=== PATIENT | female | born 1950 | race Caucasian/White ===

== ENCOUNTER 2020-03-15 12:30 | Outpatient (REF) | payer MEDICARE, SELFPAY | END 2020-03-15 12:31 | disposition home or self-care (01) | LOC: HO.10HDL 12:30 | PROVIDERS: PCP Internal Medicine; Visit Provider Internal Medicine | DX: E78.00 Pure hypercholesterolemia, unspecified (principal) | CPT/HCPCS: 86900; 86901 ==

== ENCOUNTER → 2020-03-16 11:27 | Outpatient (BNVA) | payer MEDICARE, SELFPAY | PROVIDERS: PCP Internal Medicine; Visit Provider Surgery Vascular Surgery | DX: I83.11 Varicose veins of right lower extremity with inflammation (principal) | CPT/HCPCS: 99203 ==

== ENCOUNTER 2020-03-25 10:23 | Outpatient (REF) | payer MEDICARE, SELFPAY ==
--- NOTE | 2020-03-25 10:28 | US_ITS ---
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 COMPARISON: 05/12/2020 and 08/11/2016. TECHNIQUE: Color flow triplex imaging and compression Doppler was performed to evaluate both the deep and the superficial systems bilaterally. To evaluate the superficial system, the examination was performed in the upright position. Color-flow Doppler ultrasound and compression ultrasound were utilized. In addition, maneuvers were utilized to demonstrate reflux. FINDINGS: 1. DEEP VENOUS ULTRASOUND OF THE RIGHT LOWER EXTREMITY: Respiratory variation, normal compression and augmented flow are noted in the right common femoral vein as well as the right popliteal vein and there is no evidence of deep venous thrombosis at these locations. There is no evidence of reflux in the deep system in either the common femoral vein or the popliteal vein. There is no evidence of a Vergara's cyst. 2. SUPERFICIAL ULTRASOUND WITH DOPPLER OF RIGHT LOWER EXTREMITY: The right great saphenous vein at the saphenofemoral junction measures 7 mm without reflux, at the mid thigh 5 mm with reflux greater than 3.5 seconds, [id number] 4 mm with reflux greater than 3.5 seconds, [id number]-[id number] 4 mm with reflux of greater than 3.4 seconds, at mid calf 2 mm with reflux greater than 3 seconds, and at the ankle measures 2 mm with reflux greater than 3.5 seconds. The right small saphenous vein measures 3 mm and shows no reflux. Varicosities are seen about the proximal and mid thigh as well as the proximal and midcalf. 3. DEEP VENOUS ULTRASOUND OF THE LEFT LOWER EXTREMITY: Respiratory variation, normal compression and augmented flow are noted in the left common femoral vein as well as the left popliteal vein and there is no evidence of deep venous thrombosis at these locations. There is no evidence of reflux in the deep system in either the common femoral vein or the popliteal vein. There is no evidence of a Vergara's cyst. 4. SUPERFICIAL ULTRASOUND WITH DOPPLER OF LEFT LOWER EXTREMITY: Left great saphenous vein at the saphenofemoral junction measures 6 mm, at the mid thigh 3 mm, [id number]-[id number] 3 mm, qufge-wlj-fqol 3 mm, at mid calf 2 mm and at the ankle measures 2 mm. There is no reflux demonstrated in the left great saphenous vein. The left small saphenous vein measures 2 mm and shows no reflux. US/US venous duplex LE BI IMPRESSION: 1. No evidence of reflux or thrombus in the common femoral veins or popliteal veins bilaterally. 2. No reflux identified at the saphenofemoral junctions but with right lower extremity reflux from the proximal thigh to the ankle of greater than 3 seconds.
== END 2020-03-25 10:24 | disposition home or self-care (01) ==
LOC: HO.US 10:23
PROVIDERS: PCP Internal Medicine; Visit Provider Surgery Vascular Surgery
DX: I83.11 Varicose veins of right lower extremity with inflammation (principal); I83.893 Varicose veins of bilateral lower extremities with other complications
CPT/HCPCS: 93970

== ENCOUNTER → 2020-04-06 09:57 | Outpatient (BNVA) | payer MEDICARE, SELFPAY | PROVIDERS: PCP Internal Medicine; Visit Provider Surgery Vascular Surgery | DX: I83.11 Varicose veins of right lower extremity with inflammation (principal) | CPT/HCPCS: 99212 ==

== ENCOUNTER 2020-08-13 11:41 | Outpatient (REF) | payer MEDICARE, SELFPAY ==
[2020-08-13 13:04] LABS: MANUAL DIFF FLAG NO
[2020-08-13 13:23] LABS: Alanine Aminotransferase 10 U/L (0-31); Albumin Level 4.4 g/dL (3.5-5.0); Alkaline Phosphatase 66 U/L (39-117); Anion Gap 12 (12-20); Aspartate Amino Transferase 16 U/L (5-31); Basophils Percent Auto 0.5 % (0-2); Bilirubin Total 0.6 mg/dL (0.0-1.0); Blood Urea Nitrogen 24 mg/dL (9-16); Carbon Dioxide 29 mmol/L (22-29); Chloride 105 mmol/L (96-108); Cholesterol 227 mg/dL; Eosinophils Absolute Auto 0.1 X10*3/uL (0.0-0.4); Eosinophils Percent Auto 1.8 % (0-4); Estimated Glomerular Filt Rate 48; Glucose Random 97 mg/dL (60-115); HDL Cholesterol 60 mg/dL; Hematocrit 40.5 % (37-47); Hemoglobin 12.9 g/dl (12.0-16.0); Imm Gran Abs Auto 0.01 X10*3/uL (0.00-0.03); Imm Gran Pct Auto 0.3 % (0.0-0.4); LDL Cholesterol Calculated 154 mg/dl; Lymphocytes Percent Auto 24.9 % (20-40); Mean Corpuscular HGB Conc 31.9 g/dl (31.0-35.0); Mean Corpuscular Hemoglobin 30.9 pg (27.0-33.0); Mean Corpuscular Volume 97.1 fL (80-98); Mean Platelet Volume 10.6 fL (9.4-12.3); Monocytes Absolute Auto 0.3 X10*3/uL (0.1-1.2); Monocytes Percent Auto 8.6 % (2-11); Neutrophils Absolute Auto 2.5 X10*3/uL (2.0-8.3); Neutrophils Percent Auto 63.9 % (45-73); Platelet Count 228 X10*3/uL (160-400); Potassium 4.1 mmol/L (3.3-5.1); Red Blood Count 4.17 X10*6/uL (4.20-5.50); Red Cell Distribution Width 14.1 % (11.0-16.0); Sodium 142 mmol/L (135-145); Total Protein 6.7 g/dL (6.5-8.0); Triglycerides 68 mg/dL; White Blood Count 3.9 X10*3/uL (4.8-10.8)
[2020-08-13 13:46] LABS: Free T4 (Free Thyroxine) 0.95 ng/dL (0.71-1.85); Thyroid Stimulating Hormone 2.03 uIU/mL (0.32-4.0); Vitamin D 25-OH Total 13.7 ng/mL (>30)
[2020-08-13 13:55] LABS: Folate 8.3 ng/mL (> or = 4.0); Vitamin B12 165 pg/mL (200-900)
== END 2020-08-13 11:42 | disposition home or self-care (01) ==
LOC: HO.LAB 11:41
PROVIDERS: PCP Internal Medicine; Visit Provider Internal Medicine
DX: E78.00 Pure hypercholesterolemia, unspecified (principal); M85.80 Other specified disorders of bone density and structure, unspecified site
CPT/HCPCS: 36415; 80053; 80061; 82306; 82607; 82746; 84439; 84443; 85025

== ENCOUNTER 2020-08-17 14:19 | Outpatient (REF) | payer MEDICARE, SELFPAY ==
[2020-08-17 16:06] LABS: Folate 9.9 ng/mL (> or = 4.0); Vitamin B12 183 pg/mL (200-900)
[2020-08-22 19:17] LABS: Intrinsic Factor Antibodies Negative (Negative)
[2020-08-25 12:22] LABS: Parietal Cell Antibody 26.7 Unit (<=20.0)
== END 2020-08-17 14:20 | disposition home or self-care (01) ==
LOC: HO.LAB 14:19
PROVIDERS: PCP Internal Medicine; Visit Provider Internal Medicine
DX: E53.8 Deficiency of other specified B group vitamins (principal)
CPT/HCPCS: 36415; 82607; 82746; 83516; 86340

== ENCOUNTER 2020-11-17 09:06 | Outpatient (REF) | payer MEDICARE, SELFPAY ==
--- NOTE | ~2020-11-17 | MM_ITS ---
EXAMINATION: BONE DENSITOMETRY CLINICAL INDICATION: Other specified disorders of bone density and structure. COMPARISON: Previous BD dated 06/09/2016 and baseline BD dated 10/17/2007. TECHNIQUE: Using a ThinkSmart DXA System (software version: 13.1) manufactured by [employer], dual-energy x-ray absorptiometry was performed of the lumbar spine and left hip. The images are of good technical quality. Summary results are attached. FINDINGS: AP SPINE L1-L4: Current: BMD 1.218 g/cm2, Z-score 2.0, T-score 0.3, normal, 2.1% decrease from previous, 5.5% decrease from baseline (<5% change is not significant). Prior: BMD 1.244 g/cm2. Baseline: BMD 1.289 g/cm2. LEFT FEMUR, NECK: Current: BMD 0.660 g/cm2, Z-score -1.0, T-score -2.7, osteoporosis. Prior: BMD 0.756 g/cm2. Baseline: BMD 0.892 g/cm2. LEFT FEMUR, TOTAL: Current: BMD 0.814 g/cm2, Z-score -0.1, T-score -1.5, osteopenia, 11.9% decrease from previous, 18.9% decrease from baseline (<5% change is not significant). Prior: BMD 0.924 g/cm2. Baseline: BMD 1.004 g/cm2. IDENTIFIED RISK FACTORS: Menopause. HISTORY OF FRACTURE: None listed. MEDICATIONS: Calcium supplement and/or multivitamin. Vitamin D. MM/XR DEXA axial skeleton IMPRESSION: 1. DIAGNOSIS: Osteoporosis based on the lowest T-score value of -2.7 in the femoral neck applying World Health Organization criteria. 2. 10-YEAR FRACTURE RISK PREDICTION, FRAX: Major osteoporotic fracture (clinical spine, forearm, hip or shoulder) 16.5%. Hip fracture 4.8%. 3. Treatment Recommendations: NOF guidelines recommend consideration for treatment in postmenopausal women and men age 50 and older presenting with the following: -A hip or vertebral (clinical or morphometric) fracture. -T-score less than or equal to -2.5 at the femoral neck or spine after appropriate evaluation to exclude secondary causes. -Low bone mass at the hip or spine and a 10-year fracture probability by FRAX of greater than or equal to 3% for hip fracture or greater than or equal to 20% for major osteoporotic fracture based on the [place] adapted WHO algorithm. 4. Other Recommendations: All treatment decisions require clinical judgment and consideration of individual patient factors, including patient preferences, comorbidities, previous drug use, risk factors not captured in the FRAX model (e.g. frailty, falls, vitamin D deficiency, increased bone turnover, interval significant decline in bone density) and possible under or overestimation of fracture risk by FRAX. Additional medical evaluation for secondary cause of low bone mineral density may be appropriate. FUTURE SCAN RECOMMENDATION: People with diagnosed cases of osteoporosis or at high risk for fracture should have regular bone mineral density tests. For patients eligible for Medicare, routine testing is allowed once every 2 years. The testing frequency can be increased to one year for patients who have rapidly progressing disease, those who are receiving or discontinuing medical therapy to restore bone mass, or have additional risk factors.
== END 2020-11-17 09:07 | disposition home or self-care (01) ==
LOC: HO.MAMMO 09:06
PROVIDERS: Visit Provider Internal Medicine
DX: Z13.820 Encounter for screening for osteoporosis (principal); M81.0 Age-related osteoporosis without current pathological fracture; M85.80 Other specified disorders of bone density and structure, unspecified site; Z78.0 Asymptomatic menopausal state; Z79.899 Other long term (current) drug therapy
CPT/HCPCS: 77080

== ENCOUNTER 2020-11-20 10:12 | Outpatient (REF) | payer MEDICARE, SELFPAY ==
[2020-11-20 11:19] LABS: MANUAL DIFF FLAG NO
[2020-11-20 11:25] LABS: Basophils Percent Auto 0.3 % (0-2); Eosinophils Absolute Auto 0.1 X10*3/uL (0.0-0.4); Eosinophils Percent Auto 2.1 % (0-4); Hematocrit 41.7 % (37-47); Hemoglobin 13.4 g/dl (12.0-16.0); Imm Gran Abs Auto 0.01 X10*3/uL (0.00-0.03); Imm Gran Pct Auto 0.3 % (0.0-0.4); Lymphocytes Absolute Auto 1.1 X10*3/uL (1.2-4.9); Lymphocytes Percent Auto 32.4 % (20-40); Mean Corpuscular HGB Conc 32.1 g/dl (31.0-35.0); Mean Corpuscular Hemoglobin 31.3 pg (27.0-33.0); Mean Corpuscular Volume 97.4 fL (80-98); Mean Platelet Volume 10.3 fL (9.4-12.3); Monocytes Absolute Auto 0.3 X10*3/uL (0.1-1.2); Monocytes Percent Auto 9.4 % (2-11); Neutrophils Absolute Auto 1.9 X10*3/uL (2.0-8.3); Neutrophils Percent Auto 55.5 % (45-73); Platelet Count 223 X10*3/uL (160-400); Red Blood Count 4.28 X10*6/uL (4.20-5.50); Red Cell Distribution Width 13.3 % (11.0-16.0); White Blood Count 3.4 X10*3/uL (4.8-10.8)
[2020-11-20 11:42] LABS: Alanine Aminotransferase 11 U/L (0-31); Albumin Level 4.4 g/dL (3.5-5.0); Alkaline Phosphatase 67 U/L (39-117); Anion Gap 11 (12-20); Aspartate Amino Transferase 17 U/L (5-31); Bilirubin Total 0.5 mg/dL (0.0-1.0); Blood Urea Nitrogen 18 mg/dL (9-16); Calcium 9.3 mg/dL (8.4-10.2); Carbon Dioxide 29 mmol/L (22-29); Chloride 106 mmol/L (96-108); Estimated Glomerular Filt Rate 53; Glucose Random 115 mg/dL (60-115); Potassium 4.1 mmol/L (3.3-5.1); Sodium 142 mmol/L (135-145); Total Protein 6.7 g/dL (6.5-8.0)
[2020-11-20 12:08] LABS: Free T4 (Free Thyroxine) 0.93 ng/dL (0.71-1.85); Thyroid Stimulating Hormone 1.15 uIU/mL (0.32-4.0)
[2020-11-22 04:01] LABS: Folate 8.6 ng/mL (> or = 4.0); Vitamin B12 1697 pg/mL (200-900)
== END 2020-11-20 10:13 | disposition home or self-care (01) ==
LOC: HO.LAB 10:12
PROVIDERS: PCP Internal Medicine; Visit Provider Internal Medicine
DX: E53.8 Deficiency of other specified B group vitamins (principal)
CPT/HCPCS: 36415; 80053; 82607; 82746; 84439; 84443; 85025

== ENCOUNTER 2021-02-22 09:52 | Outpatient (REF) | payer MEDICARE, SELFPAY ==
--- NOTE | ~2021-02-22 | MM_ITS ---
EXAMINATION: MM SCREENING DIGITAL BREAST TOMOSYNTHESIS, BILATERAL CLINICAL INFORMATION: Screening. Asymptomatic. The lifetime risk of breast cancer based on the Tyrer-Cuzick Model is 3%. COMPARISON: Mammography: 11/11/2019, 11/05/2018, 09/07/2017 TECHNIQUE: Digital breast tomosynthesis is performed in both the craniocaudal and mediolateral oblique views along with computer-aided detection (CAD). Synthesized 2D images are generated from the tomosynthesis. Additional right CC view is provided. FINDINGS: There are scattered areas of fibroglandular density (ACR BI-RADS breast composition Category b). There are no significant masses, abnormal calcifications, or other abnormalities. There is a dermal lesion overlying the upper outer right breast and also marked with mole marker. The axilla are unremarkable. No significant changes. MM/MM tomosynthesis screening BI IMPRESSION: No mammographic evidence of malignancy. ASSESSMENT: BI-RADS 2: Benign RECOMMENDATION: Routine annual mammography screening. This patient's information was entered into a reminder system with a target due date for their next mammogram.
== END 2021-02-22 09:53 | disposition home or self-care (01) ==
LOC: HO.MAMMO 09:52
PROVIDERS: PCP Internal Medicine; Visit Provider Internal Medicine
DX: Z12.31 Encounter for screening mammogram for malignant neoplasm of breast (principal)
CPT/HCPCS: 77063; 77067

== ENCOUNTER → 2021-06-30 12:03 | Outpatient (BNVA) | payer MEDICARE, SELFPAY | PROVIDERS: PCP Internal Medicine; Visit Provider Orthopaedic Surgery | DX: M75.41 Impingement syndrome of right shoulder (principal); M75.42 Impingement syndrome of left shoulder | CPT/HCPCS: 20610; 99212; J1100 ==

== ENCOUNTER 2021-08-09 10:42 | Outpatient (REF) | payer MEDICARE, SELFPAY ==
[2021-08-09 11:02] LABS: MANUAL DIFF FLAG NO
[2021-08-09 11:32] LABS: Estimated Average Glucose 111 mg/dL; Hemoglobin A1c % 5.5 %
[2021-08-09 11:35] LABS: Basophils Percent Auto 0.9 % (0-2); Eosinophils Absolute Auto 0.5 X10*3/uL (0.0-0.4); Eosinophils Percent Auto 15.2 % (0-4); Hematocrit 39.4 % (37.0-47.0); Hemoglobin 12.6 g/dl (12.0-16.0); Imm Gran Abs Auto 0.01 X10*3/uL (0.00-0.03); Imm Gran Pct Auto 0.3 % (0.0-0.4); Lymphocytes Absolute Auto 0.9 X10*3/uL (1.2-4.9); Lymphocytes Percent Auto 25.8 % (20-40); Mean Corpuscular Hemoglobin 31.3 pg (27.0-33.0); Mean Platelet Volume 10.4 fL (9.4-12.3); Monocytes Absolute Auto 0.3 X10*3/uL (0.1-1.2); Monocytes Percent Auto 8.6 % (2-11); Neutrophils Absolute Auto 1.7 x10*3/uL (2.0-8.3); Neutrophils Percent Auto 49.2 % (45-73); Platelet Count 217 X10*3/uL (160-400); Red Blood Count 4.02 X10*6/uL (4.20-5.50); Red Cell Distribution Width 13.3 % (11.0-16.0); White Blood Count 3.5 X10*3/uL (4.8-10.8)
[2021-08-09 12:12] LABS: Alanine Aminotransferase 16 U/L (0-31); Alkaline Phosphatase 55 U/L (39-117); Anion Gap 12 (12-20); Aspartate Amino Transferase 19 U/L (5-31); Bilirubin Total 0.6 mg/dL (0.0-1.0); Blood Urea Nitrogen 28 mg/dL (9-16); Carbon Dioxide 26 mmol/L (22-29); Chloride 110 mmol/L (96-108); Cholesterol 203 mg/dL; Estimated Glomerular Filt Rate 52; Glucose Random 92 mg/dL (60-115); HDL Cholesterol 57 mg/dL; LDL Cholesterol Calculated 134 mg/dl; Potassium 4.5 mmol/L (3.3-5.1); Sodium 143 mmol/L (135-145); Total Protein 6.1 g/dL (6.5-8.0); Triglycerides 64 mg/dL
[2021-08-09 12:15] LABS: Free T4 (Free Thyroxine) 0.92 ng/dL (0.71-1.85); Thyroid Stimulating Hormone 2.41 uIU/mL (0.32-4.0); Vitamin D 25-OH Total 32.9 ng/mL (>30)
[2021-08-09 12:35] LABS: Vitamin B12 434 pg/mL (200-900)
== END 2021-08-09 10:43 | disposition home or self-care (01) ==
LOC: HO.LAB 10:42
PROVIDERS: PCP Internal Medicine; Visit Provider Internal Medicine
DX: E78.00 Pure hypercholesterolemia, unspecified (principal); E53.8 Deficiency of other specified B group vitamins
CPT/HCPCS: 36415; 80053; 80061; 82306; 82607; 82746; 83036; 84439; 84443; 85025

== ENCOUNTER 2021-08-30 08:11 | Outpatient (REF) | payer MEDICARE, SELFPAY ==
--- NOTE | ~2021-08-30 | US_ITS ---
EXAMINATION: US RETROPERITONEAL LIMITED (RENAL ONLY) CLINICAL INFORMATION: Essential hypertension. COMPARISON: None. TECHNIQUE: Routine grayscale imaging of kidneys was performed. Addition retroperitoneal Doppler was performed of the kidneys and the artery. FINDINGS: RIGHT KIDNEY: 8.6 x 4.3 x 5.4 cm (SAG x AP x TRV). The kidney is normal in size, contour, and echogenicity. Renal cortical thickness is normal. No calculi or focal parenchymal lesions. No hydronephrosis. LEFT KIDNEY: 9.6 x 5.5 x 4.7 cm (SAG x AP x TRV). The kidney is normal in size, contour, and echogenicity. Renal cortical thickness is normal. No calculi or focal parenchymal lesions. No hydronephrosis. There are multiple peripelvic left renal cyst seen. DOPPLER EXAM: Right Kidney: The proximal renal artery velocity measures 165 cm/s, midsegment measures 185 cm/s and distal segment measures 10 5 cm/s. The average resistive index measures 0.66. The renal aortic ratio cannot be calculated due to elevated midaortic velocity of 116 cm/s. Left Kidney: The proximal renal artery velocity measures 138 cm/s, midsegment measures 130 cm/s and distal segment measures 59 cm/s. The average resistive index measures 0.68. The renal aortic ratio cannot be calculated due to elevated midaortic velocity of 116 cm/s. US/US renal doppler IMPRESSION: Left peripelvic renal cysts. No echogenic renal calculi or hydronephrosis in either side. There is no suggestion for renal artery stenosis on renal Doppler exam.
--- NOTE | ~2021-08-30 | US_ITS ---
EXAMINATION: US RETROPERITONEAL LIMITED (RENAL ONLY) CLINICAL INFORMATION: Essential hypertension. COMPARISON: None. TECHNIQUE: Routine grayscale imaging of kidneys was performed. Addition retroperitoneal Doppler was performed of the kidneys and the artery. FINDINGS: RIGHT KIDNEY: 8.6 x 4.3 x 5.4 cm (SAG x AP x TRV). The kidney is normal in size, contour, and echogenicity. Renal cortical thickness is normal. No calculi or focal parenchymal lesions. No hydronephrosis. LEFT KIDNEY: 9.6 x 5.5 x 4.7 cm (SAG x AP x TRV). The kidney is normal in size, contour, and echogenicity. Renal cortical thickness is normal. No calculi or focal parenchymal lesions. No hydronephrosis. There are multiple peripelvic left renal cyst seen. DOPPLER EXAM: Right Kidney: The proximal renal artery velocity measures 165 cm/s, midsegment measures 185 cm/s and distal segment measures 10 5 cm/s. The average resistive index measures 0.66. The renal aortic ratio cannot be calculated due to elevated midaortic velocity of 116 cm/s. Left Kidney: The proximal renal artery velocity measures 138 cm/s, midsegment measures 130 cm/s and distal segment measures 59 cm/s. The average resistive index measures 0.68. The renal aortic ratio cannot be calculated due to elevated midaortic velocity of 116 cm/s. US/US renal BI IMPRESSION: Left peripelvic renal cysts. No echogenic renal calculi or hydronephrosis in either side. There is no suggestion for renal artery stenosis on renal Doppler exam.
[2021-08-30 11:41] LABS: Appearance Urine CLEAR; Color Urine YELLOW; Glucose Urine UA NEG (NEG); Leukocyte Esterase Urine NEG (NEG); Nitrite Urine NEG (NEG); PH 5.5 (5.0-8.0); Urine Blood NEG (NEG); Urine Ketones NEG (NEG); Urine Protein NEG (NEG-TRACE)
[2021-08-30 11:56] LABS: RBC Urine 0 /HPF (0); WBC Urine 0-2 /HPF (0-4)
[2021-08-30 11:57] LABS: Squamous Epithelial Cell Urine TRACE /LPF
[2021-08-30 11:59] LABS: Alanine Aminotransferase 11 U/L (0-31); Albumin Level 3.9 g/dL (3.5-5.0); Alkaline Phosphatase 55 U/L (39-117); Anion Gap 9 (12-20); Aspartate Amino Transferase 13 U/L (5-31); Bilirubin Total 0.6 mg/dL (0.0-1.0); Blood Urea Nitrogen 24 mg/dL (9-16); C Reactive Protein 0.06 mg/dL (< or = 0.50); Calcium 9.1 mg/dL (8.4-10.2); Carbon Dioxide 27 mmol/L (22-29); Chloride 109 mmol/L (96-108); Estimated Glomerular Filt Rate 49; Glucose Random 99 mg/dL (60-115); Potassium 4.3 mmol/L (3.3-5.1); Sodium 141 mmol/L (135-145)
[2021-08-30 12:56] LABS: Erythrocyte Sedimentation Rate 5 MM/HR (0-20)
[2021-09-01 07:07] LABS: Lyme Abs Screen <0.90 index
[2021-09-02 23:28] LABS: Anti Nuclear Antibody Pattern Nuclear, Nucleolar; Anti Nuclear Antibody Screen POSITIVE (NEGATIVE); Anti Nuclear Antibody Titer 1:40 titer
== END 2021-08-30 08:12 | disposition home or self-care (01) ==
LOC: HO.HMGCX 08:11
PROVIDERS: PCP Internal Medicine; Visit Provider Internal Medicine
DX: I10 Essential (primary) hypertension (principal); R42 Dizziness and giddiness; R79.89 Other specified abnormal findings of blood chemistry
CPT/HCPCS: 36415; 76775; 80053; 81001; 85652; 86038; 86039; 86140; 86617; 86618; 93975

== ENCOUNTER 2021-10-18 11:00 | Outpatient (RCR) | payer MEDICARE, SELFPAY ==
--- NOTE | 2021-08-08 14:43 | MHC.PT.EP ---
[facility] [place] Office [place] Office [place] Office [address] Walter Aguirre [address] [phone] F: [phone] F: [phone] F: [phone] F: [phone] Physical Therapy Plan of Care Date of Evaluation: Date of Surgery: N/A Diagnosis: chronic B shoulder pain Assessment: pt presents to physical therapy with pain, decreased range of motion, decreased strength, impaired functional mobility, impaired postural awareness, and gait deviations. pt is a good candidate for skilled PT due to age, potential remediation of impairments, typical disease/condition progression and prognosis, comorbidities, and motivation. pt would benefit from tailored strengthening and stretching exercise program, functional training, gait training, postural re-training, neuromuscular re-education, modalities as needed for pain, equipment safety demonstration. Frequency and Duration: The patient will be seen 2x/wk fo r6 wks Short Term Goals: pt will be I w/ HEP to promote self-management of condition. pt will improve B shoulder flexion AROM by 10 degrees to promote ease in reaching for objects on higher shelves. pt will improve R shoulder internal rotation to at least L2 to promote ease in upper body dressing. Mcc Goals: pt will report a statistically significant improvement in self-reported outcome measure, SPADI, to promote return to PLOF. pt will improve R shoulder flexion and abduction strength to 5/5 to promote ease in carrying 10# object x15' to promote return to carrying groceries. Treatment Plan: Modalities to reduce pain, spasms and effusion. Manual therapy to restore motion and function. Therapeutic exercise to improve strength and flexibility. Neuromuscular re-education for posture and balance. Therapeutic activities to return to functional activities of daily living. Electronically signed by: Radha Preciado PT, DPT Please sign and return to therapist. Thank you for your referral.
--- NOTE | 2021-10-18 12:51 | MHC.PT.DC ---
[facility] [place] Office [place] Office [place] Office [address] Walter Aguirre [address] [phone] F: [phone] F: [phone] F: [phone] F: [phone] Physical Therapy Discharge Report Diagnosis: chronic B shoulder pain Date of Surgery: N/A Date of Evaluation: 08/08/21 Date of Discharge: 10/18/21 Treatments to Date: 16 Cancellations to Date: 0 No Shows to Date: 0 Discharge Status: Improved Function Independent with HEP Discharge Summary: The patient overall has reported a significant improvement in her shoulder pain frequency and intensity. She no longer gets any stabbing pain. She is able to perform more activities that used to exacerbate her pain with little to no symptoms. The patient at this time presents with mostly soft tissue restrictions including tension and trigger points that reproduce her radiating symptoms. She has been educated several times regarding the importance of finding a massage therapist to work out these restrictions. She is independent with her home exercise program. She is discharged from this physical therapy plan of care per her request after attending for two months. Electronically signed by: Radha Preciado PT, DPT Please sign and return to therapist. Thank you for your referral.
== END 2021-10-18 12:51 | disposition home or self-care (01) ==
LOC: HO.PT 11:00
PROVIDERS: PCP Internal Medicine; Visit Provider Orthopaedic Surgery
DX: M75.41 Impingement syndrome of right shoulder (principal); M75.42 Impingement syndrome of left shoulder
CPT/HCPCS: 97110; 97140; 97150; 97162; 97164

== ENCOUNTER 2022-05-31 12:21 | Outpatient (REF) | payer MEDICARE, SELFPAY ==
--- NOTE | ~2022-05-31 | MM_ITS ---
EXAMINATION: MM SCREENING DIGITAL BREAST TOMOSYNTHESIS, BILATERAL CLINICAL INFORMATION: Screening. Asymptomatic. The lifetime risk of breast cancer based on the Tyrer-Cuzick Model is 3%. COMPARISON: Mammography: 02/22/2021, 11/11/2019, 11/05/2018 TECHNIQUE: Digital breast tomosynthesis is performed in both the craniocaudal and mediolateral oblique views along with computer-aided detection (CAD). Synthesized 2D images are generated from the tomosynthesis. FINDINGS: There are scattered areas of fibroglandular density (ACR BI-RADS breast composition Category b). There are no significant masses, abnormal calcifications, or other abnormalities. No developing density or architectural abnormality. A dermal lesion again noted overlying the upper outer right breast. The axilla are unremarkable. No significant changes. MM/MM tomosynthesis screening BI IMPRESSION: No mammographic evidence of malignancy. ASSESSMENT: BI-RADS 2: Benign RECOMMENDATION: Routine annual mammography screening. This patient's information was entered into a reminder system with a target due date for their next mammogram.
== END 2022-05-31 12:22 | disposition home or self-care (01) ==
LOC: HO.MAMMO 12:21
PROVIDERS: PCP Internal Medicine; Visit Provider Internal Medicine
DX: Z12.31 Encounter for screening mammogram for malignant neoplasm of breast (principal)
CPT/HCPCS: 77063; 77067

== ENCOUNTER 2022-08-18 11:13 | Outpatient (REF) | payer MEDICARE, SELFPAY ==
[2022-08-18 11:26] LABS: MANUAL DIFF FLAG NO
[2022-08-18 11:49] LABS: Basophils Percent Auto 0.7 % (0-2); Eosinophils Absolute Auto 0.1 X10*3/uL (0.0-0.4); Eosinophils Percent Auto 3.3 % (0-4); Hematocrit 40.1 % (37.0-47.0); Hemoglobin 13.2 g/dl (12.0-16.0); Imm Gran Abs Auto 0.01 X10*3/uL (0.00-0.03); Imm Gran Pct Auto 0.3 % (0.0-0.4); Lymphocytes Absolute Auto 0.8 X10*3/uL (1.2-4.9); Lymphocytes Percent Auto 26.2 % (20-40); Mean Corpuscular HGB Conc 32.9 g/dl (31.0-35.0); Mean Corpuscular Hemoglobin 31.2 pg (27.0-33.0); Mean Corpuscular Volume 94.8 fL (80.0-98.0); Mean Platelet Volume 10.3 fL (9.4-12.3); Monocytes Absolute Auto 0.2 X10*3/uL (0.1-1.2); Monocytes Percent Auto 7.9 % (2-11); Neutrophils Absolute Auto 1.9 x10*3/uL (2.0-8.3); Neutrophils Percent Auto 61.6 % (45-73); Platelet Count 194 X10*3/uL (160-400); Red Blood Count 4.23 X10*6/uL (4.20-5.50); Red Cell Distribution Width 13.2 % (11.0-16.0); White Blood Count 3.1 X10*3/uL (4.8-10.8)
[2022-08-18 12:08] LABS: Estimated Average Glucose 114 mg/dL; Hemoglobin A1c % 5.6 %
[2022-08-18 12:23] LABS: Alanine Aminotransferase 9 U/L (0-31); Albumin Level 4.1 g/dL (3.5-5.0); Alkaline Phosphatase 53 U/L (39-117); Anion Gap 11 (12-20); Aspartate Amino Transferase 15 U/L (5-31); Bilirubin Total 0.8 mg/dL (0.0-1.0); Blood Urea Nitrogen 20 mg/dL (9-16); Calcium 9.1 mg/dL (8.4-10.2); Carbon Dioxide 31 mmol/L (22-29); Chloride 105 mmol/L (96-108); Cholesterol 240 mg/dL; Estimated Glomerular Filt Rate 44; Glucose Random 101 mg/dL (60-115); HDL Cholesterol 51 mg/dL; LDL Cholesterol Calculated 171 mg/dl; Potassium 3.8 mmol/L (3.3-5.1); Sodium 143 mmol/L (135-145); Total Protein 6.4 g/dL (6.5-8.0); Triglycerides 90 mg/dL
[2022-08-18 12:38] LABS: Folate 8.1 ng/mL (> or = 4.0); Free T4 (Free Thyroxine) 1.03 ng/dL (0.71-1.85); Vitamin B12 376 pg/mL (200-900); Vitamin D 25-OH Total 45.6 ng/mL (>30)
== END 2022-08-18 11:14 | disposition home or self-care (01) ==
LOC: HO.LAB 11:13
PROVIDERS: PCP Internal Medicine; Visit Provider Internal Medicine
DX: R73.02 Impaired glucose tolerance (oral) (principal); E53.8 Deficiency of other specified B group vitamins; E78.00 Pure hypercholesterolemia, unspecified; M81.0 Age-related osteoporosis without current pathological fracture
CPT/HCPCS: 36415; 80053; 80061; 82306; 82607; 82746; 83036; 84439; 84443; 85025

== ENCOUNTER 2022-08-29 09:01 | Outpatient (REF) | payer MEDICARE, SELFPAY ==
--- NOTE | ~2022-08-29 | XR_ITS ---
EXAMINATION: XR SHOULDER, RIGHT XR SHOULDER, LEFT CLINICAL INFORMATION: Right shoulder pain COMPARISON: Studies dating between February 18, 2019 and February 02, 2012. TECHNIQUE: Two views of each of the shoulders. 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 Mild widening of the acromioclavicular joints appears unchanged compared with priors. No fracture or dislocation is seen. Bony mineralization appears preserved. The soft tissues appear unremarkable. The aorta is atherosclerotic. There are mild degenerative changes of the spine.
--- NOTE | ~2022-08-29 | XR_ITS ---
EXAMINATION: XR SHOULDER, RIGHT XR SHOULDER, LEFT CLINICAL INFORMATION: Right shoulder pain COMPARISON: Studies dating between February 18, 2019 and February 02, 2012. TECHNIQUE: Two views of each of the shoulders. 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 Mild widening of the acromioclavicular joints appears unchanged compared with priors. No fracture or dislocation is seen. Bony mineralization appears preserved. The soft tissues appear unremarkable. The aorta is atherosclerotic. There are mild degenerative changes of the spine.
== END 2022-08-29 09:02 | disposition home or self-care (01) ==
LOC: HO.XRAY 09:01
PROVIDERS: PCP Internal Medicine; Visit Provider Internal Medicine
DX: M25.511 Pain in right shoulder (principal); M25.512 Pain in left shoulder
CPT/HCPCS: 73030

== ENCOUNTER → 2022-11-03 12:30 | Outpatient (BNVA) | payer MEDICARE, SELFPAY | PROVIDERS: PCP Internal Medicine; Visit Provider Physician Assistant | DX: M75.41 Impingement syndrome of right shoulder (principal); M75.42 Impingement syndrome of left shoulder | CPT/HCPCS: 20610; 99202; J1020 ==

== ENCOUNTER 2023-01-05 09:55 | Outpatient (AMB) | payer MEDICARE, SELFPAY ==
--- NOTE | 2023-01-05 10:06 | AM.OFFVISNUR ---
Intake Intake Visit Reasons: B-12 Allergies lisinopril Allergy (Intermediate, Verified 09/13/22 09:41) Cough latex [Latex] Allergy (Mild, Verified 09/13/22 09:41) [facility] Office Meds cyanocobalamin (vitamin B-12) Performing Provider: Jackeline Oakley MD Administered by: Courtney Minor RN on 01/05/23 10:12 Dose Route Admin Location Lot Number Expiration Date [facility] Peer Specialist 1,000 mcg IM left deltoid [id number] 02/24/23 [id number] [facility] Coding Diagnoses Assessment & Plan Assessment & Plan Orders: Orders AMB Vitamin B12 Injection Patient Supplied Today E53.8 - Deficiency of other specified B group vitamins
== END 2023-01-05 10:13 | disposition home or self-care (01) ==
PROVIDERS: PCP Internal Medicine; Visit Provider Internal Medicine
DX: E53.8 Deficiency of other specified B group vitamins (principal)
CPT/HCPCS: 96372; J3420

== ENCOUNTER 2023-02-07 11:42 | Outpatient (AMB) | payer MEDICARE, SELFPAY ==
--- NOTE | 2023-02-07 11:42 | A.OFFVIS_ITS ---
Intake Intake Visit Reasons: TH- B/L shoulder pain Intake Note: Lyudmila a 73 year old female who is schedule for a telephone visit for a follow up of bilateral shoulder pain. Patient reports constant pain that gets worse with reaching and grasping motion. She has tried and failed PT. Allergies lisinopril Allergy (Intermediate, Verified 02/07/23 11:46) Cough latex [Latex] Allergy (Mild, Verified 02/07/23 11:46) [facility] HPI TH- B/L shoulder pain HPI Details 73 yo female returns via telehealth for bilat shoulder pain. She continues to have pain in both shoulders. She continues to have pain with daily activities, such as reaching or lifting. She has had steroid injections in both shoulders with no relief. She states she experienced some dizziness from the previoius injections. She has taken NSAIDs at home without significant relief. She has done PT for up to 8-12 weeks and also home therapy exercises. [facility] Medical History (Updated 02/07/23 @ 11:47 by Aiden Hussein PA-C) Toe fracture, right Hypercholesterolemia Surgical History H/O wrist surgery History of arthroscopy of left knee History of arthroscopy of left shoulder History of arthroscopy of right shoulder History of cholecystectomy Family History (Updated 08/24/22 @ 10:10 by Sarina Huitron) Father FH: prostate cancer Bladder cancer Mother CVD (cardiovascular disease) Social History Housing: House Alcohol intake: never Patient Tobacco Use Status: Never used Tobacco e-Cigarette/Vaping Use: Never Used Second Hand Smoke Exposure: No service: No Current occupational status: retired Current occupation: [employer] Cognitive needs: No Hearing needs: No Vision needs: Yes Review of Systems Const All systems reviewed & are unremarkable except as noted in HPI and below Physical Exam Extrem Other: Bilateral shoulder: Normal to inspection. Tenderness over the bicipital groove and along the deltoid region of the shoulder. She has tenderness along the muscle belly of the bicep, there is no palpable defect along the proximal or distal bicep tendon. Forward flexion to 110, external rotation to 90, internal rotation to S1. Pain with RTC strength testing. Pain with movement along the impingement arc, right > left. Negative cross body abduction. NVI. Assessment & Plan Assessment & Plan (1) Rotator cuff impingement syndrome of right shoulder: Code(s): M75.41 - Impingement syndrome of right shoulder (2) Left shoulder tendonitis: Code(s): M77.8 - Other enthesopathies, not elsewhere classified Plan Ms Zarate continues to fail conservative treatment and experiences worsening symptoms in her daily activities. An MRI of both shoulder has been ordered to further evaluate the integrity of the rotator cuff to determine the next step in her treatment. Telehealth Telehealth Location of provider rendering services: practice address Location of patient: address on file Patient Identification confirmed using: Name, : Yes Telehealth method: voice only Patient verbally consented to treatment: Yes Patient verbally consented to billing insurance company: Yes Patient informed of any privacy concerns related to visit: Yes Minutes spent on Phone/Video with Pt.: 10 Coding Level of Care Code Est Pt Level 3 (69876) Diagnoses Rotator cuff impingement syndrome of right shoulder M75.41 Left shoulder tendonitis M77.8
== END 2023-02-07 11:49 | disposition home or self-care (01) ==
LOC: HO.HOS 11:42
PROVIDERS: PCP Internal Medicine; Visit Provider Physician Assistant
DX: M75.41 Impingement syndrome of right shoulder (principal); M77.8 Other enthesopathies, not elsewhere classified
CPT/HCPCS: 99442

== ENCOUNTER → 2023-02-07 11:42 | Outpatient (BNVA) | payer MEDICARE, SELFPAY | PROVIDERS: PCP Internal Medicine; Visit Provider Physician Assistant ==

== ENCOUNTER 2023-02-19 09:26 | Outpatient (REF) | payer MEDICARE, SELFPAY ==
[2023-02-19 10:37] LABS: Alanine Aminotransferase 13 U/L (0-31); Albumin Level 4.2 g/dL (3.5-5.0); Alkaline Phosphatase 57 U/L (39-117); Anion Gap 14 (12-20); Aspartate Amino Transferase 17 U/L (5-31); Bilirubin Total 0.6 mg/dL (0.0-1.0); Blood Urea Nitrogen 17 mg/dL (9-16); Calcium 9.4 mg/dL (8.4-10.2); Carbon Dioxide 26 mmol/L (22-29); Chloride 107 mmol/L (96-108); Cholesterol 210 mg/dL (<200); Estimated Glomerular Filt Rate 54; Glucose Random 102 mg/dL (60-115); HDL Cholesterol 62 mg/dL (>40); LDL Cholesterol Calculated 136 mg/dL (<100); Potassium 3.7 mmol/L (3.3-5.1); Sodium 143 mmol/L (135-145); Total Protein 6.6 g/dL (6.5-8.0); Triglycerides 63 mg/dL (<150)
== END 2023-02-19 09:27 | disposition home or self-care (01) ==
LOC: HO.LAB 09:26
PROVIDERS: PCP Internal Medicine; Visit Provider Internal Medicine
DX: E78.00 Pure hypercholesterolemia, unspecified (principal)
CPT/HCPCS: 36415; 80053; 80061

== ENCOUNTER 2023-02-23 09:34 | Outpatient (AMB) | payer MEDICARE, SELFPAY ==
[2023-02-23 09:44] VITALS: BP 112/62; PULSE 70; O2SAT 97; BMI 23.6
--- NOTE | 2023-02-23 09:44 | A.OFFPC_ITS ---
Vital Signs 02/23/23 09:44 Height 5 ft 2 in Weight 129 lb BMI 23.6 BP 112/62 Blood Pressure Location Lt brachial Position Sitting Pulse 70 Pulse Source Pulse Oximeter Pulse Oximetry (%) 97 Oxygen Delivery Method Room Air Intake Visit Reasons: Cholesterol Allergies lisinopril Allergy (Intermediate, Verified 02/23/23 09:45) Cough latex [Latex] Allergy (Mild, Verified 02/23/23 09:45) RASH Medication List - Last Reconciled 02/23/23 by Jackeline Oakley MD calcium carbonate-vitamin D3 600 mg-5 mcg (200 unit) (Calcium 600 + D(3)) caps PO cetirizine (Zyrtec) 10 mg PO DAILY PRN clobetasol 0.05% 1 appl topical BID 30 days cyanocobalamin (vitamin B-12) Inject 1000 mcg Q week x 4 weeks then once a month IM; 3 months fluticasone propionate 50 mcg/actuation (Flonase Allergy Relief) 2 sprays intranasal DAILY hydrochlorothiazide 12.5 mg PO DAILY 90 days Tobacco use date assessed: 08/24/22 Fall risk assessment: No Falls in past year Last assessed Fall Risk: 02/23/23 Dental Screening Dental Screen Date: 02/23/23 Did you have a dental visit in the last 12 months?: Yes Did you have a dental problem in the last 6 months where you did not have access to dental care?: No Was dental information given to patient?: Patient has dentist HPI Cholesterol HPI Details 73-year-old female with hypercholesterol emia osteoporosis impaired glucose tolerance hypertension last seen in August 2022 due to left ear infection. Patient is here for follow-up bone density is due, up-to-date with mammogram and colonoscopy. Patient had problems with shoulder pain has seen Orthopedics through Telehealth diagnosis of right talar cough impingement syndrome on conservative measure and was advised to get an MRI [facility] Medical History (Updated 02/07/23 @ 11:47 by Aiden Hussein PA-C) Toe fracture, right Hypercholesterolemia Surgical History History of arthroscopy of left shoulder H/O wrist surgery History of arthroscopy of right shoulder History of cholecystectomy History of arthroscopy of left knee Family History (Updated 08/24/22 @ 10:10 by Sarina Huitron) Father FH: prostate cancer Bladder cancer Mother CVD (cardiovascular disease) Social History Housing: House Alcohol intake: never Patient Tobacco Use Status: Never used Tobacco e-Cigarette/Vaping Use: Never Used Second Hand Smoke Exposure: No service: No Current occupational status: retired Current occupation: Rt handed Cognitive needs: No Hearing needs: No Vision needs: Yes Questionnaire PHQ-9 Over the last 2 weeks, how often have you been bothered by any of the following problems? 1. Little interest or pleasure in doing things: not at all 2. Feeling down, depressed, or hopeless: not at all 3. Trouble falling or staying asleep, or sleeping too much: not at all 4. Feeling tired or having little energy: not at all 5. Poor appetite or overeating: not at all 6. Feeling bad about yourself - or that you are a failure or have let yourself or your family down: not at all 7. Trouble concentrating on things, such as reading the newspaper or watching television: not at all 8. Moving or speaking so slowly that other people could have noticed. Or the opposite - being so fidgety or restless that you have been moving around a lot more than usual: not at all 9. Thoughts that you would be better off or of hurting yourself in some way: not at all Total score: 0 Depression Screening Interpretation: Negative Source: Developed by Drs. Sawyer Childs, Selena Weathers, Claus Jefferson and colleagues, with an educational navin from [employer]. Thrive Questionnaire Date Thrive assessed: 08/24/22 AUDIT C Alcohol Use Questionnaire (AUDIT-C) 1. How often do you have a drink containing alcohol?: Never 3. How often do you have six or more drinks on one occasion?: Never Total Score: 0 JINNY-7 AMB Questionnaire JINNY-7 Date JINNY - 7 assessed: 08/24/22 Source: Developed by Drs. Sawyer Childs, Selena Weathers, Claus Jefferson and colleagues, with an educational navin from [employer]. Physical exam (Primary Care) Vital Signs: Last Vital Signs Pulse 70 02/23/23 09:44 BP 112/62 02/23/23 09:44 Pulse Ox 97 02/23/23 09:44 Oxygen Delivery Method Room Air 02/23/23 09:44 BMI result Body Mass Index 23.6 Tobacco/Smoking Status: Tobacco use Status Tobacco use date assessed 08/24/22 02/23/23 09:50 Patient Tobacco Use Status Never used Tobacco 02/23/23 09:50 e-Cigarette/Vaping Use Never Used 02/23/23 09:50 PHQ-9: PHQ-9 Score PHQ-9: Total score 0 02/23/23 09:50 Depression Screening Interpretation: Negative Thrive Assessment: Date of Thrive Assessment Date Thrive assessed 08/24/22 02/23/23 09:50 Const General: alert; No acute distress Eyes Conjunctivae: conjunctivae normal Resp Auscultation: clear to auscultation bilaterally Cardio Rate: regular rate Rhythm: regular rhythm GI Inspection: Yes normal to inspection Extrem General: Yes normal to inspection and No edema Assessment and Plan Assessment & Plan (1) Bilateral shoulder pain: Code(s): M25.511 - Pain in right shoulder; M25.512 - Pain in left shoulder Plan: Patient is being followed up by orthopedics and has recommended MRI of the shoulder (2) Hypertension: Code(s): I10 - Essential (primary) hypertension Plan: Continue with blood pressure medication. Decrease salt intake and exercise on hydrochlorothiazide noted weight loss (3) Impaired glucose tolerance: Code(s): R73.02 - Impaired glucose tolerance (oral) Plan: Decrease the amount of carbohydrate intake, pasta, bread, rice and potatoes are all sugar and that is aside from all the sweet stuff, remember that fruits are good but they are Sweet also. Noted weight loss (4) Osteoporosis: Comment: November 2020 Code(s): M81.0 - Age-related osteoporosis without current pathological fracture Plan: Advised patient to get bone density test (5) Hypercholesterolemia: Code(s): E78.00 - Pure hypercholesterolemia, unspecified Plan: Avoid fried foods, chicken skin, eggs, butter margarine, pastries and meat. Be it pork or beef they have a lot of cholesterol LDL goal of less than 130 and triglyceride of less than 150. LDL has dropped down as patient lost weight Orders: Orders XR DEXA axial skeleton Today M81.0 - Age-related osteoporosis without current pathological fracture Medications: Changed From cyanocobalamin (vitamin B-12) Inject 1000 mcg Q week x 4 weeks then once a month IM; 3 months 10 mL 3RF E53.8 - Deficiency of other specified B group vitamins To cyanocobalamin (vitamin B-12) once Q 3 months 30 mL 3RF 3 months E53.8 - Deficiency of other specified B group vitamins Discontinued naproxen (Naprosyn) Discontinued Reason: Doctor's Order 500 mg PO BID 60 tabs 2RF M79.671 - Pain in right foot hydrochlorothiazide Discontinued Reason: Doctor's Order 12.5 mg PO DAILY 90 days 90 tabs 3RF I10 - Essential (primary) hypertension Coding Level of Care Code Est Pt Level 4 (06963) Diagnoses Bilateral shoulder pain M25.511; M25.512 Hypertension I10 Impaired glucose tolerance R73.02 Osteoporosis M81.0 Hypercholesterolemia E78.00
== END 2023-02-23 10:57 | disposition home or self-care (01) ==
PROVIDERS: Visit Provider Internal Medicine
DX: M25.511 Pain in right shoulder (principal); M25.512 Pain in left shoulder; I10 Essential (primary) hypertension; R73.02 Impaired glucose tolerance (oral); M81.0 Age-related osteoporosis without current pathological fracture; E78.00 Pure hypercholesterolemia, unspecified
CPT/HCPCS: 99214

== ENCOUNTER 2023-03-09 08:39 | Outpatient (REF) | payer MEDICARE, SELFPAY ==
--- NOTE | ~2023-03-09 | MM_ITS ---
EXAMINATION: BONE DENSITOMETRY CLINICAL INDICATION: Osteoporosis. COMPARISON: Previous BD dated 11/17/2020 and baseline BD dated 10/17/2007. TECHNIQUE: Using a '[employer] DXA System (software version: 13.1) manufactured by [employer], dual-energy x-ray absorptiometry was performed of the lumbar spine and left hip. The images are of good technical quality. Summary results are attached. FINDINGS: LEFT FEMUR, NECK: Current: BMD 0.778 g/cm2, Z-score 0.1, T-score -1.9, osteopenia. Prior: BMD 0.660 g/cm2. Baseline: BMD 0.892 g/cm2. LEFT FEMUR, TOTAL: Current: BMD 0.860 g/cm2, Z-score 0.6, T-score -1.2, osteopenia, 5.7% increase from previous, 14.3% decrease from baseline (<5% change is not significant). Prior: BMD 0.814 g/cm2. Baseline: BMD 1.004 g/cm2. AP SPINE L1-L4: Current: BMD 1.102 g/cm2, Z-score 1.3, T-score -0.7, normal, 9.5% decrease from previous, 14.5% decrease from baseline (<5% change is not significant). Prior: BMD 1.218 g/cm2. Baseline: BMD 1.289 g/cm2. IDENTIFIED RISK FACTORS: Menopause. HISTORY OF FRACTURE: None listed. MEDICATIONS: Calcium, vitamin D. MM/XR DEXA axial skeleton IMPRESSION: 1. DIAGNOSIS: Osteopenia based on the lowest T-score value of -1.9 in the lumbar spine applying World Health Organization criteria. 2. 10-YEAR FRACTURE RISK PREDICTION, FRAX: Major osteoporotic fracture (clinical spine, forearm, hip or shoulder) 11.2%. Hip fracture 2.4%. 3. Treatment Recommendations: NOF guidelines recommend consideration for treatment in postmenopausal women and men age 50 and older presenting with the following: -A hip or vertebral (clinical or morphometric) fracture. -T-score less than or equal to -2.5 at the femoral neck or spine after appropriate evaluation to exclude secondary causes. -Low bone mass at the hip or spine and a 10-year fracture probability by FRAX of greater than or equal to 3% for hip fracture or greater than or equal to 20% for major osteoporotic fracture based on the [place] adapted WHO algorithm. 4. Other Recommendations: All treatment decisions require clinical judgment and consideration of individual patient factors, including patient preferences, comorbidities, previous drug use, risk factors not captured in the FRAX model (e.g. frailty, falls, vitamin D deficiency, increased bone turnover, interval significant decline in bone density) and possible under or overestimation of fracture risk by FRAX. Additional medical evaluation for secondary cause of low bone mineral density may be appropriate. FUTURE SCAN RECOMMENDATION: People with diagnosed cases of osteoporosis or at high risk for fracture should have regular bone mineral density tests. For patients eligible for Medicare, routine testing is allowed once every 2 years. The testing frequency can be increased to one year for patients who have rapidly progressing disease, those who are receiving or discontinuing medical therapy to restore bone mass, or have additional risk factors.
== END 2023-03-09 08:40 | disposition home or self-care (01) ==
LOC: HO.MAMMO 08:39
PROVIDERS: PCP Internal Medicine; Visit Provider Internal Medicine
DX: Z13.820 Encounter for screening for osteoporosis (principal); Z78.0 Asymptomatic menopausal state; M81.0 Age-related osteoporosis without current pathological fracture
CPT/HCPCS: 77080

== ENCOUNTER 2023-03-10 15:15 | Outpatient (REF) | payer MEDICARE, SELFPAY ==
--- NOTE | ~2023-03-10 | MR_ITS ---
EXAMINATION: MR SHOULDER WITHOUT CONTRAST, RIGHT CLINICAL INFORMATION: Impingement syndrome. Patient reports pain. Patient reports prior surgery for rotator cuff impingement 2010 COMPARISON: Prior images of the x-ray from 08/29/2022 are not available for comparison, likely due to PACS issue. Correlation done with the report. TECHNIQUE: MRI of the shoulder without contrast was performed on a high-field scanner. FINDINGS: ROTATOR CUFF: Mild supraspinatus tendinosis. Mild bursal surface fraying anteriorly. Probable small 3 mm intrasubstance tear in the distal anterior fibers. Mild infraspinatus tendinosis. Teres minor and subscapularis tendons are intact.. Mild atrophy and fatty infiltration of the teres minor. BICEPS: Mild biceps tendinosis. CORACOACROMIAL ARCH: Probable prior acromioplasty. Widening of the acromioclavicular distance. Foci of susceptibility artifact present in this region. Degenerative signal in the labrum LABRUM/CAPSULE: Degenerative signal in the labrum. No displaced labral tear is seen. Inferior capsule is intact. GLENOHUMERAL JOINT/MARROW: Small inferior humeral head spurring. Patchy cartilage thinning in the humeral head, mild posterior glenoid cartilage thinning. Small effusion. There is intermediate low signal foci within the joint space, including the inferior joint space, which could reflect synovitis or debris/loose bodies. MR/MR shoulder RT wo con IMPRESSION: 1. Mild supraspinatus tendinosis. Mild bursal surface fraying anteriorly. Probable small 3 mm intrasubstance tear in the distal anterior fibers. 2. Mild infraspinatus tendinosis. 3. Mild biceps tendinosis. 4. Labral degeneration. No displaced labral tear is seen. 5. Mild glenohumeral joint arthritis. Small effusion. Intermediate low signal foci within the joint space, could reflect synovitis or debris/loose bodies. 6. Probable prior acromioplasty. Widening of the acromioclavicular distance. Correlate with surgical history.
== END 2023-03-10 15:16 | disposition home or self-care (01) ==
LOC: HO.MRI 15:15
PROVIDERS: Visit Provider Physician Assistant
DX: M75.41 Impingement syndrome of right shoulder (principal)
CPT/HCPCS: 73221

== ENCOUNTER 2023-03-23 10:05 | Outpatient (AMB) | payer MEDICARE, SELFPAY ==
--- NOTE | 2023-03-23 10:26 | A.OFFVIS_ITS ---
Intake Vital Signs 03/23/23 10:28 Height 5 ft 2 in Weight 192 lb BMI 35.1 Intake Visit Reasons: OV-B/L rotator cuff MRI review Intake Note: Lyudmila is a 73 year old Right hand dominant female who presnets today for an MRI review of her right shoulder. Allergies lisinopril Allergy (Intermediate, Verified 02/23/23 09:45) Cough latex [Latex] Allergy (Mild, Verified 02/23/23 09:45) RASH HPI OV-B/L rotator cuff MRI review HPI Details Lyudmila is a 73 year old woman who presents for an MRI review of her right shoulder. She has been seen for left shoulder tendinitis & right shoulder impingement. She complains of bilateral shoulder pain with daily activity, worse with overhead activity and at night. She found no improvement following PT and no relief from previous bilateral steroid injections by ORLIN Hussein on 11/03/22. She takes NSAIDs. [facility] Medical History Toe fracture, right Hypercholesterolemia Surgical History History of arthroscopy of left shoulder H/O wrist surgery History of arthroscopy of right shoulder History of cholecystectomy History of arthroscopy of left knee Family History Father FH: prostate cancer Bladder cancer Mother CVD (cardiovascular disease) Social History Housing: House Alcohol intake: never Patient Tobacco Use Status: Never used Tobacco e-Cigarette/Vaping Use: Never Used Second Hand Smoke Exposure: No service: No Current occupational status: retired Current occupation: Rt handed Cognitive needs: No Hearing needs: No Vision needs: Yes Review of Systems Const All systems reviewed & are unremarkable except as noted in HPI and below Physical Exam Vital Signs: BMI result Body Mass Index 35.1 Const General: no acute distress, alert and awake Orientation/consciousness: patient oriented x3 HEENT Head: Yes normocephalic and Yes atraumatic Eyes EOM: EOMs intact bilaterally Resp Effort & Inspection: normal respiratory effort and able to speak in complete sentences Cardio Jugular venous distension: no JVD Skin General skin exam: turgor normal Rashes: no rashes Neuro General: patient oriented x3 Extrem Other: +H/N - EC 30/90/130/L5 Psych Appearance: grossly normal Affect: normal affect Attitude: cooperative Results Reviewed Results Reviewed: 1. Mild supraspinatus tendinosis. Mild bursal surface fraying anteriorly. Probable small 3 mm intrasubstance tear in the distal anterior fibers. 2. Mild infraspinatus tendinosis. 3. Mild biceps tendinosis. 4. Labral degeneration. No displaced labral tear is seen. 5. Mild glenohumeral joint arthritis. Small effusion. Intermediate low signal foci within the joint space, could reflect synovitis or debris/loose bodies. 6. Probable prior acromioplasty. Widening of the acromioclavicular distance. Correlate with surgical history. Assessment & Plan Assessment & Plan (1) Right shoulder tendinitis: Code(s): M77.8 - Other enthesopathies, not elsewhere classified Plan: This is a 73 year old woman with right shoulder tendinitis. I discussed her diagnosis, MRI results, and treatment options. She is currently doing ok and no additional intervention warranted at this time. (2) Left shoulder tendonitis: Code(s): M77.8 - Other enthesopathies, not elsewhere classified Coding Level of Care Code Est Pt Level 3 (42007) Diagnoses Right shoulder tendinitis M77.8 Left shoulder tendonitis M77.8
[2023-03-23 10:28] VITALS: BMI 35.1
== END 2023-03-23 11:39 | disposition home or self-care (01) ==
PROVIDERS: PCP Internal Medicine; Visit Provider Orthopaedic Surgery
DX: M77.8 Other enthesopathies, not elsewhere classified (principal)
CPT/HCPCS: 99213

== ENCOUNTER → 2023-03-23 10:05 | Outpatient (BNVA) | payer MEDICARE, SELFPAY | PROVIDERS: PCP Internal Medicine; Visit Provider Orthopaedic Surgery | DX: M77.8 Other enthesopathies, not elsewhere classified (principal) | CPT/HCPCS: 99212 ==

== ENCOUNTER 2023-05-30 08:51 | Outpatient (AMB) | payer MEDICARE, SELFPAY ==
--- NOTE | 2023-05-30 09:08 | AM.OFFVISNUR ---
Intake Intake Visit Reasons: B-12 Shot Allergies lisinopril Allergy (Intermediate, Verified 02/23/23 09:45) Cough latex [Latex] Allergy (Mild, Verified 02/23/23 09:45) RASH Office Meds cyanocobalamin (vitamin B-12) 1,000 mcg/mL injection solution Performing Provider: Jackeline Oakley MD Performing Location: [facility] Administered by: Courtney Minor RN on 05/30/23 09:08 Dose Route Admin Location Dispensed Lot Number Expiration Date [facility] Storage Battery Tester 1,000 mcg IM left deltoid 1 mL [id number] 11/24/24 97616-298-94 [employer] Coding Assessment & Plan Assessment & Plan Orders: Orders AMB Vitamin B12 Injection Patient Supplied Today D51.9 - Vitamin B12 deficiency anemia, unspecified
== END 2023-05-30 09:09 | disposition home or self-care (01) ==
PROVIDERS: PCP Internal Medicine; Visit Provider Internal Medicine
DX: D51.9 Vitamin B12 deficiency anemia, unspecified (principal)
CPT/HCPCS: 96372; J3420

== ENCOUNTER 2023-06-18 14:52 | Outpatient (REF) | payer MEDICARE, SELFPAY | END 2023-06-18 14:53 | disposition home or self-care (01) | LOC: HO.MAMMO 14:52 | PROVIDERS: PCP Internal Medicine; Visit Provider Internal Medicine | DX: Z12.31 Encounter for screening mammogram for malignant neoplasm of breast (principal) | CPT/HCPCS: 77063; 77067 ==

== ENCOUNTER → 2023-06-18 15:00 | Outpatient (BNV) | payer MEDICARE, SELFPAY | PROVIDERS: PCP Internal Medicine; Visit Provider Radiology Diagnostic Radiology | DX: Z12.31 Encounter for screening mammogram for malignant neoplasm of breast (principal) | CPT/HCPCS: 77063; 77067 ==

== ENCOUNTER 2023-08-09 10:16 | Outpatient (AMB) | payer MEDICARE, SELFPAY ==
--- NOTE | 2023-08-09 10:24 | AM.OFFVISNUR ---
Intake Intake Visit Reasons: B-12 shot Allergies lisinopril Allergy (Intermediate, Verified 02/23/23 09:45) Cough latex [Latex] Allergy (Mild, Verified 02/23/23 09:45) RASH Office Meds cyanocobalamin (vitamin B-12) 1,000 mcg/mL injection solution Performing Provider: Jackeline Oakley MD Performing Location: [facility] Administered by: Mercedes Hurtado RN on 08/09/23 10:24 Dose Route Admin Location Dispensed Lot Number Expiration Date [facility] Biology Professor 1,000 mcg IM 1 mL [id number] 04/26/24 0063-6312-54 [facility] Coding Assessment & Plan Assessment & Plan Orders: Orders AMB Vitamin B12 Injection Patient Supplied Today E53.8 - Deficiency of other specified B group vitamins
== END 2023-08-09 10:36 | disposition home or self-care (01) ==
PROVIDERS: PCP Internal Medicine; Visit Provider Internal Medicine
DX: E53.8 Deficiency of other specified B group vitamins (principal)
CPT/HCPCS: 96372; J3420

== ENCOUNTER 2023-08-27 10:05 | Outpatient (REF) | payer MEDICARE, SELFPAY ==
[2023-08-27 10:22] LABS: MANUAL DIFF FLAG NO
[2023-08-27 11:28] LABS: Basophils Percent Auto 0.6 % (0-2); Eosinophils Absolute Auto 0.1 X10*3/uL (0.0-0.4); Eosinophils Percent Auto 1.7 % (0-4); Hematocrit 40.4 % (37.0-47.0); Hemoglobin 13.2 g/dl (12.0-16.0); Imm Gran Abs Auto 0.01 X10*3/uL (0.00-0.03); Imm Gran Pct Auto 0.3 % (0.0-0.4); Lymphocytes Absolute Auto 1.1 X10*3/uL (1.2-4.9); Lymphocytes Percent Auto 32.7 % (20-40); Mean Corpuscular HGB Conc 32.7 g/dl (31.0-35.0); Mean Corpuscular Hemoglobin 31.4 pg (27.0-33.0); Mean Platelet Volume 10.6 fL (9.4-12.3); Monocytes Absolute Auto 0.3 X10*3/uL (0.1-1.2); Monocytes Percent Auto 8.6 % (2-11); Neutrophils Percent Auto 56.1 % (45-73); Platelet Count 233 X10*3/uL (160-400); Red Blood Count 4.21 X10*6/uL (4.20-5.50); Red Cell Distribution Width 13.2 % (11.0-16.0); White Blood Count 3.5 X10*3/uL (4.8-10.8)
[2023-08-27 11:38] LABS: Estimated Average Glucose 108 mg/dL; Hemoglobin A1c % 5.4 % (<6.0)
[2023-08-27 12:08] LABS: Alanine Aminotransferase 11 U/L (0-31); Albumin Level 4.1 g/dL (3.5-5.0); Alkaline Phosphatase 57 U/L (39-117); Anion Gap 12 (12-20); Aspartate Amino Transferase 14 U/L (5-31); Bilirubin Total 0.5 mg/dL (0.0-1.0); Blood Urea Nitrogen 20 mg/dL (9-16); Calcium 9.1 mg/dL (8.4-10.2); Carbon Dioxide 28 mmol/L (22-29); Chloride 109 mmol/L (96-108); Cholesterol 200 mg/dL (<200); Estimated Glomerular Filt Rate 53; Glucose Random 92 mg/dL (60-115); HDL Cholesterol 47 mg/dL (>40); LDL Cholesterol Calculated 139 mg/dL (<100); Sodium 145 mmol/L (135-145); Total Protein 6.5 g/dL (6.5-8.0); Triglycerides 74 mg/dL (<150)
[2023-08-27 12:17] LABS: Free T4 (Free Thyroxine) 0.98 ng/dL (0.71-1.85); Thyroid Stimulating Hormone 1.88 uIU/mL (0.32-4.0); Vitamin D 25-OH Total 53.4 ng/mL (>30)
[2023-08-27 12:31] LABS: Folate 7.4 ng/mL (> or = 4.0); Vitamin B12 461 pg/mL (200-900)
== END 2023-08-27 10:06 | disposition home or self-care (01) ==
LOC: HO.LAB 10:05
PROVIDERS: PCP Internal Medicine; Visit Provider Internal Medicine
DX: I10 Essential (primary) hypertension (principal); E78.00 Pure hypercholesterolemia, unspecified; R73.02 Impaired glucose tolerance (oral)
CPT/HCPCS: 36415; 80053; 80061; 82306; 82607; 82746; 83036; 84439; 84443; 85025

== ENCOUNTER 2023-08-29 09:02 | Outpatient (AMB) | payer MEDICARE, SELFPAY ==
[2023-08-29 09:09] VITALS: BP 116/68; PULSE 69; O2SAT 96; BMI 23.1
--- NOTE | 2023-08-29 09:09 | MHC.PC.OV ---
Vital Signs 08/29/23 09:09 Height 5 ft 2 in Weight 126 lb 0.6 oz BMI 23.1 BP 116/68 Blood Pressure Location Lt brachial Position Sitting Pulse 69 Pulse Source Pulse Oximeter Pulse Oximetry (%) 96 Oxygen Delivery Method Room Air Intake Visit Reasons: Annual Exam Intake Note: Patient is here today for a physical. [employer] Required: No Allergies lisinopril Allergy (Intermediate, Verified 08/29/23 09:09) Cough latex [Latex] Allergy (Mild, Verified 08/29/23 09:09) RASH Medication List - Last Reconciled 08/29/23 by Jackeline Oakley MD calcium carbonate-vitamin D3 600 mg-5 mcg (200 unit) (Calcium 600 + D(3)) caps PO cetirizine (Zyrtec) 10 mg PO DAILY PRN clobetasol 0.05% 1 appl topical BID 30 days cyanocobalamin (vitamin B-12) once Q 3 months 3 months fluticasone propionate 50 mcg/actuation (Flonase Allergy Relief) 2 sprays intranasal DAILY Tobacco use date assessed: 08/29/23 Fall risk assessment: No Falls in past year Last assessed Fall Risk: 08/29/23 Dental Screening Dental Screen Date: 02/23/23 Did you have a dental visit in the last 12 months?: Yes Did you have a dental problem in the last 6 months where you did not have access to dental care?: No Was dental information given to patient?: Patient has dentist HPI Annual Exam HPI Details 73-year-old female with hypertension impaired glucose tolerance hypercholesterolemia and osteoporosis coming in for physical exam last seen in January 2023. Patient's colonoscopy is due this year mammograms up-to-date bone density is up-to-date. Last time seen having bilateral shoulder pain diagnosis of left shoulder tendonitis with right shoulder impingement has had injections in the past but with no help. 2 weeks ago vomiting and nausea, soft stools, states had a rash after for 3 days [facility] Medical History (Updated 08/29/23 @ 09:27 by Jackeline Oakley MD) Bilateral arm pain Acute infection of left pinna Ulnar neuropathy Bilateral shoulder pain Nausea Cellulitis of hand, right Osteoporosis Right foot pain Seborrhea capitis Localized swelling of both lower legs Toe fracture, right Hypercholesterolemia Surgical History History of arthroscopy of left shoulder H/O wrist surgery History of arthroscopy of right shoulder History of cholecystectomy History of arthroscopy of left knee Family History Father FH: prostate cancer Bladder cancer Mother CVD (cardiovascular disease) Social History Housing: House Alcohol intake: never Patient Tobacco Use Status: Never used Tobacco e-Cigarette/Vaping Use: Never Used Second Hand Smoke Exposure: No service: No Current occupational status: retired Current occupation: Rt handed Cognitive needs: No Hearing needs: No Vision needs: Yes Questionnaire PHQ-9 Over the last 2 weeks, how often have you been bothered by any of the following problems? 1. Little interest or pleasure in doing things: not at all 2. Feeling down, depressed, or hopeless: not at all 3. Trouble falling or staying asleep, or sleeping too much: not at all 4. Feeling tired or having little energy: not at all 5. Poor appetite or overeating: not at all 6. Feeling bad about yourself - or that you are a failure or have let yourself or your family down: not at all 7. Trouble concentrating on things, such as reading the newspaper or watching television: not at all 8. Moving or speaking so slowly that other people could have noticed. Or the opposite - being so fidgety or restless that you have been moving around a lot more than usual: not at all 9. Thoughts that you would be better off or of hurting yourself in some way: not at all Total score: 0 Depression Screening Interpretation: Negative Depression Screening Done: Yes 10696 - PHQ-9 Billing: Yes Source: Developed by Drs. Sawyer Childs, Selena Weathers, Claus Jefferson and colleagues, with an educational naivn from [email or web address]. Thrive Questionnaire Date Thrive assessed: 08/29/23 I am a: Patient What is your living situation today?: I have a steady place to live Within the past 12 months, did the food you bought not last and you didn't have the money to get more?: Never true Within the past 12 months, did you worry whether your food would run out before you got money to buy more?: Never true Do you have trouble paying for medicines?: No Do you have trouble getting transportation to medical appointments?: No Do you have trouble paying your heating and electricity bill?: No Do you have trouble taking care of your child, family member or friend?: No Do you have trouble with day-to-day activities such as bathing, preparing meals, shopping, managing finances, etc.?: No Are you currently unemployed and looking for a job?: No Are you interested in more education?: No Please select the resources that you would like help with: None Currently or been in a relationship where the following occur: no concerns reported THRIVE Score: 0 AUDIT C Alcohol Use Questionnaire (AUDIT-C) 1. How often do you have a drink containing alcohol?: Never 3. How often do you have six or more drinks on one occasion?: Never Total Score: 0 JINNY-7 AMB Questionnaire JINNY-7 Date JINNY - 7 assessed: 08/29/23 Feeling nervous, anxious, or on edge: 0 = Not at all Not being able to stop or control worryin = Not at all Worrying too much about different things: 0 = Not at all Trouble relaxin = Not at all Being so restless that it is hard to sit still: 0 = Not at all Becoming easily annoyed or irritable: 0 = Not at all Feeling afraid as if something awful might happen: 0 = Not at all Total JINNY-7 score (0-4 normal; 5-9 mild; 10-14 moderate; 15-21 severe): 0 Source: Developed by Drs. Sawyer Childs, Selena Weathers, Claus Jefferson and colleagues, with an educational navin from [email or web address]. JINNY-7 Assessment Billing JINNY-7 Assessment Tool: JINNY-7 Assessment 75776 Review of Systems Const Denies poor appetite and Denies weakness Eyes Denies no additional complaints ENT Reports Normal hearing present, Denies dizziness, Denies nasal congestion, Denies tinnitus and Denies sore throat Card Denies chest pain, Denies syncope, Denies rapid heart rate and Denies dyspnea Resp Denies cough and Denies dyspnea GI Denies change in stool character, Reports constipation, Denies diarrhea, Denies nausea and Denies vomiting Denies urinary frequency, Denies difficulty voiding and Denies dysuria Neuro Reports Normal hearing present, Denies confusion, Denies dizziness, Denies syncope and Denies weakness Psych Denies confusion Physical exam (Primary Care) Vital Signs: Last Vital Signs Pulse 69 08/29/23 09:09 BP 116/68 08/29/23 09:09 Pulse Ox 96 08/29/23 09:09 Oxygen Delivery Method Room Air 08/29/23 09:09 BMI result Body Mass Index 23.1 Tobacco/Smoking Status: Tobacco use Status Tobacco use date assessed 08/29/23 08/29/23 09:14 Patient Tobacco Use Status Never used Tobacco 08/29/23 09:14 e-Cigarette/Vaping Use Never Used 08/29/23 09:14 PHQ-9: PHQ-9 Score PHQ-9: Total score 0 08/29/23 09:14 Depression Screening Interpretation: Negative Thrive Assessment: Date of Thrive Assessment Date Thrive assessed 08/29/23 08/29/23 09:14 Currently or been in a relationship where the following occur: no concerns reported Const General: No confusion Orientation/consciousness: No confusion HENMT Head: Yes normocephalic Ears: external ears normal and TM's normal bilaterally Face and sinus: Yes normal facial exam Mouth: moist mucous membranes Throat: Yes tonsils normal Eyes Conjunctivae: conjunctivae normal Pupils: Equal, round and reactive pupils present and Pupil accommodation reflex normal Direct Ophthalmoscopy: normal light reflex Neck Neck: No lymphadenopathy Thyroid: Thyroid normal Chest Chest palpation & inspection: normal inspection of the chest Resp Effort & Inspection: normal respiratory effort and no audible wheezes Auscultation: clear to auscultation bilaterally, no crackles, no wheezes and lung sounds not diminished Cardio Rate: regular rate Rhythm: regular rhythm Peripheral pulses: radial pulses present and dorsalis pedis present GI Palpation (GI): no masses Auscultation: normal bowel sounds and normoactive bowel sounds Rectal Exam - Female: deferred Skin General skin exam: no rashes or lesions noted Rashes: no rashes Neuro General: No confusion Cranial nerves: Yes Equal, round and reactive pupils present and Yes Normal hearing present Cognition (Neuro): normal cognition Gait exam (Neuro): Normal gait present Motor exam (neuro): 5/5 motor strength present throughout Deep tendon reflexes (DTR's): Right brachioradialis reflex intensity grade: 2+, Left brachioradialis reflex intensity grade: 2+, Right patellar reflex intensity grade: 2+ and Left patellar reflex intensity grade: 2+ Extrem General: No edema Assessment and Plan Assessment & Plan (1) Annual physical exam: Code(s): Z00.00 - Encounter for general adult medical examination without abnormal findings (2) Hypercholesterolemia: Code(s): E78.00 - Pure hypercholesterolemia, unspecified Plan: Avoid fried foods, chicken skin, eggs, butter margarine, pastries and meat. Be it pork or beef they have a lot of cholesterol LDL goal of less than 130 and triglyceride of less than 150. (3) Osteoporosis: Comment: November 2020, February 2023 Code(s): M81.0 - Age-related osteoporosis without current pathological fracture Plan: Up-to-date with bone density discussed about calcium and vitamin-D (4) Impingement syndrome of both shoulders: Code(s): M75.41 - Impingement syndrome of right shoulder; M75.42 - Impingement syndrome of left shoulder Plan: Presently stable and has seen Orthopedics. (5) Hypertension: Code(s): I10 - Essential (primary) hypertension Plan: Continue with blood pressure medication. Decrease salt intake and exercise stable with no medication (6) Colon cancer screening: Code(s): Z12.11 - Encounter for screening for malignant neoplasm of colon Orders: Orders Lipid Panel 364 Days E78.00 - Pure hypercholesterolemia, unspecified, R73.02 - Impaired glucose tolerance (oral) Thyroid Stimulating Hormone 364 Days R73.02 - Impaired glucose tolerance (oral) UA CC w/rflx Micro + Cult 364 Days R30.0 - Dysuria, R73.02 - Impaired glucose tolerance (oral) Comprehensive Met. Panel 364 Days R73.02 - Impaired glucose tolerance (oral) Complete Blood Count Auto Diff 364 Days R73.02 - Impaired glucose tolerance (oral) Hemoglobin A1c 364 Days R73.02 - Impaired glucose tolerance (oral) Vitamin B12 and Folate 364 Days R73.02 - Impaired glucose tolerance (oral) Vitamin D 25-OH Total 364 Days R73.02 - Impaired glucose tolerance (oral) Erythrocyte Sedimentation Rate 364 Days R73.02 - Impaired glucose tolerance (oral) Magnesium 364 Days R73.02 - Impaired glucose tolerance (oral) C Reactive Protein 364 Days R73.02 - Impaired glucose tolerance (oral) Referrals Gastroenterology Referral Z12.11 - Encounter for screening for malignant neoplasm of colon Coding Level of Care Code Est Pt Prev Care >65y(14126) Diagnoses Annual physical exam Z00.00 Hypercholesterolemia E78.00 Osteoporosis M81.0 Impingement syndrome of both shoulders M75.41; M75.42 Hypertension I10 Colon cancer screening Z12.11 Additional Codes JINNY-7 Assessment Billing - JINNY-7 Assessment Tool: JINNY-7 Assessment 14854 ([id number])
== END 2023-08-29 09:40 | disposition home or self-care (01) ==
PROVIDERS: Visit Provider Internal Medicine
DX: Z00.00 Encounter for general adult medical examination without abnormal findings (principal); E78.00 Pure hypercholesterolemia, unspecified; M81.0 Age-related osteoporosis without current pathological fracture; M75.41 Impingement syndrome of right shoulder; M75.42 Impingement syndrome of left shoulder; I10 Essential (primary) hypertension; Z12.11 Encounter for screening for malignant neoplasm of colon
CPT/HCPCS: 99397

== ENCOUNTER 2023-10-24 11:14 | Outpatient (AMB) | payer MEDICARE, SELFPAY ==
--- NOTE | 2023-10-24 11:27 | AM.OFFWIN_ITS ---
Intake Vital Signs 10/24/23 11:34 Height 5 ft 2 in Weight 130 lb BMI 23.8 BP 126/64 Blood Pressure Location Rt brachial Position Sitting Respiration 16 Pulse 86 Pulse Source Pulse Oximeter Temp 98.4 F Temp Source Oral Pulse Oximetry (%) 96 Oxygen Delivery Method Room Air Intake Visit Reasons: ep/ sore throat past four days Intake Note: Sore throat, runny nose, cough Patient Tobacco Use Status: Never used Tobacco Allergies lisinopril Allergy (Intermediate, Verified 10/24/23 12:03) Cough latex [Latex] Allergy (Mild, Verified 10/24/23 12:03) RASH Medication List - Last Reconciled 10/24/23 by Kay Ibarra, RN [facility] cetirizine (Zyrtec) 10 mg PO DAILY PRN cyanocobalamin (vitamin B-12) once Q 3 months 3 months fluticasone propionate 50 mcg/actuation (Flonase Allergy Relief) 2 sprays intranasal DAILY Do you need a note to return to daycare/school/sports/work: No HPI HPI Comments History of Present Illness Details Here today with complaints of a sore throat that started on Sunday night. Reports that she has painful swallowing, runny nose, mild cough. Denies fever, chills, abdominal pain. Exposed to with similar symptoms. Uses loss changes and salt water rinses without relief. [facility] Medical History (Updated 08/29/23 @ 09:27 by Jackeline Oakley MD) Bilateral arm pain Acute infection of left pinna Ulnar neuropathy Bilateral shoulder pain Nausea Cellulitis of hand, right Osteoporosis Right foot pain Seborrhea capitis Localized swelling of both lower legs Toe fracture, right Hypercholesterolemia Surgical History History of arthroscopy of left shoulder H/O wrist surgery History of arthroscopy of right shoulder History of cholecystectomy History of arthroscopy of left knee Family History Father FH: prostate cancer Bladder cancer Mother CVD (cardiovascular disease) Social History Housing: House Alcohol intake: never Patient Tobacco Use Status: Never used Tobacco e-Cigarette/Vaping Use: Never Used Second Hand Smoke Exposure: No service: No Current occupational status: retired Current occupation: Rt handed Cognitive needs: No Hearing needs: No Vision needs: Yes Review of Systems Const All systems reviewed & are unremarkable except as noted in HPI and below Physical Exam Vital Signs: Last Vital Signs Temp 98.4 F 10/24/23 11:34 Pulse 86 10/24/23 11:34 Resp 16 10/24/23 11:34 BP 126/64 10/24/23 11:34 Pulse Ox 96 10/24/23 11:34 Oxygen Delivery Method Room Air 10/24/23 11:34 BMI result Body Mass Index 23.8 Const Other: Awake alert NAD, mildly ill-appearing Sclera and conjunctiva clear bilat Nares patent, turbinates within normal limits, no sinus tenderness with palpation bilat TM intact effusions bilat without erythema MMM, pharynx diffuse erythema, uvula midline, bilat anterior and posterior cervical adenopathy RRR LS CTAB Results AMB Rapid Strep AMB Rapid Strep Negative Last Edit by Loren Philip CMA on 10/24/23 11:3 9 Results Reviewed Results Reviewed: Laboratory Last Values Strep Scn Rapid Clinic Negative 10/24/23 11:37 Assessment & Plan Assessment & Plan (1) Sore throat: Code(s): J02.9 - Acute pharyngitis, unspecified Plan: . (2) Strep pharyngitis: Code(s): J02.0 - Streptococcal pharyngitis Plan: . Orders: Orders AMB Rapid Strep Screen Today Raisa Ross PA-C J02.9 - Acute pharyngitis, unspecified Medications: New amoxicillin-pot clavulanate 875-125 mg 1 tab PO BID 14 tabs 0RF 7 days Kay Ibarra [facility] Patient Instructions: Despite the negative strep test in the office today. I will treat her for strep pharyngitis given the exam. Advised that if she has no improvement in her symptoms or worsening of her symptoms she returned to the office for further evaluation and treatment. Good hand hygiene and respiratory etiquette can reduce the spread of all types of group A strep infection. Hand hygiene is especially important after coughing and sneezing and before preparing foods or eating. Good respiratory etiquette involves covering your cough or sneeze. Do not share food or drinks. Treating an infected person with an antibiotic for 12 hours or longer limits their ability to transmit the bacteria. Thus, people with group A strep pharyngitis should stay home from work, school, or daycare until: They are afebrile AND At least 12?24 hours after starting appropriate antibiotic therapy I also recommend changing toothbrush and washing bed linen in hot water 24 hours after starting antibiotics Coding Level of Care Code Est Pt Level 3 (66256) Diagnoses Sore throat J02.9 Strep pharyngitis J02.0
[2023-10-24 11:34] VITALS: BP 126/64; PULSE 86; RESP 16; TEMP 36.9; O2SAT 96; BMI 23.8
== END 2023-10-24 12:14 | disposition home or self-care (01) ==
PROVIDERS: PCP Internal Medicine; Visit Provider Nurse Practitioner Family
DX: J02.9 Acute pharyngitis, unspecified (principal); J02.0 Streptococcal pharyngitis
CPT/HCPCS: 87880; 99213

== ENCOUNTER 2023-12-24 12:15 | Outpatient (AMB) | payer MEDICARE, SELFPAY ==
--- NOTE | 2023-12-24 12:32 | AM.OFFWIN_ITS ---
Intake Vital Signs 12/24/23 12:33 Height 5 ft 2 in Weight 130 lb BMI 23.8 BP 130/80 Blood Pressure Location Rt brachial Position Sitting Pulse 87 Pulse Source Pulse Oximeter Pulse Oximetry (%) 99 Oxygen Delivery Method Room Air Intake Visit Reasons: EST/ red bump on chest/ cellulitis? Intake Note: Patient is here to have a small, red, raised bump center of her upper chest x10 days. Patient reports she had 3 left over amoxicillin and took those which seemed to slightly make a difference. Patient states the area is tender and she believes it to be cellulitus, Patient Tobacco Use Status: Never used Tobacco Allergies lisinopril Allergy (Intermediate, Verified 12/24/23 12:39) Cough latex [Latex] Allergy (Mild, Verified 12/24/23 12:39) RASH Do you need a note to return to daycare/school/sports/work: No HPI HPI Comments History of Present Illness Details This is a 73-year-old female with a past medical history of hyper lipidemia, impaired fasting glucose and hypertension who presented as a walk-in for evaluation of a possible skin infection. Ten days ago she noticed a few red, tender, swollen bumps on her chest. She applied Jergens. Some of the bumps went away, but she still had 1. She suspected cellulitis. She had some left over amoxicillin at home. She took a few doses of this. Since then it looks less red, but it is ammonia distiller and red. No discharge. No fevers or chills. No tick bites or other insect bites to her knowledge. ROS Remainder of ROS noncontributory Physical exam: Neck: Supple, Full range of motion. No lymphadenopathy. Respiratory: Clear to auscultation. Cardiovascular: S1 S2 regular. No murmurs. Skin: Mildly erythematous, tender, slightly warm and indurated 1 cm spot on the center of her chest, no fluctuance or discharge [facility] Medical History (Updated 08/29/23 @ 09:27 by Jackeline Oakley MD) Bilateral arm pain Acute infection of left pinna Ulnar neuropathy Bilateral shoulder pain Nausea Cellulitis of hand, right Osteoporosis Right foot pain Seborrhea capitis Localized swelling of both lower legs Toe fracture, right Hypercholesterolemia Surgical History History of arthroscopy of left shoulder H/O wrist surgery History of arthroscopy of right shoulder History of cholecystectomy History of arthroscopy of left knee Family History Father FH: prostate cancer Bladder cancer Mother CVD (cardiovascular disease) Social History Housing: House Alcohol intake: never Patient Tobacco Use Status: Never used Tobacco e-Cigarette/Vaping Use: Never Used Second Hand Smoke Exposure: No service: No Current occupational status: retired Current occupation: Rt handed Cognitive needs: No Hearing needs: No Vision needs: Yes Physical Exam Vital Signs: Last Vital Signs Pulse 87 12/24/23 12:33 BP 130/80 12/24/23 12:33 Pulse Ox 99 12/24/23 12:33 Oxygen Delivery Method Room Air 12/24/23 12:33 BMI result Body Mass Index 23.8 Assessment & Plan Assessment & Plan (1) Cellulitis: Code(s): L03.90 - Cellulitis, unspecified Qualifiers: Site of cellulitis of trunk: chest wall Plan Apply warm compresses. Keflex 500 mg t.i.d. with food x7 days. Have probiotics and yogurt to minimize GI side effects. Warning signs warranting re-evaluation reviewed. Recommend follow up with PCP office for recheck in a few days. Medications: New cephalexin 500 mg PO TID 7 days 21 caps 0RF Coding Level of Care Code Est Pt Level 3 (99816) Diagnoses Cellulitis L03.90 Site of cellulitis of trunk: chest wall
[2023-12-24 12:33] VITALS: BP 130/80; PULSE 87; O2SAT 99; BMI 23.8
== END 2023-12-24 12:55 | disposition home or self-care (01) ==
PROVIDERS: PCP Internal Medicine; Visit Provider Physician Assistant Medical
DX: L03.90 Cellulitis, unspecified (principal)
CPT/HCPCS: 99214

== ENCOUNTER 2024-01-22 09:54 | Day surgery (SDC) | payer MEDICARE, SELFPAY ==
[2024-01-18 14:22] VITALS: BMI 23.8
[2024-01-22 10:51] VITALS: BP 156/89; PULSE 73; RESP 16; TEMP 36.6; O2SAT 99; BMI 23.9
[2024-01-22] MEDS: Lactated Ringers 1,000 ML 80 ML IVCONT (11:02)
--- NOTE | 2024-01-22 11:17 | HO.ANESPROP2 ---
HPI - Anesthesia Eval Consult details Narrative: [facility] Active Problems Active Problems: All Active Problems Colon cancer screening (Acute) Right shoulder tendinitis (Acute) Left shoulder tendonitis (Acute) Hypertension (Acute) Dizziness (Acute) Impaired glucose tolerance (Acute) Impingement syndrome of both shoulders (Acute) Rotator cuff impingement syndrome of right shoulder (Acute) Breast cancer screening by mammogram (Acute) Vitamin B 12 deficiency (Acute) Annual physical exam (Acute) Varicose veins of right lower extremity with inflammation (Acute) Hypercholesterolemia (Acute) Past Medical History Medical History Osteopenia GERD (gastroesophageal reflux disease) HTN (hypertension) Ulnar neuropathy Osteoporosis Toe fracture, right Hypercholesterolemia Family History Family History Father FH: prostate cancer Bladder cancer Mother CVD (cardiovascular disease) Family history of problems with anesthesia: No Surgical History Surgical History H/O colonoscopy History of arthroscopy of left shoulder H/O wrist surgery History of arthroscopy of right shoulder History of cholecystectomy History of arthroscopy of left knee History of Problems with Anesthesia: No Social History Social History Housing: House Are you a primary professional healthcare representative to a significant other at home: No Do you presently have visiting nurse or other home services: No Alcohol intake: never Patient Tobacco Use Status: Never used Tobacco e-Cigarette/Vaping Use: Never Used Second Hand Smoke Exposure: No Have you been hit, kicked, punched, or otherwise hurt by someone within the past year? If so, by whom?: No Are you DNR?: No Advance Directives: No Advance Directives Information Provided: Yes Recently lost weight without trying: No service: No Current occupational status: retired Current occupation: Rt handed Cognitive needs: No Hearing needs: No Vision needs: Yes Meds Allergies Allergy/AdvReac Type Severity Reaction Status Date / Time lisinopril Allergy Intermediate Cough Verified 12/24/23 12:39 latex [Latex] Allergy Mild RASH Verified 12/24/23 12:39 Active Medications: Current Medications Lactated Ringer's (Lr) 1,000 mls @ 80 mls/hr IVCONT .[id number] MC Last Admin: 01/22/24 11:02 Dose: 80 mls/hr Home Medications ?Medication ?Instructions ?Recorded ?Confirmed ?Last Taken ?Type fluticasone propionate 50 2 spray intranasal DAILY 03/15/20 01/18/24 Unknown History mcg/actuation nasal spray,suspension (Flonase Allergy Relief) loratadine 10 mg tablet 10 mg PO DAILY 01/18/24 01/18/24 Unknown History Exam Height,Weight and Vital Signs: Height 5 ft 2 in Weight 59.239 kg Last Vital Signs Temp 97.9 F 01/22/24 10:51 Pulse 73 01/22/24 10:51 Resp 16 01/22/24 10:51 BP 156/89 H 01/22/24 10:51 Pulse Ox 99 01/22/24 10:51 O2 Del Method Room Air 01/22/24 10:51 Airway Mallampati Class: II TM Dist: >3cm Neck ROM: Limited Heart: rrr Lungs: cta Assessment and Plan Assessment Anesthesia Assessment: Anesthesia Plan Discussed Final Anesthetic Review Family History of Problems with Anesthesia: No History of Problems with Anesthesia: No NPO: Yes ASA Class: II Final Preanesthetic Review: No Changes in Pt Med Stat, Meds/Allgs Chart Reviewed, Consent Obtained/Reviewed and Anes Risks/Benef Reviewed Patient Risk: Low Procedure Risk: Low Anesthetic Plan Anesthetic Plan: MAC: Disposition: Standard PACU
--- NOTE | 2024-01-22 12:42 | MHC.SHP ---
Pre-Procedural Eval Section A - 24 Hr Update-Section A only Date of Service: 01/22/24 Section B - Complete if H&P > 30 days Chief Complaint: Encounter for screening for malignant neoplasm of Details of Present Illness: see H&P no changes Relevant Family History (Specify if Yes): No Relevant Social History: None Present Medications: see Short Stay Collaborative assessment Medical History: No relevant PMH History of Previous Operations: No relevant previous surgery Allergies: Allergies Allergy/AdvReac Type Severity Reaction Status Date / Time lisinopril Allergy Intermediate Cough Verified 12/24/23 12:39 latex [Latex] Allergy Mild RASH Verified 12/24/23 12:39 Review of Systems Sugical H&P ROS: Negative: Constitution, Cardiovascular, Respiratory, Neurological, Psychiatric, Hem-Onc, Allergic/Immunologic, Gastrointestinal, Genitourinary, Musculoskeletal, Integumentary, Endocrine and Eyes/Ears/Nose/Throat Exam Surgical H&P Exam: Normal: HEENT, Normal: Heart, Normal: Lungs, Normal: Extremities, Normal: Abdomen, Normal: Skin and Normal: Neurological Plan Diagnosis/Plan: Unchanged I have reviewed the history and physical and performed a pertinent physical examination on my patient. No changes have occurred unless specified. Time Spent With Patient Time: Total time managing care of this patient today ____ minutes.
[2024-01-22 13:33] VITALS: BP 90/47; PULSE 70; RESP 12; TEMP 36.1; O2SAT 97
[2024-01-22 13:48] VITALS: BP 108/64; PULSE 70; RESP 16; O2SAT 99
[2024-01-22 14:03] VITALS: BP 116/77; PULSE 70; RESP 16; O2SAT 99
--- NOTE | 2024-01-22 14:36 | OP_ITS ---
DATE OF SERVICE: 01/22/2024 SURGEON: Neptali Rosado MD INDICATIONS: Colon cancer screening. PREOPERATIVE DIAGNOSIS: POSTOPERATIVE DIAGNOSIS: PROCEDURE PERFORMED: Colonoscopy to the terminal ileum. ESTIMATED BLOOD LOSS: COMPLICATIONS: ANESTHESIA: Monitored anesthesia care. ASSISTANTS: SPECIMENS: DESCRIPTION OF PROCEDURE: A history and physical was performed. The risks and benefits of the procedure were explained to the patient and informed consent was obtained. The patient was placed in the left lateral decubitus position. A digital rectal exam was performed and was found to be normal. The Olympus pediatric video colonoscope was introduced into the rectum and advanced to the cecum. The cecum was identified by transillumination, palpation, and identification of ileocecal valve. Examination was performed and the scope was removed. She tolerated the procedure well and was returned to recovery area in stable condition. FINDINGS: The terminal ileum was normal. The visualized colonic mucosa was normal. The quality of the prep was good. No polyps were identified. There was mild sigmoid diverticulosis. Retroflexed examination was normal. IMPRESSION: Normal colonoscopy. RECOMMENDATIONS: 1. Follow up as needed. 2. Repeat colonoscopy is recommended in 10 years for average-risk individuals. This is optional based on age. MD JIMENA De Anda/NINO / [id number]
== END 2024-01-22 14:41 | disposition home or self-care (01) ==
PROVIDERS: PCP Internal Medicine; Visit Provider Internal Medicine Gastroenterology
PROC: 0DJD8ZZ Inspection of Lower Intestinal Tract, Via Natural or Artificial Opening Endoscopic (ICD-10-PCS; CPT 45378; principal; 2024-01-22 11:40)
DX: Z12.11 Encounter for screening for malignant neoplasm of colon (principal); K57.30 Diverticulosis of large intestine without perforation or abscess without bleeding; K59.00 Constipation, unspecified; K21.9 Gastro-esophageal reflux disease without esophagitis; M85.80 Other specified disorders of bone density and structure, unspecified site; Z90.49 Acquired absence of other specified parts of digestive tract; Z79.899 Other long term (current) drug therapy
CPT/HCPCS: G0121; J2704

== ENCOUNTER 2024-08-25 09:53 | Outpatient (REF) | payer MEDICARE, SELFPAY ==
[2024-08-25 10:11] LABS: MANUAL DIFF FLAG NO
[2024-08-25 10:48] LABS: Basophils Percent Auto 0.3 % (0-2); Eosinophils Absolute Auto 0.1 X10*3/uL (0.0-0.4); Hematocrit 39.8 % (37.0-47.0); Imm Gran Abs Auto 0.01 X10*3/uL (0.00-0.03); Imm Gran Pct Auto 0.3 % (0.0-0.4); Lymphocytes Percent Auto 31.9 % (20-40); Mean Corpuscular HGB Conc 32.7 g/dl (31.0-35.0); Mean Corpuscular Hemoglobin 31.4 pg (27.0-33.0); Mean Corpuscular Volume 96.1 fL (80.0-98.0); Mean Platelet Volume 10.3 fL (9.4-12.3); Monocytes Absolute Auto 0.3 X10*3/uL (0.1-1.2); Monocytes Percent Auto 8.9 % (2-11); Neutrophils Absolute Auto 1.7 x10*3/uL (2.0-8.3); Neutrophils Percent Auto 56.6 % (45-73); Platelet Count 198 X10*3/uL (160-400); Red Blood Count 4.14 X10*6/uL (4.20-5.50); Red Cell Distribution Width 13.5 % (11.0-16.0)
--- OUTSIDE RECORDS SUMMARY | 2024-08-25 10:55 | XMS_ITS | Patient Health Record ---
Author Organization [facility] Address [address] [place] [address] Care Team Providers Care Air Tool Operator Name Role Phone Jackeline Oakely Primary Care Provider Serenity Ybarra Unavailable [phone] Allergies Allergen (clinical drug ingredient) Drug/Non Drug Allergy documented on EMR Reaction Allergy Type Onset Date Status Latex Latex Unknown Allergy Active Reason For Referral No Information Medications Medication SIG (Take, Route, Frequency, Duration) Notes Start Date End Date Status Loratadine 10 MG 1 tablet Orally Once a day for 30 day(s) PRN Active Diprolene AF 0.05 % 1 application Configuration Analyst ally Once a day Active Naprosyn Active Naproxen 500 MG 1 tablet with food o r milk as needed Orally every 12 hrs Active Flonase Allergy Relief 50 MCG/ACT 1 spray in each nostril Nasally Once a day for 30 day(s) Active Calcium 500 + D 500-200 MG-UNIT 1 tablet with meals Orally Twice a day for 30 day(s) Active Social History Tobacco Use: Social History Observation Description Date Details (start date - stop date) Never Smoker NA - NA Tobacco Use/Smoking Question Answer Notes Are you a: nonsmoker Additional Findings: Tobacco Non-User Current no n-smoker Alcohol Screen Question Answer Notes Did you have a drink containing alcohol in the p ast year? No Points 0 Interpretation Negative Tobacco use other than smoking: Question Answer Notes Are you an other tobacco user? 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 Plan Of Treatment Pending Test Test Name Order Date X ray : Foot, right 3V 07/30/2020 58425, J0702- Neuroma/Injection 07/31/19 21 Insurance Providers Payer Name Payer Address Payer Phone Subscriber Number Group Number Insured Name Patient Relationship to Insured Coverage Start Date Coverage End Date [facility] 65 Medicare Preferred [address] [place] [address] [phone] [id number] Lyudmila Zarate Self - patient is the insured Medical (General) History Medical History History ICD Code Allergic rhinitis Hypercholesterolemia Broken bones Osteopenia Arthritis Gall bladder problems Sciatica chronic sinusitis Measles Mumps Chicken pox Surgical History Surgery Date(Month/Year) left knee arthroscopy cholecystectomy shoulder arthroscopy R [facility] 2012,2014 wrist surgery gall bladder 1999
--- OUTSIDE RECORDS SUMMARY | 2024-08-25 10:55 | XMS_ITS ---
Author Organization [facility] Address [address] [place] [address] Care Team Providers Care Hat Blocking Machine Operator Name Role Phone Jackeline Oakley MD Primary Care Provider Neptali Monzon Jr [phone] REASON FOR VISIT screening colon Encounters Encounter Location Date Provider Diagnosis [facility] [place] Outpatient [address] [place] [phone] 01/22/2024 Neptali Rosado Jr Colon cancer screening Z12.11 Assessments Encounter Date Diagnosis (ICD Code) Assessment Notes Treatment Notes Treatment Clinical Notes Section Notes 01/22/2024 Colon cancer screening (ICD-10 - Z12.11) Plan Of Treatment No Information Progress Notes * MARNIE PHILLIPEDOB: (74 yo F)Acc No.[id number]:01/22/2024 COLON WITH MAC Patient:?FLORINDA PHILLIP Provider:?Neptali Rosado MD :1950???Age:74 Y???Sex:Female D ate:01/22/2024 Address:[address] [place] [address] Pcp:Jackeline Oakley MD Subjective: * Chief Complaints: * ???1. Screening colon. * Medical History:? Objective: * Vitals:? Assessment: * Assessment: 1.?Colon cancer screening - Z12.11 (Primary)??? Plan: * Treatment: * Procedure Codes:?97251 DIAGN OSTIC COLONOSCOPY * * The named appointment provid er may or may not be the originator of this progress note, and it is not deemed complete until electronically signed by the appointment provider. Sign off status: Pending * Provider:?Neptali Rosado MD Date:?0 01/22/2024 Generated for Brenda felton/Liu/Lisa on:?08/25/2024 10:54 AM EDT
--- OUTSIDE RECORDS SUMMARY | 2024-08-25 10:55 | XMS_ITS | Patient Health Record ---
Author Organization [facility] Address [address] [place] [address] Care Team Providers Care Recording Studio Set Up Worker Name Role Phone Po Jackeline URBANO Primary Care Provider Neptali Monzon Jr Unavailable Allergies No Known Allergies Reason For Referral Referring Provider First Name Jackeline Referring Provider Last Name Po Referring Provider Speciality Internal M edicine Referred Organization [facility] Referred Provider Neptali Rosado Jr Referred Address [address],[place], [place],[address], Referred Provider Specialty Gastroentero logy General Notes Shirin Morrison 024 09:53:43 AM EDT > Referral Priority Routine Medications Medication SIG (Take, Route, Frequency, Duration) Notes Start Date End Date Status Loratadine Allergy Relief 10 MG 1 tablet on the tongue and allow to dissolve Orally Once a day 09/03/2014 Active Flonase 50 MCG/ACT 1 spray in each nost ril Nasally Once a day 09/03/2014 Active Immunizations Vaccine Route Administration Date Status Comme nts Influenza Unknown 12/12/2023 Refused Problems Problem Type SNOMED Code ICD Code Onset Dates Problem Status W/U Status Risk Notes Problem 126043267 Colon cancer screening (Z12.11) Active confirmed Problem 843747315 Encounter for other preprocedural examination (Z01.818) Active confirmed Vital Signs Temperature 97.3 degrees Fahrenheit 12/12/2023 Blood pressure diastolic 00 mm Hg 12/12/2023 Height 62 in 12/12/2023 Blood pressure systolic 000 mm Hg 12/12/2023 Weight 130 lb 6 oz lbs 12/12/2023 BMI 23.84 kg/m2 12/12/2023 Encounters Encounter Location Date Provider Diagnosis [facility] [place] [address] [phone] 01/22/2024 Neptali Rosado Jr Colon cancer screening Z12.11 [facility] [address] [place] [address] 12/12/2023 Neptali Rosado Jr Encounter for other preprocedural examination Z01.818 and Colon cancer screening Z12.11 [facility] [address] [place] [address] 10/25/2023 Neptali Rosado Jr Assessments Encounter Date Diagnosis (ICD Code) Assessment Notes Treatment Notes Treatment Clinical Notes Section Notes 01/22/2024 Colon cancer screening (ICD-10 - Z12.11) 12/12/2023 Colon cancer screening (ICD-10 - Z12.11) Endoscopy material was printed We discussed colonoscopy today. We discussed risks and benefits of the procedure today. She understands these and agrees to proceed. This will be scheduled at her convenience. 12/12/2023 Encounter for other preprocedural examination (ICD-10 - Z01.818) We discussed colonoscopy today. We discussed risks and benefits of the procedure today. She understands these and agrees to proceed. This will be scheduled at her convenience. Plan Of Treatment Future Test Test Name Order Date COLONOSCOPY 12/12/2023 Insurance Providers Payer Name Payer Address Payer Phone Subscriber Number Group Number Insured Name Patient Relationship to Insured Coverage Start Date Coverage End Date [facility] [employer] CLAIM[employer] [address] [place] [address] [id number] FLORINDA PHILLIP Self - patient is the insured Medical (General) History Medical History History ICD Code Colonoscopy 11/09, ten-year followup GERD Osteopenia Surgical History Surgery Date(Month/Year) left knee arthroscopy cholecystectomy shoulder surgery-both
--- OUTSIDE RECORDS SUMMARY | 2024-08-25 10:55 | XMS_ITS ---
Author Organization [facility] Address [address] [place] [address] Care Team Providers Care Sliver Lapper Name Role Phone Jackeline Oakley MD Primary Care Provider Neptali Monzon Jr REASON FOR VISIT insurance? Encounters Encounter Location Date Provider Diagnosis [facility] [address] [place] [phone] 10/25/2023 Neptali Rosado Jr Plan Of Treatment No Information Progress Notes * KENJI ARTUROOB: (73 yo F)Acc No.[id number]:10/25/2023 Patient:?FLORINDA PHILLIP :1950???Age:73 Y???Sex:Female Address:[address] [place] [id number] * true * Date:? Generated for Printi ng/Fajacobyg/eTransmitting on:?08/25/2024 10:54 AM EDT
--- OUTSIDE RECORDS SUMMARY | 2024-08-25 10:55 | XMS_ITS ---
Author Organization [facility] Address [address] [place] [address] Care Team Providers Care Home Health Care Provider Name Role Phone Jackeline Oakley MD Primary Care Provider Neptali Monzon Jr Allergies No Known Allergies REASON FOR VISIT Patient presents today for a COLON SCREENING Medications Medication SIG (Take, Route, Frequency, Duration) [...] Problem Status W/U Status Risk Notes Problem 397922379 Encounter for other preprocedural examination (Z01.818) Active confirmed Problem 717921538 Colon cancer screening (Z12.11) Active confirmed Vital Signs Temperature 97.3 degrees Fahrenheit 12/12/19 24 Blood pressure systolic 000 mm Hg 12/12/19 24 Blood pressure diastolic 00 mm Hg 024 Height 62 in 12/12/2023 Weight 130 lb 6 oz lbs 12/12/2023 BMI 23.84 kg/m2 12/12/2023 Encounters Encounter Location Date Provider [facility] [address] [place] [phone] 12/12/2023 Neptali Rosado Jr Encounter for other preprocedural examination Z01.818 and Colon cancer screening Z12.11 Assessments Encounter Date Diagnosis (ICD Code) Assessment Notes Treatment Notes Treatment Clinical Notes Section Notes 12/12/2023 Encounter for other preprocedural examination (ICD-10 - Z01.818) We discussed colonoscopy today. We discussed risks and benefits of the procedure today. She understands these and agrees to proceed. This will be scheduled at her convenience. 12/12/2023 Colon cancer screening (ICD-10 - Z12.11) Endoscopy material was printed We discussed colonoscopy today. We discussed risks and benefits of the procedure today. She understands these and agrees to proceed. This will be scheduled at her convenience. Plan Of Treatment Treatment Notes Assessment Notes Colon cancer screening Endoscopy materia l was printed Future Test Test Name Order Date COLONOSCOPY 12/12/2023 Next Appt Details Follow Up: 1 Year, Reason: Progress Notes * ARTURO PHILLIPOB: (73 yo F)Acc No.[id number]:12/12/2023 Progress Notes Patient:?FLORINDA PHILLIP Provider:?Neptali Rosado MD :1950???Age:73 Y???Sex:Female D ate:12/12/2023 Address:[address] [place] [address] Pcp:Jackeline Oakley MD Subjective: * Chief Complaints: * ???1. Patient presents today for a COLON SCREENING. * HPI: ???New symptom(s):? Florinda is a pleasant 73-year-old woman seen today in consultation for her preoperative colonoscopy visit. She has intermittent constipation which she treats with laxatives on a p.r.n. basis. Last colonoscopy in 2014 was remarkable for mild diverticulosis and internal hemorrhoids. We reviewed this today. She has no complaints of rectal bleeding or other change in her bowel habits. * ROS:?General/Constitutional:?Change in appetite?denies.?Fatigue?denies.?ENT:?Patient denies?difficulty swallowing.?Respiratory:?Patient denies?shortness of breath.?Cardiovascular:?Patient denies?chest pain.?Gastrointestinal:?Comments?See HPI for details.?Genitourinary:?Difficulty urinating?denies.?Incontinence?denies.?Musculoskeletal:?Patient denies?muscle aches.?Skin:?Patient denies?pruritis.?Neurologic:?Patient denies?low back pain.?Psychiatric:?Patient denies?mental or physical abuse.? * Medical History:?Colonoscopy 11/09, ten-year followup, GERD, Osteopenia. * Surgical History:?left knee arthroscopy , cholecystectomy , shoulder surgery- both . * Family History:?Father: dece ased, diagnosed with Diabetes.?Mother: , diagnosed with Diabetes, HTN (hypertension).?Paternal uncle: diagnosed with Colon cancer.?Paternal aunt: diagnosed with Colon cancer.? No family history of liver cancer. * Social History:?Tobacco Use:?Tobacco Use/Smoking?Are you a: nonsmoker.?Drugs/Alcohol:?Alcohol Screen?Points: 0, Interpretation: Negative.?Miscellaneous:?Marital status: . 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 * Medications:?Taking Loratadi ne Allergy Relief 10 MG Tablet Dispersible 1 tablet on the tongue and allow to dissolve Orally Once a day, Taking Flonase 50 MCG/ACT Suspension 1 spray in each nostril Nasally Once a day, Discontinued MoviPrep 100 GM Solution Reconstituted as directed before colonoscopy Orally , Medication List reviewed and reconciled with the patient * Allergies:?N.K.D.A. Objective: * Vitals:?Wt: 130 lb 6 oz, Ht: 62 in, BMI:23.84 Index, BP: 000/00 mm Hg, Temp: 97.3. * Examination: ???General Examination: ?GENERAL APPEARANCE:?in no acute distress.?HEAD:?normocephalic.?EYES:?sclera non-icteric.?ORAL CAVITY:?mucosa moist.?NECK/THYROID:?no lymphadenopathy.?SKIN:?anicteric.?HEART:?S1, S2 normal, no murmurs.?LUNGS:?clear to auscultation bilaterally.?CHEST:?normal shape and expansion.?ABDOMEN:?soft, nontender, nondistended, bowel sounds present, no organomegaly .?EXTREMITIES:?no clubbing, cyanosis, or edema.?PSYCH:?cognitive function intact.? Assessment: * Assessment: 1.?Encounter for other prepr ocedural examination - Z01.818 (Primary)?2.?Colon cancer screening - Z12.11? We discussed colonoscopy tobob stall[place]. We discussed risks and benefits of the procedure today. She understands these and agrees to proceed. This will be scheduled at her convenience. Plan: * Treatment: Notes: Endoscopy material was printed?? * Immunizations:? Influenza (Not administered - Refused: Patient decision) * Preventive Medicine:? ??Urinary Incontinence:?Urinary Incontinence?Assessment:?Absent,?Plan of care documented:?No, reason not specified.? ??Screenings:?Fall Risk Screening?Fall Risk Assessment:?No falls in the past year.? * Follow Up:?1 Year * * Sign off status: Completed true * Provider:?Neptali Rosado MD Date:?0 12/12/2023 Generated for Brenda felton/Liu/eTransmitting on:?08/25/2024 10:55 AM EDT History and Physical Notes * HPI (History of Present Illness) Category Sub-Category Detail Notes Category Not es New symptom(s) Florinda is a pleasant 73-year-old woman seen today in consultation for her preoperative colonoscopy visit. She has intermittent constipation which she treats with laxatives on a p.r.n. basis. Last colonoscopy in 2014 was remarkable for mild diverticulosis and internal hemorrhoids. We reviewed this today. She has no complaints of rectal bleeding or other change in her bowel habits. Examination Category Sub-Category Detail Notes Category Not es General Examination GENERAL APPEARANCE: in no acute di stress HEAD: normocephalic EYES: sclera non-icteric NECK/THYROID: no lymphadenopathy HEART: S1, S2 normal, no mu rmurs CHEST: normal shape and exp ansion LUNGS: clear to auscultatio n bilaterally ABDOMEN: soft, nontender, non distended, bowel sounds present, no organomegaly SKIN: anicteric EXTREMITIES: no clubbing, cyanosi s, or edema PSYCH: cognitive function i ntact ORAL CAVITY: mucosa moist
[2024-08-25 11:16] LABS: Estimated Average Glucose 111 mg/dL; Hemoglobin A1c % 5.5 % (<6.0)
[2024-08-25 11:24] LABS: Alanine Aminotransferase 11 U/L (0-31); Albumin Level 4.1 g/dL (3.5-5.0); Alkaline Phosphatase 58 U/L (39-117); Anion Gap 11 (12-20); Aspartate Amino Transferase 20 U/L (5-31); Bilirubin Total 0.7 mg/dL (0.0-1.0); Blood Urea Nitrogen 15 mg/dL (9-16); C Reactive Protein < 0.10 mg/dL (< or = 0.50); Calcium 8.9 mg/dL (8.4-10.2); Carbon Dioxide 28 mmol/L (22-29); Chloride 108 mmol/L (96-108); Cholesterol 203 mg/dL (<200); Estimated Glomerular Filt Rate 54; Glucose Random 94 mg/dL (60-115); HDL Cholesterol 62 mg/dL (>40); LDL Cholesterol Calculated 131 mg/dL (<100); Magnesium 2.1 mg/dL (1.6-2.6); Potassium 3.8 mmol/L (3.3-5.1); Sodium 143 mmol/L (135-145); Total Protein 6.5 g/dL (6.5-8.0); Triglycerides 51 mg/dL (<150)
[2024-08-25 11:26] LABS: Erythrocyte Sedimentation Rate 5 MM/HR (0-20)
[2024-08-25 11:29] LABS: Appearance Urine Clear; Color Urine Yellow; Glucose Urine UA Negative (Negative); Leukocyte Esterase Urine Negative (Negative); Nitrite Urine Negative (Negative); Urine Blood Negative (Negative); Urine Ketones Negative (Negative); Urine Protein Negative (Neg-Trace)
[2024-08-25 11:32] LABS: Thyroid Stimulating Hormone 2.51 uIU/mL (0.32-4.0); Vitamin D 25-OH Total 19.8 ng/mL (>30)
== END 2024-08-25 09:54 | disposition home or self-care (01) ==
LOC: HO.LAB 09:53
PROVIDERS: PCP Internal Medicine; Visit Provider Internal Medicine
DX: R73.02 Impaired glucose tolerance (oral) (principal); E78.00 Pure hypercholesterolemia, unspecified; R30.0 Dysuria
CPT/HCPCS: 36415; 80053; 80061; 81003; 82306; 83036; 83735; 84443; 85025; 85652; 86140

== ENCOUNTER 2024-08-29 10:02 | Outpatient (AMB) | payer MEDICARE, SELFPAY ==
--- NOTE | 2024-08-29 10:22 | A.OFFPC_ITS ---
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 Required: No Accompanied by: Self / Same As Patient Allergies lisinopril Allergy (Intermediate, Verified 08/29/24 10:29) Cough latex [Latex] Allergy (Mild, Verified 08/29/24 10:29) RASH Medication List - Last Reconciled 08/29/24 by Jackeline Oakley MD calcium carbonate (Calcium 600) 600 mg PO DAILY cholecalciferol (vitamin D3) 25 mcg PO DAILY fluticasone propionate 50 mcg/actuation (Flonase Allergy Relief) 2 sprays intranasal DAILY loratadine 10 mg PO DAILY Tobacco use date assessed: 08/29/24 Fall risk assessment: No Falls in past year Last assessed Fall Risk: 08/29/24 Dental Screening Dental Screen Date: 08/29/24 Did you have a dental visit in the last 12 months?: Yes Did you have a dental problem in the last 6 months where you did not have access to dental care?: No Was dental information given to patient?: Patient has dentist [facility] Medical History (Updated 08/29/24 @ 10:52 by Jackeline Oakley MD) Dizziness Colon cancer screening Osteopenia GERD (gastroesophageal reflux disease) HTN (hypertension) Ulnar neuropathy Osteoporosis Toe fracture, right Hypercholesterolemia Surgical History H/O colonoscopy History of arthroscopy of left shoulder H/O wrist surgery History of arthroscopy of right shoulder History of cholecystectomy History of arthroscopy of left knee Family History Father FH: prostate cancer Bladder cancer Mother CVD (cardiovascular disease) Social History Housing: House Are you a primary career guidance technician to a significant other at home: No Do you presently have visiting nurse or other home services: No Alcohol intake: never Patient Tobacco Use Status: Never used Tobacco e-Cigarette/Vaping Use: Never Used Second Hand Smoke Exposure: No service: No Current occupational status: retired Current occupation: Rt handed Cognitive needs: No Hearing needs: No Vision needs: Yes Questionnaire PHQ-9 Over the last 2 weeks, how often have you been bothered by any of the following problems? 1. Little interest or pleasure in doing things: not at all 2. Feeling down, depressed, or hopeless: not at all 3. Trouble falling or staying asleep, or sleeping too much: not at all 4. Feeling tired or having little energy: not at all 5. Poor appetite or overeating: not at all 6. Feeling bad about yourself - or that you are a failure or have let yourself or your family down: not at all 7. Trouble concentrating on things, such as reading the newspaper or watching television: not at all 8. Moving or speaking so slowly that other people could have noticed. Or the opposite - being so fidgety or restless that you have been moving around a lot more than usual: not at all 9. Thoughts that you would be better off or of hurting yourself in some way: not at all Total score: 0 Depression Screening Interpretation: Negative Depression Screening Done: Yes 23105 - PHQ-9 Billing: Yes Source: Developed by Drs. Sawyer Childs, Selena Weathers, Claus Jefferson and colleagues, with an educational navin from [employer]. Thrive Questionnaire Date Thrive assessed: 08/29/24 I am a: Patient What is your living situation today?: I have a steady place to live Within the past 12 months, did the food you bought not last and you didn't have the money to get more?: Never true Within the past 12 months, did you worry whether your food would run out before you got money to buy more?: Never true Do you have trouble paying for medicines?: No Do you have trouble getting transportation to medical appointments?: No Do you have trouble paying your heating and electricity bill?: No Do you have trouble taking care of your child, family member or friend?: No Do you have trouble with day-to-day activities such as bathing, preparing meals, shopping, managing finances, etc.?: No Are you currently unemployed and looking for a job?: No Are you interested in more education?: No Please select the resources that you would like help with: None Currently or been in a relationship where the following occur: No concerns reported THRIVE Score: 0 AUDIT C Alcohol Use Questionnaire (AUDIT-C) 1. How often do you have a drink containing alcohol?: Never 3. How often do you have six or more drinks on one occasion?: Never Total Score: 0 JINNY-7 AMB Questionnaire JINNY-7 Date JINNY - 7 assessed: 08/29/24 Feeling nervous, anxious, or on edge: 0 = Not at all Not being able to stop or control worryin = Not at all Worrying too much about different things: 0 = Not at all Trouble relaxin = Not at all Being so restless that it is hard to sit still: 0 = Not at all Becoming easily annoyed or irritable: 0 = Not at all Feeling afraid as if something awful might happen: 0 = Not at all Total JINNY-7 score (0-4 normal; 5-9 mild; 10-14 moderate; 15-21 severe): 0 Source: Developed by Drs. Sawyer Childs, Selena Weathers, Claus Jefferson and colleagues, with an educational navin from [employer]. JINNY-7 Assessment Billing JINNY-7 Assessment Tool: JINNY-7 Assessment 27444 Review of Systems Const Denies poor appetite and Denies weakness Eyes Denies no additional complaints ENT Reports Normal hearing present, Denies dizziness, Denies nasal congestion, Denies tinnitus and Denies sore throat Card Denies chest pain, Denies syncope, Denies rapid heart rate and Denies dyspnea Resp Denies cough and Denies dyspnea GI Denies change in stool character, Reports constipation, Denies diarrhea, Denies nausea and Denies vomiting Denies urinary frequency, Denies difficulty voiding and Denies dysuria Neuro Reports Normal hearing present, Denies confusion, Denies dizziness, Denies syncope and Denies weakness Psych Denies confusion Physical exam (Primary Care) Vital Signs: Last Vital Signs Temp 96.9 F 08/29/24 10:23 Pulse 80 08/29/24 10:23 Resp 15 08/29/24 10:23 BP 146/90 H 08/29/24 10:23 Pulse Ox 99 08/29/24 10:23 Oxygen Delivery Method Room Air 08/29/24 10:23 BMI result Body Mass Index 24.0 Tobacco/Smoking Status: Tobacco use Status Tobacco use date assessed 08/29/24 08/29/24 10:31 Patient Tobacco Use Status Never used Tobacco 08/29/24 10:22 e-Cigarette/Vaping Use Never Used 08/29/24 10:22 PHQ-9: PHQ-9 Score PHQ-9: Total score 0 08/29/24 10:31 Depression Screening Interpretation: Negative Thrive Assessment: Date of Thrive Assessment Date Thrive assessed 08/29/24 08/29/24 10:31 Currently or been in a relationship where the following occur: No concerns reported Const General: No confusion Orientation/consciousness: No confusion HENMT Head: Yes normocephalic Ears: external ears normal and TM's normal bilaterally Face and sinus: Yes normal facial exam Mouth: moist mucous membranes Throat: Yes tonsils normal Eyes Conjunctivae: conjunctivae normal Pupils: Equal, round and reactive pupils present and Pupil accommodation reflex normal Direct Ophthalmoscopy: normal light reflex Neck Neck: No lymphadenopathy Thyroid: Thyroid normal Chest Chest palpation & inspection: normal inspection of the chest Resp Effort & Inspection: normal respiratory effort and no audible wheezes Auscultation: clear to auscultation bilaterally, no crackles, no wheezes and lung sounds not diminished Cardio Rate: regular rate Rhythm: regular rhythm Peripheral pulses: radial pulses present and dorsalis pedis present GI Palpation (GI): no masses Auscultation: normal bowel sounds and normoactive bowel sounds Rectal Exam - Female: deferred Skin General skin exam: no rashes or lesions noted Rashes: no rashes Neuro General: No confusion Cranial nerves: Yes Equal, round and reactive pupils present and Yes Normal hearing present Cognition (Neuro): normal cognition Gait exam (Neuro): Normal gait present Motor exam (neuro): 5/5 motor strength present throughout Deep tendon reflexes (DTR's): Right brachioradialis reflex intensity grade: 2+, Left brachioradialis reflex intensity grade: 2+, Right patellar reflex intensity grade: 2+ and Left patellar reflex intensity grade: 2+ Extrem General: No edema Coding Level of Care Code Est Pt Prev Care >65y(82066) Diagnoses Annual physical exam Z00.00 Hypertension I10 Breast cancer screening by mammogram Z12.31 Hypercholesterolemia E78.00 Vitamin D deficiency E55.9 Bilateral arm pain M79.601; M79.602 Additional Codes JINNY-7 Assessment Billing - JINNY-7 Assessment Tool: JINNY-7 Assessment 09890 ([id number]) PHQ-9 - 62979 - PHQ-9 Billing: Yes ([id number]) Assessment & Plan Assessment & Plan (1) Annual physical exam: Code(s): Z00.00 - Encounter for general adult medical examination without abnormal findings Category: Medical Plan: Patient is advised to eat healthy, keep well hydrated, keep active and have adequate sleep. (2) Hypertension: Code(s): I10 - Essential (primary) hypertension Category: Medical Plan: Advised to continue monitoring blood pressure (3) Breast cancer screening by mammogram: Code(s): Z12.31 - Encounter for screening mammogram for malignant neoplasm of breast Category: Medical Plan: Patient is scheduled in September 01 for mammogram (4) Hypercholesterolemia: Code(s): E78.00 - Pure hypercholesterolemia, unspecified Category: Medical Plan: Avoid fried foods, chicken skin, eggs, butter margarine, pastries and meat. Be it pork or beef they have a lot of cholesterol LDL goal of less than 130 and triglyceride of less than 150 (5) Vitamin D deficiency: Code(s): E55.9 - Vitamin D deficiency, unspecified Category: Medical Plan: Recommended vitamin-D 2736-1042 units once a day (6) Bilateral arm pain: Code(s): M79.601 - Pain in right arm; M79.602 - Pain in left arm Category: Medical (7) Bilateral arm pain: Code(s): M79.601 - Pain in right arm; M79.602 - Pain in left arm Category: Medical Plan History of Present Illness The patient is a 74-year-old female presenting for a physical examination and chronic disease management. Her medical history includes essential hypertension, where recent home measurements reported elevated readings of 160/100 mmHg. Adjustments in monitoring protocol were discussed with plans to reassess trends over the upcoming months. The patient also has hypercholesterolemia with a mildly elevated LDL level of 131 mg/dL. Dietary modifications aiming for an LDL goal below 130 mg/dL are part of her management strategy. The patient has vitamin D deficiency, with previously recorded levels at 19 ng/mL, for which she takes variable supplementation, primarily influenced by seasonal changes. Recent efforts to maintain better supplementation were advised. She highlighted muscle pain in the upper arm muscles, noted as worse upon waking, and attributed these occurrences partially to ongoing stress. A history of pharyngitis was treated successfully with antibiotics during an earlier walk-in clinic visit. The past few blood workups showed consistent mild leukopenia with no current anemia, stable renal function, and appropriate liver function tests. Health Maintenance - Mammogram scheduled for September 01, 2024. - Colonoscopy performed in December 2023; normal results, next recommended in 10 years. - Bone density scan up to date. - Encouraged continuation of vitamin D supplementation with dosage recommendations between 1000 and 2000 IU daily, especially during winter. - Cholesterol management includes adherence to dietary modifications aiming for LDL targets less than 130 mg/dL. - Blood pressure monitoring instructions given, including position and frequency. - Advised stress management techniques. - Discussed the importance of regular meal consumption to avoid symptomatic blood sugar fluctuations. 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 - Retired but was working part-time; recently decided to fully retire. - Reports consuming a diet with high vegetable intake and some awareness of sodium content. - No alcohol or tobacco use. - Struggles with regular meal timing, affecting energy levels. Review of Systems - Constitutional: Denies fever. - Neurological: Reports feeling shaky, often related to meal timing. - Cardiovascular: Denies chest pain or heartburn. - Respiratory: Denies shortness of breath. - Gastrointestinal: Denies constipation, blood in stools, swallowing issues. - Genitourinary: Nighttime urination once or twice; high water intake. - Musculoskeletal: Reports morning arm pain focused on biceps and triceps. - Psychiatric: Reports stress related to caregiving responsibilities. Physical Exam General: Cooperative, healthy appearing, comfortable, no acute distress and well developed Orientation: Patient oriented x3 Limitations: No limitations Head: Normal to inspection Ears: Hearing grossly normal bilaterally Nose: Normal external nose present Face and sinus: Normal facial exam Eyes: Appearance normal, both eyes and all related structures Neck: Normal visual inspection and Yes full ROM Respiratory: Normal respiratory effort and able to speak in complete sentences. Clear to auscultation bilaterally Cardiovascular: Regular rate and rhythm. Normal S1 and S2 GI: Normal to inspection. Soft to palpation and nontender Skin: No rashes or lesions noted Neuro: Patient oriented x3 Extremities: Normal to inspection Results - Labs: Recent blood work indicates mild leukopenia, stable renal function, elevated LDL at 131 mg/dL, low vitamin D at 19 ng/mL, normal thyroid function tests. Plan Management focuses on essential hypertension where blood pressure monitoring adjustments are emphasized along with dietary cholesterol management strategies aiming to lower LDL levels. Consistent vitamin D supplementation is advised in light of deficiency. Stress management techniques were recommended due to contributing factors related to caregiving responsibilities and previous stress experiences. Referral to rheumatology was initiated concerning persistent musculoskeletal discomfort. Follow-up blood tests and a reassessment in three months to evaluate hypertension, musculoskeletal, and chronic management strategies were planned. Patient was informed and verbally consented to the use of an ambient scribe for clinic note documentation during this visit. Discussion Notes I discussed with the patient the importance of closely monitoring blood pressure and stressed the value of lifestyle adjustments for optimal control. We reviewed dietary changes to manage hypercholesterolemia and recommended regular use of vitamin D supplements. Identified musculoskeletal pain warranted a rheumatology referral for further evaluation. Consent was obtained for follow-up evaluations and indications for returning if symptoms worsen. The patient agreed to follow outlined recommendations and expressed understanding of the rationale behind them. Patient Instructions - Monitor blood pressure twice a week, ensuring to rest beforehand, and record readings. - Follow dietary recommendations to lower cholesterol, focusing on reducing LDL to below 130 mg/dL. - Take vitamin D supplements consistently, especially during winter months, aiming between 1000 and 2000 IU per day. - Apply stress-reducing techniques like scheduled relaxation to manage elevated blood pressure related to caregiving stressors. - Attend follow-up appointment in three months for further evaluation of hypertension management and additional testing as discussed. - Remain observant of arm discomfort and share any notable changes or persistent issues during the follow-up visit. Orders: Referrals Rheumatology Referral M79.601 - Pain in right arm, M79.602 - Pain in left arm Dermatology Referral L57.0 - Actinic keratosis Medications: Refilled cyanocobalamin (vitamin B-12) once Q 3 months 3 months 30 mL 3RF E53.8 - Deficiency of other specified B group vitamins
[2024-08-29 10:23] VITALS: BP 146/90; PULSE 80; RESP 15; TEMP 36.1; O2SAT 99; BMI 24.0
--- OUTSIDE RECORDS SUMMARY | 2024-08-29 11:21 | XMS_ITS ---
Author Organization [facility] Address [address] [place] [phone] Care Team Providers Care Lottery Office Manager Name Role Phone Jackeline Oakley MD Primary Care Provider Neptali Monzon Jr REASON FOR VISIT insurance? Encounters Encounter Location Date Provider Diagnosis [facility] [address] [place] [phone] 10/25/2023 Neptali Rosado Jr Plan Of Treatment No Information Progress Notes * KENJI ARTUROOB: (73 yo F)Acc No.[id number]:10/25/2023 Patient:?FLORINDA PHILLIP :1950???Age:73 Y???Sex:Female Address:[address] [place] [address] * true * Date:? Generated for Printi ng/Fajacobyg/eTransmitting on:?08/29/2024 11:21 AM EDT
--- OUTSIDE RECORDS SUMMARY | 2024-08-29 11:21 | XMS_ITS ---
Author Organization [facility] Address [address] [place] [phone] Care Team Providers Care Outbound Telemarketing Representative Name Role Phone Jackeline Oakley MD Primary Care Provider Neptali Monzon Jr [phone] Allergies No Known Allergies REASON FOR VISIT [...] Problem Status W/U Status Risk Notes Problem 626450820 Encounter for other preprocedural examination (Z01.818) Active confirmed Problem 966520074 Colon cancer screening (Z12.11) Active confirmed Vital Signs Temperature 97.3 degrees Fahrenheit 12/12/19 24 Blood pressure systolic 000 mm Hg 12/12/19 24 Blood pressure diastolic 00 mm Hg 024 Height 62 in 12/12/2023 Weight 130 lb 6 oz lbs 12/12/2023 BMI 23.84 kg/m2 12/12/2023 Encounters Encounter Location Date Provider Diagnosis [facility] [address] [place] [phone] 12/12/2023 Neptali Rosado Jr Encounter for other [...] Notes * ARTURO PHILLIPOB: (73 yo F)Acc No.[id number]:12/12/2023 Progress Notes Patient:?FLORINDA PHILLIP Provider:?Neptali Rosado MD :1950???Age:73 Y???Sex:Female D ate:12/12/2023 Address:[address] [place] [address] Pcp:Jackeline Oakley MD Subjective: * Chief Complaints: [...] Screen?Points: 0, Interpretation: Negative.?Miscellaneous:?Marital status: . 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 * Medications:?Taking Loratadi ne Allergy Relief 10 [...] MD Date:?0 12/12/2023 Generated for Brenda felton/Liu/eTransmitting on:?08/29/2024 11:21 AM EDT History and Physical Notes * [...]
--- OUTSIDE RECORDS SUMMARY | 2024-08-29 11:21 | XMS_ITS ---
Author Organization [facility] Address [address] [place] [address] Care Team Providers Care Lumber Kiln Operator Name Role Phone Jackeline Oakley MD Primary Care Provider Neptali Monzon Jr [phone] REASON FOR VISIT screening colon Encounters Encounter Location Date Provider Diagnosis [facility] Outpatient [address] [place] [id number] 01/22/2024 Neptali Rosado Jr Colon cancer screening Z12.11 Assessments Encounter Date Diagnosis (ICD Code) Assessment Notes Treatment Notes Treatment Clinical Notes Section Notes 01/22/2024 Colon cancer screening (ICD-10 - Z12.11) Plan Of Treatment No Information Progress Notes * MARNIE PHILLIPEDOB: (74 yo F)Acc No.[id number]:01/22/2024 COLON WITH MAC Patient:?FLORINDA PHILLIP Provider:?Neptali Rosado MD :1950???Age:74 Y???Sex:Female D ate:01/22/2024 Address:[address] [place] [address] Pcp:Jackeline Oakley MD Subjective: * Chief Complaints: * ???1. Screening colon. * Medical History:? Objective: * Vitals:? Assessment: * Assessment: 1.?Colon cancer screening - Z12.11 (Primary)??? Plan: * Treatment: * Procedure Codes:?55964 DIAGN OSTIC COLONOSCOPY * * The named appointment provid er may or may not be the originator of this progress note, and it is not deemed complete until electronically signed by the appointment provider. Sign off status: Pending * Provider:?Neptali Rosado MD Date:?0 01/22/2024 Generated for Brenda felton/Liu/Lisa on:?08/29/2024 11:20 AM EDT
--- OUTSIDE RECORDS SUMMARY | 2024-08-29 11:21 | XMS_ITS | Patient Health Record ---
Author [facility] Address [address] [place] [address] Care Team Providers Care Lvn Home Health Name Role Phone Jackeline Oakley Primary Care Provider Serenity Yabrra Unavailable [phone] Allergies Allergen (clinical drug ingredient) Drug/Non Drug Allergy documented on EMR Reaction Allergy Type Onset Date Status Latex Latex Unknown Allergy Active Reason For Referral No Information Medications Medication SIG (Take, Route, Frequency, Duration) Notes Start Date End Date Status Loratadine 10 MG 1 tablet Orally Once a day for 30 day(s) PRN Active Diprolene AF 0.05 % 1 application [employer] ally Once a day Active Naprosyn Active [...] Problem Status W/U Status Risk Notes Problem 183765205 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 Plan Of Treatment Pending Test Test Name Order Date X ray : Foot, right 3V 07/30/2020 90224, J0702- Neuroma/Injection 07/31/19 21 Insurance Providers Payer Name Payer Address Payer Phone Subscriber Number Group Number Insured Name Patient Relationship to Insured Coverage Start Date Coverage End Date [facility] 65 Medicare Preferred [address] [place] [address] [id number] Lyudmila Zarate Self - patient is the insured Medical (General) History Medical History History ICD Code Allergic rhinitis Hypercholesterolemia Broken bones Osteopenia Arthritis Gall bladder problems Sciatica chronic sinusitis Measles Mumps Chicken pox Surgical History Surgery Date(Month/Year) left knee arthroscopy cholecystectomy shoulder arthroscopy R & L 2012,2014 wrist surgery gall bladder 1999
--- OUTSIDE RECORDS SUMMARY | 2024-08-29 11:22 | XMS_ITS | Patient Health Record ---
Author Organization [facility] Address [address] [place] [address] Care Team Providers Care Teletypewriter Installer Name Role Phone Po Jackeline URBANO Primary Care Provider Neptali Monzon Jr Unavailable Allergies No Known Allergies Reason For Referral Referring Provider First Name Jackeline Referring Provider Last Name Po Referring Provider Speciality Internal M edicine Referred Organization [facility] Referred Provider Neptali Rosado Jr Referred Address [address] [facility],[place], [place],[address], Referred Provider Specialty Gastroentero logy General Notes [...] Problem Status W/U Status Risk Notes Problem 332078702 Colon cancer screening (Z12.11) Active confirmed Problem 394653592 Encounter for other preprocedural examination (Z01.818) Active confirmed Vital Signs Temperature 97.3 degrees Fahrenheit 12/12/2023 Blood pressure diastolic 00 mm Hg 12/12/2023 Height 62 in 12/12/2023 Blood pressure systolic 000 mm Hg 12/12/2023 Weight 130 lb 6 oz lbs 12/12/2023 BMI 23.84 kg/m2 12/12/2023 Encounters Encounter Location Date Provider Diagnosis [facility] [place] [address] [place], [place] [phone] 01/22/2024 Neptali Rosado Jr Colon cancer screening Z12.11 [facility] [address] [place] [address] 12/12/2023 Neptali Rosado Jr Encounter for other preprocedural examination Z01.818 and Colon cancer screening Z12.11 [facility] [address] [place] [address] 10/25/2023 Neptali Rosado Jr Assessments Encounter Date [...] Insured Coverage Start Date Coverage End Date [facility] [employer] [address] [place] [address] [id number] FLORINDA PHILLIP Self - patient is the insured Medical (General) History Medical History History ICD Code Colonoscopy 11/09, ten-year followup GERD Osteopenia Surgical History Surgery Date(Month/Year) left knee arthroscopy cholecystectomy shoulder surgery-both
== END 2024-08-29 11:01 | disposition home or self-care (01) ==
LOC: HO.HMCH 10:02
PROVIDERS: PCP Internal Medicine; Visit Provider Internal Medicine
DX: Z00.00 Encounter for general adult medical examination without abnormal findings (principal); I10 Essential (primary) hypertension; Z12.31 Encounter for screening mammogram for malignant neoplasm of breast; E78.00 Pure hypercholesterolemia, unspecified; E55.9 Vitamin D deficiency, unspecified; M79.601 Pain in right arm; M79.602 Pain in left arm

== ENCOUNTER → 2024-08-29 10:02 | Outpatient (BNVA) | payer MEDICARE, SELFPAY | PROVIDERS: PCP Internal Medicine; Visit Provider Internal Medicine | DX: Z00.00 Encounter for general adult medical examination without abnormal findings (principal); I10 Essential (primary) hypertension; E78.00 Pure hypercholesterolemia, unspecified; E55.9 Vitamin D deficiency, unspecified; M79.601 Pain in right arm; M79.602 Pain in left arm | CPT/HCPCS: 96127; 99397 ==

== ENCOUNTER 2024-09-01 13:08 | Outpatient (REF) | payer MEDICARE, SELFPAY ==
--- OUTSIDE RECORDS SUMMARY | 2024-09-01 15:37 | XMS_ITS | Patient Health Record ---
Author Organization [facility] Address [address] [place] [address] Care Team Providers Care Playground Aide Name Role Phone Po Jackeline URBANO Primary Care Provider Neptali Monzon Jr Unavailable [phone] Allergies No Known Allergies Reason For Referral Referring Provider First Name Jackeline Referring Provider Last Name Po Referring Provider Speciality Internal M edicine Referred Organization [facility] Referred Provider Neptali Rosado Jr Referred Address [address],[place], [place],[address], Referred Provider Specialty Gastroentero logy General Notes [...] Problem Status W/U Status Risk Notes Problem [id number] Colon cancer screening (Z12.11) Active confirmed Problem 773799440 Encounter for other preprocedural examination (Z01.818) Active confirmed Vital Signs Temperature 97.3 degrees Fahrenheit 12/12/2023 Blood pressure diastolic 00 mm Hg 12/12/2023 Height 62 in 12/12/2023 Blood pressure systolic 000 mm Hg 12/12/2023 Weight 130 lb 6 oz lbs 12/12/2023 BMI 23.84 kg/m2 12/12/2023 Encounters Encounter Location Date Provider Diagnosis [facility] [place] [address] [place], [place] [phone] 01/22/2024 Neptali Rosado Jr Colon cancer screening Z12.11 [facility] [address] [place] [address] 12/12/2023 Neptali Rosado Jr Encounter for other preprocedural examination Z01.818 and Colon cancer screening Z12.11 [facility] [address] [place] [address] 10/25/2023 Neptali Rosdao Jr Assessments Encounter Date Diagnosis (ICD Code) [...] Insured Coverage Start Date Coverage End Date [facility] PROFESSIONAL CLAIMS [address] [place] [address] [id number] FLORINDA PHILLIP Self - patient is the insured Medical (General) History Medical History History ICD Code Colonoscopy 11/09, ten-year followup GERD Osteopenia Surgical History Surgery Date(Month/Year) left knee arthroscopy cholecystectomy shoulder surgery-both
--- OUTSIDE RECORDS SUMMARY | 2024-09-01 15:37 | XMS_ITS ---
Author Organization [facility] Address [address] [place] [address] Care Team Providers Care Sky Cap Name Role Phone Jackeline Oakley MD Primary Care Provider Neptali Monzon Jr REASON FOR VISIT insurance? Encounters Encounter Location Date Provider Diagnosis [facility] [address] [place] [address] 10/25/2023 Neptali Rosado Jr Plan Of Treatment No Information Progress Notes * ARTURO PHILLIPOB: (73 yo F)Acc No.[id number]:10/25/2023 Patient:?FLORINDA PHILLIP :1950???Age:73 Y???Sex:Female Address:[address] [place] [address] * true * Date:? Generated for Printi purnima/Liu/eTransmitting on:?09/01/2024 03:36 PM EDT
--- OUTSIDE RECORDS SUMMARY | 2024-09-01 15:37 | XMS_ITS | Patient Health Record ---
Author Organization [facility] Address [address] [place] [address] Care Team Providers Care Bioinformatics Programmer Name Role Phone Jackeline Oakley Primary Care Provider Serenity Ybarra Unavailable [phone] Allergies Allergen (clinical drug ingredient) Drug/Non Drug Allergy documented on EMR Reaction Allergy Type Onset Date Status Latex Latex Unknown Allergy Active Reason For Referral No Information Medications Medication SIG (Take, Route, Frequency, Duration) Notes Start Date End Date Status Loratadine 10 MG 1 tablet Orally Once a day for 30 day(s) PRN Active Diprolene AF 0.05 % 1 application Field Administrator ally Once a day Active Naprosyn Active [...] Problem Status W/U Status Risk Notes Problem [id number] 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 Plan Of Treatment Pending Test Test Name Order Date X ray : Foot, right 3V 07/30/2020 86890, J0702- Neuroma/Injection 07/31/19 21 Insurance Providers Payer Name Payer Address Payer Phone Subscriber Number Group Number Insured Name Patient Relationship to Insured Coverage Start Date Coverage End Date [facility] 65 Medicare Preferred [address] [place] [address] [phone] [id number] Lyudmila Zarate Self - patient is the insured Medical (General) History Medical History History ICD Code Allergic rhinitis Hypercholesterolemia Broken bones Osteopenia Arthritis Gall bladder problems Sciatica chronic sinusitis Measles Mumps Chicken pox Surgical History Surgery Date(Month/Year) left knee arthroscopy cholecystectomy shoulder arthroscopy R & L 2012,2014 wrist surgery gall bladder 1999
--- OUTSIDE RECORDS SUMMARY | 2024-09-01 15:37 | XMS_ITS ---
Author Organization [facility] Address [address] [place] [address] Care Team Providers Care Pigs Feet Finisher Name Role Phone Jackeline Oakley MD Primary [...] Problem Status W/U Status Risk Notes Problem [id number] Encounter for other preprocedural examination (Z01.818) Active confirmed Problem 191629226 Colon cancer screening (Z12.11) Active confirmed Vital Signs Temperature 97.3 degrees Fahrenheit 12/12/19 24 Blood pressure systolic 000 mm Hg 12/12/19 24 Blood pressure diastolic 00 mm Hg 024 Height 62 in 12/12/2023 Weight 130 lb 6 oz lbs 12/12/2023 BMI 23.84 kg/m2 12/12/2023 Encounters Encounter Location Date Provider [facility] [address] [place] [address] 12/12/2023 Neptali Rosado Jr Encounter for other [...] Notes * ARTURO PHILLIPOB: (73 yo F)Acc No.[id number]:12/12/2023 Progress Notes Patient:?FLORINDA PHILLIP Provider:?Neptali Rosado MD :1950???Age:73 Y???Sex:Female D ate:12/12/2023 Address:[address] [place] [address] Pcp:Jackeline Oakley MD Subjective: * Chief Complaints: [...] Screen?Points: 0, Interpretation: Negative.?Miscellaneous:?Marital status: . 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 * Medications:?Taking Loratadi ne Allergy Relief [...] MD Date:?0 12/12/2023 Generated for Brenda felton/Liu/eTransmitting on:?09/01/2024 03:37 PM EDT History and Physical Notes * HPI [...]
--- OUTSIDE RECORDS SUMMARY | 2024-09-01 15:37 | XMS_ITS ---
Author Organization [facility] Address [address] [place] [address] Care Team Providers Care Newspaper Peddler Name Role Phone Jackeline Oakley MD Primary Care Provider Neptali Monzon Jr REASON FOR VISIT screening colon Encounters Encounter Location Date Provider Diagnosis [facility] Outpatient [address] [place] [phone] 01/22/2024 Neptali Rosado Jr Colon cancer screening Z12.11 Assessments Encounter Date Diagnosis (ICD Code) Assessment Notes Treatment Notes Treatment Clinical Notes Section Notes 01/22/2024 Colon cancer screening (ICD-10 - Z12.11) Plan Of Treatment No Information Progress Notes * MARNIE PHILLIPEDOB: (74 yo F)Acc No.[id number]:01/22/2024 COLON WITH MAC Patient:?FLORINDA PHILLIP Provider:?Neptali Rosado MD :1950???Age:74 Y???Sex:Female D ate:01/22/2024 Address:[address] [place] [address] Pcp:Jackeline Oakley MD Subjective: * Chief Complaints: * ???1. Screening colon. * Medical History:? Objective: * Vitals:? Assessment: * Assessment: 1.?Colon cancer screening - Z12.11 (Primary)??? Plan: * Treatment: * Procedure Codes:?91230 DIAGN OSTIC COLONOSCOPY * * The named appointment provid er may or may not be the originator of this progress note, and it is not deemed complete until electronically signed by the appointment provider. Sign off status: Pending * Provider:?Neptali Rosado MD Date:?0 01/22/2024 Generated for Brenda felton/Liu/Lisa on:?09/01/2024 03:36 PM EDT
== END 2024-09-01 13:09 | disposition home or self-care (01) ==
LOC: HO.MAMMO 13:08
PROVIDERS: PCP Internal Medicine; Visit Provider Internal Medicine
DX: Z12.31 Encounter for screening mammogram for malignant neoplasm of breast (principal)
CPT/HCPCS: 77063; 77067

== ENCOUNTER → 2024-09-01 13:30 | Outpatient (BNV) | payer MEDICARE, SELFPAY | PROVIDERS: PCP Internal Medicine; Visit Provider Internal Medicine | DX: Z12.31 Encounter for screening mammogram for malignant neoplasm of breast (principal) | CPT/HCPCS: 77063; 77067 ==

== ENCOUNTER 2024-10-06 14:17 | Outpatient (REF) | payer MEDICARE, SELFPAY ==
--- NOTE | ~2024-10-06 | XR_ITS ---
EXAMINATION: XR CERVICAL SPINE 2-3 VIEWS HISTORY: M79.601 - Pain in right arm COMPARISON: There are no prior studies for comparison. FINDINGS: AP, lateral, and open-mouth odontoid views of the cervical spine are submitted. Osseous mineralization is normal. Seven cervical vertebral bodies are identified maintaining normal height and alignment without evidence of fracture or subluxation. There is mild degenerative disc disease with disc space narrowing and osteophyte formation The odontoid and lateral masses of C1 are intact. There is no prevertebral soft tissue swelling. XR/XR cervical spine 2V IMPRESSION: Mild degenerative disc disease as described. Electronically signed by: Sawyer Jackson MD 10/06/2024 02:45 PM EDT
--- OUTSIDE RECORDS SUMMARY | 2024-10-06 14:29 | XMS_ITS ---
Author Organization [facility] Address [address] [place] [address] Care Team Providers Care Credit Assistant Name Role Phone Jackeline Oakley MD Primary Care Provider Neptali Monzon Jr REASON FOR VISIT screening colon Encounters Encounter Location Date Provider Diagnosis [facility] Outpatient [address] [place] [phone] 01/22/2024 Neptali Rosado Jr Colon cancer screening Z12.11 Assessments Encounter Date Diagnosis (ICD Code) Assessment Notes Treatment Notes Treatment Clinical Notes Section Notes 01/22/2024 Colon cancer screening (ICD-10 - Z12.11) Plan Of Treatment No Information Progress Notes * MARNIE PHILLIPEDOB: (74 yo F)Acc No.[id number]:01/22/2024 COLON WITH MAC Patient:?FLORINDA PHILLIP Provider:?Neptali Rosado MD :1950???Age:74 Y???Sex:Female D ate:01/22/2024 Address:[address] [place] [address] Pcp:Jackeline Oakley MD Subjective: * Chief Complaints: * ???1. Screening colon. * Medical History:? Objective: * Vitals:? Assessment: * Assessment: 1.?Colon cancer screening - Z12.11 (Primary)??? Plan: * Treatment: * Procedure Codes:?00632 DIAGN OSTIC COLONOSCOPY * * The named appointment provid er may or may not be the originator of this progress note, and it is not deemed complete until electronically signed by the appointment provider. Sign off status: Pending * Provider:?Neptali Rosado MD Date:?0 01/22/2024 Generated for Brenda felton/Liu/Lisa on:?10/06/2024 02:29 PM EDT
--- OUTSIDE RECORDS SUMMARY | 2024-10-06 14:30 | XMS_ITS ---
Author Organization [facility] Address [address] [place] [address] Care Team Providers Care Tnt Powder Worker Name Role Phone Jackeline Oakley MD Primary Care Provider Neptali Monzon Jr REASON FOR VISIT insurance? Encounters Encounter Location Date Provider Diagnosis [facility] [address] [place] [address] 10/25/2023 Neptali Rosado Jr Plan Of Treatment No Information Progress Notes * KENJI ARTUROOB: (73 yo F)Acc No.[id number]:10/25/2023 Patient:?FLORINDA PHILLIP :1950???Age:73 Y???Sex:Female Address:[address] [place] [address] * true * Date:? Generated for Printi ng/Fajacobyg/eTransmitting on:?10/06/2024 02:29 PM EDT
--- OUTSIDE RECORDS SUMMARY | 2024-10-06 14:30 | XMS_ITS ---
Author Organization [facility] Address [address] [place] [address] Care Team Providers Care Loft Rigger Name Role Phone Jackeline Oakley MD Primary Care Provider Neptali Monzon Jr [phone] Allergies No Known Allergies REASON FOR [...] Problem Status W/U Status Risk Notes Problem 445665473 Encounter for other preprocedural examination (Z01.818) Active confirmed Problem 507615508 Colon cancer screening (Z12.11) Active confirmed Vital Signs Temperature 97.3 degrees Fahrenheit 12/12/19 24 Blood pressure systolic 000 mm Hg 12/12/19 24 Blood pressure diastolic 00 mm Hg 024 Height 62 in 12/12/2023 Weight 130 lb 6 oz lbs 12/12/2023 BMI 23.84 kg/m2 12/12/2023 Encounters Encounter Location Date Provider Diagnosis [facility] [address] [place] [address] 12/12/2023 Neptali Rosado Jr Encounter for other [...] Notes * ARTURO PHILLIPOB: (73 yo F)Acc No.[id number]:12/12/2023 Progress Notes Patient:?FLORINDA PHILLIP Provider:?Neptali Rosado MD :1950???Age:73 Y???Sex:Female D ate:12/12/2023 Address:[address] [place] [address] Pcp:Jackeline Oakley MD Subjective: * Chief Complaints: [...] MD Date:?0 12/12/2023 Generated for Brenda felton/Liu/eTransmitting on:?10/06/2024 02:30 PM EDT History and Physical Notes * [...]
--- OUTSIDE RECORDS SUMMARY | 2024-10-06 14:30 | XMS_ITS | Patient Health Record ---
Author Organization [facility] Address [address] [place] [address] Care Team Providers Care Open Hearth Helper Name Role Phone Po Jackeline URBANO Primary Care Provider Neptali Monzon Jr Allergies No Known Allergies Reason For Referral No Information Medications Medication [...] Problem Status W/U Status Risk Notes Problem 832991060 Colon cancer screening (Z12.11) Active confirmed Problem 675839418 Encounter for other preprocedural examination (Z01.818) Active confirmed Vital Signs Temperature 97.3 degrees Fahrenheit 12/12/2023 Blood pressure diastolic 00 mm Hg 12/12/2023 Height 62 in 12/12/2023 Blood pressure systolic 000 mm Hg 12/12/2023 Weight 130 lb 6 oz lbs 12/12/2023 BMI 23.84 kg/m2 12/12/2023 Encounters Encounter Location Date Provider Diagnosis [facility] [place] Outpatient [address] [place] [phone] 01/22/2024 Neptali Rosado Jr Colon cancer screening Z12.11 [facility] [address] [place] [address] 12/12/2023 Neptali Rosado Jr Encounter for other preprocedural examination Z01.818 and Colon cancer screening Z12.11 [facility] [address] [place] [address] 10/25/2023 Neptali Rosado Jr Assessments Encounter Date [...] Insured Coverage Start Date Coverage End Date [facility] [employer]BS PROFESSIONAL CLAIMS [address] [place] [address] [id number] FLORINDA PHILLIP Self - patient is the insured Medical (General) History Medical History History ICD Code Colonoscopy 11/09, ten-year followup GERD Osteopenia Surgical History Surgery Date(Month/Year) left knee arthroscopy cholecystectomy shoulder surgery-both
--- OUTSIDE RECORDS SUMMARY | 2024-10-06 14:30 | XMS_ITS | Patient Health Record ---
Author Organization [facility] Address [address] [place] [address] Care Team Providers Care Religion Department Chair Name Role Phone Jackeline Oakley Primary Care Provider Serenity Ybarra Unavailable [phone] Allergies Allergen (clinical drug ingredient) Drug/Non Drug Allergy documented on EMR Reaction Allergy Type Onset Date Status Latex Latex Unknown Allergy Active Reason For Referral No Information Medications Medication SIG (Take, Route, Frequency, Duration) Notes Start Date End Date Status Loratadine 10 MG 1 tablet Orally Once a day for 30 day(s) PRN Active Diprolene AF 0.05 % 1 application Perfume Compounder ally Once a day Active Naprosyn Active [...] Problem Status W/U Status Risk Notes Problem 150902543 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 Plan Of Treatment Pending Test Test Name Order Date X ray : Foot, right 3V 07/30/2020 78321, J0702- Neuroma/Injection 07/31/19 21 Insurance Providers Payer Name Payer Address Payer Phone Subscriber Number Group Number Insured Name Patient Relationship to Insured Coverage Start Date Coverage End Date [facility] 65 Medicare Preferred [address] [place] [address] [phone] [id number] Lyudmila Zarate Self - patient is the insured Medical (General) History Medical History History ICD Code Allergic rhinitis Hypercholesterolemia Broken bones Osteopenia Arthritis Gall bladder problems Sciatica chronic sinusitis Measles Mumps Chicken pox Surgical History Surgery Date(Month/Year) left knee arthroscopy cholecystectomy shoulder arthroscopy R & L 2012,2014 wrist surgery gall bladder 1999
== END 2024-10-06 14:18 | disposition home or self-care (01) ==
LOC: HO.XRAY 14:17
PROVIDERS: PCP Internal Medicine; Visit Provider Internal Medicine
DX: M79.601 Pain in right arm (principal); M79.602 Pain in left arm
CPT/HCPCS: 72040

== ENCOUNTER → 2024-10-06 14:21 | Outpatient (BNV) | payer MEDICARE, SELFPAY | PROVIDERS: PCP Internal Medicine; Visit Provider Radiology Diagnostic Radiology | DX: M79.601 Pain in right arm (principal) | CPT/HCPCS: 72040 ==

== ENCOUNTER 2024-10-08 12:51 | Outpatient (AMB) | payer MEDICARE, SELFPAY ==
--- OUTSIDE RECORDS SUMMARY | 2024-10-08 13:10 | XMS_ITS ---
Author Organization [facility] Address [address] [place] [address] Care Team Providers Care Costumer Name Role Phone Jackeline Oakley MD Primary Care Provider Neptali Monzon Jr [phone] Allergies No Known Allergies REASON FOR VISIT [...] Problem Status W/U Status Risk Notes Problem 618349136 Encounter for other preprocedural examination (Z01.818) Active confirmed Problem 127432377 Colon cancer screening (Z12.11) Active confirmed Vital Signs Temperature 97.3 degrees Fahrenheit 12/12/19 24 Blood pressure systolic 000 mm Hg 12/12/19 24 Blood pressure diastolic 00 mm Hg 024 Height 62 in 12/12/2023 Weight 130 lb 6 oz lbs 12/12/2023 BMI 23.84 kg/m2 12/12/2023 Encounters Encounter Location Date Provider [facility] [address] [place] [address] 12/12/2023 Neptali Rosado Jr Encounter for other [...] Notes * ARTURO PHILLIPOB: (73 yo F)Acc No.[id number]:12/12/2023 Progress Notes Patient:?FLORINDA PHILLIP Provider:?Neptali Rosado MD :1950???Age:73 Y???Sex:Female D ate:12/12/2023 Address:[address] [place] [address] Pcp:Jackeline Oakley MD Subjective: * Chief Complaints: [...] Screen?Points: 0, Interpretation: Negative.?Miscellaneous:?Marital status: . 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 * Medications:?Taking Loratadi ne Allergy Relief [...] MD Date:?0 12/12/2023 Generated for Brenda felton/Liu/eTransmitting on:?10/08/2024 01:10 PM EDT History and Physical Notes * [...]
--- OUTSIDE RECORDS SUMMARY | 2024-10-08 13:10 | XMS_ITS ---
Author Organization [facility] Address [address] [place] [address] Care Team Providers Care Head Filter Tank Tender Helper Name Role Phone Jackeline Oakley MD Primary Care Provider Neptali Monzon Jr REASON FOR VISIT insurance? Encounters Encounter Location Date Provider Diagnosis [facility] [address] [place] [phone] 10/25/2023 Neptali Rosado Jr Plan Of Treatment No Information Progress Notes * ARTURO PHILLIPOB: (73 yo F)Acc No.[id number]:10/25/2023 Patient:?FLORINDA PHILLIP :1950???Age:73 Y???Sex:Female Address:[address] [place] [address] * true * Date:? Generated for Printi ng/Fajacobyg/eTransmitting on:?10/08/2024 01:09 PM EDT
--- OUTSIDE RECORDS SUMMARY | 2024-10-08 13:10 | XMS_ITS | Patient Health Record ---
Author Organization [facility] Address [address] [place] [address] Care Team Providers Care Environmental Conservation Officer Name Role Phone Jackeline Oakley Primary Care Provider Serenity Ybarra Unavailable [phone] Allergies Allergen (clinical drug ingredient) Drug/Non Drug Allergy documented on EMR Reaction Allergy Type Onset Date Status Latex Latex Unknown Allergy Active Reason For Referral No Information Medications Medication SIG (Take, Route, Frequency, Duration) Notes Start Date End Date Status Loratadine 10 MG 1 tablet Orally Once a day for 30 day(s) PRN Active Diprolene AF 0.05 % 1 application Marketing Support Assistant ally Once a day Active Naprosyn Active [...] Problem Status W/U Status Risk Notes Problem 919786520 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 Plan Of Treatment Pending Test Test Name Order Date X ray : Foot, right 3V 07/30/2020 82950, J0702- Neuroma/Injection 07/31/19 21 Insurance Providers Payer Name Payer Address Payer Phone Subscriber Number Group Number Insured Name Patient Relationship to Insured Coverage Start Date Coverage End Date [facility] 65 Medicare Preferred [address] [place] [address] [id number] Lyudmila Zarate Self - patient is the insured Medical (General) History Medical History History ICD Code Allergic rhinitis Hypercholesterolemia Broken bones Osteopenia Arthritis Gall bladder problems Sciatica chronic sinusitis Measles Mumps Chicken pox Surgical History Surgery Date(Month/Year) left knee arthroscopy cholecystectomy shoulder arthroscopy R & L 2012,2014 wrist surgery gall bladder 1999
--- OUTSIDE RECORDS SUMMARY | 2024-10-08 13:10 | XMS_ITS | Patient Health Record ---
Author Organization [facility] Address [address] [place] [address] Care Team Providers Care Office Sweeper Name Role Phone Po Jackeline URBANO Primary Care Provider Neptali Monzon Jr [phone] Allergies No Known Allergies Reason For Referral [...] Problem Status W/U Status Risk Notes Problem 261792254 Colon cancer screening (Z12.11) Active confirmed Problem 689761499 Encounter for other preprocedural examination (Z01.818) Active confirmed Vital Signs Temperature 97.3 degrees Fahrenheit 12/12/2023 Blood pressure diastolic 00 mm Hg 12/12/2023 Height 62 in 12/12/2023 Blood pressure systolic 000 mm Hg 12/12/2023 Weight 130 lb 6 oz lbs 12/12/2023 BMI 23.84 kg/m2 12/12/2023 Encounters Encounter Location Date Provider Diagnosis [facility] Outpatient [address] [place] [phone] 01/22/2024 Neptali Rosado Jr Colon cancer screening Z12.11 [facility] [address] [place] [address] 12/12/2023 Neptali Rosado Jr Encounter for other preprocedural examination Z01.818 and Colon cancer screening Z12.11 [facility] [address] [place] [address] 10/25/2023 Neptali Rosado Jr Assessments Encounter Date [...] Insured Coverage Start Date Coverage End Date [facility] BLUE BCBS PROFESSIONAL CLAIMS [address] [place] [address] [id number] FLORINDA PHILLIP Self - patient is the insured Medical (General) History Medical History History ICD Code Colonoscopy 11/09, ten-year followup GERD Osteopenia Surgical History Surgery Date(Month/Year) left knee arthroscopy cholecystectomy shoulder surgery-both
--- OUTSIDE RECORDS SUMMARY | 2024-10-08 13:10 | XMS_ITS ---
Author Organization [facility] Address [address] [place] [address] Care Team Providers Care Cost Analyst Name Role Phone Jackeline Oakley MD Primary Care Provider Neptali Monzon Jr [phone] REASON FOR VISIT screening colon Encounters Encounter Location Date Provider Diagnosis [facility] [place] [address] [place] [phone] 01/22/2024 Neptali Rosado Jr Colon cancer screening Z12.11 Assessments Encounter Date Diagnosis (ICD Code) Assessment Notes Treatment Notes Treatment Clinical Notes Section Notes 01/22/2024 Colon cancer screening (ICD-10 - Z12.11) Plan Of Treatment No Information Progress Notes * MARNIE PHILLIPEDOB: (74 yo F)Acc No.[id number]:01/22/2024 COLON WITH MAC Patient:?FLORINDA PHILLIP Provider:?Neptali Rosado MD :1950???Age:74 Y???Sex:Female D ate:01/22/2024 Address:[address] [place] [address] Pcp:Jackeline Oakley MD Subjective: * Chief Complaints: * ???1. Screening colon. * Medical History:? Objective: * Vitals:? Assessment: * Assessment: 1.?Colon cancer screening - Z12.11 (Primary)??? Plan: * Treatment: * Procedure Codes:?71141 DIAGN OSTIC COLONOSCOPY * * The named appointment provid er may or may not be the originator of this progress note, and it is not deemed complete until electronically signed by the appointment provider. Sign off status: Pending * Provider:?Neptali Rosado MD Date:?0 01/22/2024 Generated for Brenda felton/Liu/Lisa on:?10/08/2024 01:09 PM EDT
--- NOTE | 2024-10-08 13:16 | AM.OFFVISNUR ---
Intake Visit Reasons: B12 Allergies lisinopril Allergy (Intermediate, Verified 08/29/24 10:29) Cough latex [Latex] Allergy (Mild, Verified 08/29/24 10:29) RASH Office Meds cyanocobalamin (vitamin B-12) 1,000 mcg/mL injection solution Performing Provider: Jackeline Oakley MD Performing [facility] Administered by: Reshma Hooper LPN on 10/08/24 13:17 Dose Route Admin Location Dispensed Lot Number Expiration Date [facility] [place] Recorder 1,000 mcg IM left deltoid 1 mL [id number] 04/26/25 3078-[address]34-26 [facility] Assessment & Plan Assessment & Plan Orders: Orders AMB Vitamin B12 Injection Patient Supplied Today E53.8 - Deficiency of other specified B group vitamins Medications: New cyanocobalamin (vitamin B-12) 1,000 mcg IM ONCE 1 mL 0RF E53.8 - Deficiency of other specified B group vitamins Coding
== END 2024-10-08 13:18 | disposition home or self-care (01) ==
LOC: HO.HMCH 12:51
PROVIDERS: PCP Internal Medicine; Visit Provider Internal Medicine
DX: E53.8 Deficiency of other specified B group vitamins (principal)

== ENCOUNTER → 2024-10-08 12:51 | Outpatient (BNVA) | payer MEDICARE, SELFPAY | PROVIDERS: PCP Internal Medicine; Visit Provider Internal Medicine | DX: E53.8 Deficiency of other specified B group vitamins (principal) | CPT/HCPCS: 96372; J3420 ==

== ENCOUNTER 2024-10-28 09:17 | Outpatient (AMB) | payer MEDICARE, SELFPAY ==
--- NOTE | 2024-10-28 09:21 | MHC.OFFWIV ---
Intake Vital Signs 10/28/24 09:23 Weight 135 lb BP 142/90 H Blood Pressure Location Lt brachial Position Sitting Pulse 71 Pulse Source Pulse Oximeter Pulse Oximetry (%) 98 Oxygen Delivery Method Room Air Intake Visit Reasons: EP ? scab on LT ear Intake Note: Patient here for sore left ear that has been present for about 4-5 days. Patient Tobacco Use Status: Never used Tobacco Allergies lisinopril Allergy (Intermediate, Verified 10/28/24 09:26) Cough latex [Latex] Allergy (Mild, Verified 10/28/24 09:26) RASH Medication List - Last Reconciled 10/28/24 by Andrew Reyna MD calcium carbonate (Calcium 600) 600 mg PO DAILY cholecalciferol (vitamin D3) 25 mcg PO DAILY cyanocobalamin (vitamin B-12) once Q 3 months 3 months fluticasone propionate 50 mcg/actuation (Flonase Allergy Relief) 2 sprays intranasal DAILY loratadine 10 mg PO DAILY Do you need a note to return to daycare/school/sports/work: No HPI EP ? scab on LT ear HPI Details History - The patient is a 74-year-old female presenting with discomfort in the left ear. - The onset of symptoms began approximately five days prior to the visit. - The patient describes a sensation similar to having a foreign body within the ear canal. - She reports self-treatment by applying peroxide - The patient notes the sensation of a scab or sore inside the ear canal, with a scratchy feeling upon touch. - No associated fever or difficulty in hearing has been reported. - No previous issues with ear infections or similar problems were noted. Medications: - Peroxide application in the ear canal for self-treatment of discomfort. Problem List - Ear canal abrasion - Ear canal abrasion Patient Instructions - Avoid inserting objects or fingers into the ear canal to prevent further irritation or injury. - Allow the sore within the ear canal to heal naturally by avoiding any additional trauma. - Use prescribed ear drops as directed to reduce inflammation and aid in healing. 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: Alert awake oriented x3 motor sensory intact Skin: Normal turgor PFSH Medical History Dizziness Colon cancer screening Osteopenia GERD (gastroesophageal reflux disease) HTN (hypertension) Ulnar neuropathy Osteoporosis Toe fracture, right Hypercholesterolemia Surgical History H/O colonoscopy History of arthroscopy of left shoulder H/O wrist surgery History of arthroscopy of right shoulder History of cholecystectomy History of arthroscopy of left knee Family History Father FH: prostate cancer Bladder cancer Mother CVD (cardiovascular disease) Social History Housing: House Are you a primary companion caregiver to a significant other at home: No Do you presently have visiting nurse or other home services: No Alcohol intake: never Patient Tobacco Use Status: Never used Tobacco e-Cigarette/Vaping Use: Never Used Second Hand Smoke Exposure: No service: No Current occupational status: retired Current occupation: Rt handed Cognitive needs: No Hearing needs: No Vision needs: Yes Physical Exam Vital Signs: Last Vital Signs Pulse 71 10/28/24 09:23 BP 142/90 H 10/28/24 09:23 Pulse Ox 98 10/28/24 09:23 Oxygen Delivery Method Room Air 10/28/24 09:23 Assessment & Plan Assessment & Plan (1) Otitis externa, left: Code(s): H60.92 - Unspecified otitis externa, left ear Qualifiers: Otitis externa type: unspecified type Chronicity: acute Qualified Code(s): H60.502 - Unspecified acute noninfective otitis externa, left ear Plan History - The patient is a 74-year-old female presenting with discomfort in the left ear. - The onset of symptoms began approximately five days prior to the visit. - The patient describes a sensation similar to having a foreign body within the ear canal. - She reports self-treatment by applying peroxide - The patient notes the sensation of a scab or sore inside the ear canal, with a scratchy feeling upon touch. - No associated fever or difficulty in hearing has been reported. - No previous issues with ear infections or similar problems were noted. Medications: - Peroxide application in the ear canal for self-treatment of discomfort. Problem List - Ear canal abrasion - Ear canal abrasion Patient Instructions - Avoid inserting objects or fingers into the ear canal to prevent further irritation or injury. - Allow the sore within the ear canal to heal naturally by avoiding any additional trauma. - Use prescribed ear drops as directed to reduce inflammation and aid in healing. Medications: New ciprofloxacin-dexamethasone 0.3-0.1 % 4 drps otic (ears) BID 5 days 7.5 mL 0RF Coding Level of Care Code Est Pt Level 3 (53732) Diagnoses Acute otitis externa of left ear, unspecified type H60.502 Otitis externa type: unspecified type Chronicity: acute
[2024-10-28 09:23] VITALS: BP 142/90; PULSE 71; O2SAT 98
--- OUTSIDE RECORDS SUMMARY | 2024-10-28 10:13 | XMS_ITS ---
Author Organization [facility] Address [address] [place] [address] Care Team Providers Care Rivet Thrower Name Role Phone Jackeline Oakley MD Primary Care Provider Neptali Monzon Jr [phone] REASON FOR VISIT screening colon Encounters Encounter Location Date Provider Diagnosis [facility] [place] Outpatient [address] [place] [id number] 01/22/2024 Neptali Rosado Jr Colon cancer screening Z12.11 Assessments Encounter Date Diagnosis (ICD Code) Assessment Notes Treatment Notes Treatment Clinical Notes Section Notes 01/22/2024 Colon cancer screening (ICD-10 - Z12.11) Plan Of Treatment No Information Progress Notes * MARNIE PHILLIPEDOB: (74 yo F)Acc No.[id number]:01/22/2024 COLON WITH MAC Patient:?FLORINDA PHILLIP Provider:?Neptali Rosado MD :1950???Age:74 Y???Sex:Female D ate:01/22/2024 Address:[address] [place] [address] Pcp:Jackeline Oakley MD Subjective: * Chief Complaints: * ???1. Screening colon. * Medical History:? Objective: * Vitals:? Assessment: * Assessment: 1.?Colon cancer screening - Z12.11 (Primary)??? Plan: * Treatment: * Procedure Codes:?35115 DIAGN OSTIC COLONOSCOPY * * The named appointment provid er may or may not be the originator of this progress note, and it is not deemed complete until electronically signed by the appointment provider. Sign off status: Pending * Provider:?Neptali Rosado MD Date:?0 01/22/2024 Generated for Brenda felton/Liu/Lisa on:?10/28/2024 10:13 AM EDT
== END 2024-10-28 09:45 | disposition home or self-care (01) ==
PROVIDERS: PCP Internal Medicine; Visit Provider Internal Medicine
DX: H60.502 Unspecified acute noninfective otitis externa, left ear (principal)

== ENCOUNTER → 2024-10-28 09:17 | Outpatient (BNVA) | payer MEDICARE, SELFPAY | PROVIDERS: PCP Internal Medicine; Visit Provider Internal Medicine | DX: H60.502 Unspecified acute noninfective otitis externa, left ear (principal) | CPT/HCPCS: 99212 ==

== ENCOUNTER 2024-12-18 09:24 | Outpatient (AMB) | payer MEDICARE, SELFPAY ==
--- OUTSIDE RECORDS SUMMARY | 2024-01-22 07:40 | XMS_ITS ---
Author Organization [facility] Address [address] [place] [id number] Care Team Providers Care Paginator Name Role Phone Jackeline Oakley MD Primary Care Provider Neptali Monzon Jr REASON FOR VISIT screening colon Encounters Encounter Location Date Provider Diagnosis [facility] [place] [address] [place] [id number] 01/22/2024 Neptali Rosado Jr Colon cancer screening Z12.11 Assessments Encounter Date Diagnosis (ICD Code) Assessment Notes Treatment Notes Treatment Clinical Notes Section Notes 01/22/2024 Colon cancer screening (ICD-10 - Z12.11) Plan Of Treatment No Information Progress Notes * MARNIE PHILLIPEDOB: (74 yo F)Acc No.[id number]:01/22/2024 COLON WITH MAC Patient: FLORINDA MOTA Provider: Kiersten Rosado MD :1950 A ge:74 Y S ex:Female Date:01/22/2024 Address:[address] [place] [address] Pcp:Jackeline Oakley MD Subjective: * Chief Complaints: [...] Date: 01/22/2024 Generated for Brenda felton/Liu/Lisa on: 12/18/2024 09:57 AM EDT
[2024-12-18 09:28] VITALS: BP 150/90; PULSE 80; RESP 18; TEMP 36.2; O2SAT 99; BMI 24.2
--- NOTE | 2024-12-18 09:28 | A.OFFPC_ITS ---
Vital Signs 12/18/24 09:28 12/18/24 09:39 Height 5 ft 2 in Weight 132 lb 6 oz BMI 24.2 BP 150/90 H 144/80 H Blood Pressure Location Lt brachial Lt brachial Position Sitting Sitting Respiration 18 Pulse 80 Pulse Source Pulse Oximeter Temp 97.1 F Temp Source Temporal Artery Scan Pulse Oximetry (%) 99 Oxygen Delivery Method Room Air Intake Visit Reasons: Hypertension Allergies lisinopril Allergy (Intermediate, Verified 12/18/24 09:28) Cough latex (Latex) Allergy (Mild, Verified 12/18/24 09:28) RASH Tobacco use date assessed: 12/18/24 Fall risk assessment: No Falls in past year Last assessed Fall Risk: 12/18/24 Dental Screening Dental Screen Date: 12/18/24 Did you have a dental visit in the last 12 months?: Yes Did you have a dental problem in the last 6 months where you did not have access to dental care?: No Was dental information given to patient?: Patient has dentist [facility] Medical History Dizziness Colon cancer screening Osteopenia GERD (gastroesophageal reflux disease) HTN (hypertension) Ulnar neuropathy Osteoporosis Toe fracture, right Hypercholesterolemia Surgical History H/O colonoscopy History of arthroscopy of left shoulder H/O wrist surgery History of arthroscopy of right shoulder History of cholecystectomy History of arthroscopy of left knee Family History Father FH: prostate cancer Bladder cancer Mother CVD (cardiovascular disease) Social History Housing: House Are you a primary critical care physician to a significant other at home: No Do you presently have visiting nurse or other home services: No Alcohol intake: never Patient Tobacco Use Status: Never used Tobacco e-Cigarette/Vaping Use: Never Used Second Hand Smoke Exposure: No service: No Current occupational status: retired Current occupation: Rt handed Cognitive needs: No Hearing needs: No Vision needs: Yes Questionnaire PHQ-9 Over the last 2 weeks, how often have you been bothered by any of the following problems? 1. Little interest or pleasure in doing things: not at all 2. Feeling down, depressed, or hopeless: not at all 3. Trouble falling or staying asleep, or sleeping too much: not at all 4. Feeling tired or having little energy: not at all 5. Poor appetite or overeating: not at all 6. Feeling bad about yourself - or that you are a failure or have let yourself or your family down: not at all 7. Trouble concentrating on things, such as reading the newspaper or watching television: not at all 8. Moving or speaking so slowly that other people could have noticed. Or the opposite - being so fidgety or restless that you have been moving around a lot more than usual: not at all 9. Thoughts that you would be better off or of hurting yourself in some way: not at all Total score: 0 Source: Developed by Drs. Sawyer Childs, Selena Weathers, Claus Jefferson and colleagues, with an educational navin from [employer]. Thrive Questionnaire Date Thrive assessed: 12/11/24 I am a: Patient What is your living situation today?: I choose not to answer this question Within the past 12 months, did the food you bought not last and you didn't have the money to get more?: I choose not to answer this question Within the past 12 months, did you worry whether your food would run out before you got money to buy more?: I choose not to answer this question Do you have trouble paying for medicines?: I choose not to answer this question Do you have trouble getting transportation to medical appointments?: I choose not to answer this question Do you have trouble paying your heating and electricity bill?: I choose not to answer this question Do you have trouble taking care of your child, family member or friend?: I choose not to answer this question Do you have trouble with day-to-day activities such as bathing, preparing meals, shopping, managing finances, etc.?: I choose not to answer this question Are you currently unemployed and looking for a job?: I choose not to answer this question Are you interested in more education?: I choose not to answer this question Currently or been in a relationship where the following occur: I choose not to answer THRIVE Score: 0 AUDIT C Alcohol Use Questionnaire (AUDIT-C) 1. How often do you have a drink containing alcohol?: Never 3. How often do you have six or more drinks on one occasion?: Never Total Score: 0 JINNY-7 AMB Questionnaire JINNY-7 Date JINNY - 7 assessed: 08/29/24 Feeling nervous, anxious, or on edge: 0 = Not at all Not being able to stop or control worryin = Not at all Worrying too much about different things: 0 = Not at all Trouble relaxin = Not at all Being so restless that it is hard to sit still: 0 = Not at all Becoming easily annoyed or irritable: 0 = Not at all Feeling afraid as if something awful might happen: 0 = Not at all Total JINNY-7 score (0-4 normal; 5-9 mild; 10-14 moderate; 15-21 severe): 0 Source: Developed by Drs. Sawyer Childs, Selena Weathers, Claus Jefferson and colleagues, with an educational navin from [employer]. Physical exam (Primary Care) Vital Signs: Last Vital Signs Temp 97.1 F 12/18/24 09:28 Pulse 80 12/18/24 09:28 Resp 18 12/18/24 09:28 BP 144/80 H 12/18/24 09:39 Pulse Ox 99 12/18/24 09:28 Oxygen Delivery Method Room Air 12/18/24 09:28 BMI result Body Mass Index 24.2 Tobacco/Smoking Status: Tobacco use Status Tobacco use date assessed 12/18/24 12/18/24 09:29 Patient Tobacco Use Status Never used Tobacco 12/18/24 09:29 e-Cigarette/Vaping Use Never Used 12/18/24 09:29 PHQ-9: PHQ-9 Score PHQ-9: Total score 0 12/18/24 09:39 Thrive Assessment: Date of Thrive Assessment Date Thrive assessed 12/11/24 12/18/24 09:29 Currently or been in a relationship where the following occur: I choose not to answer Const General: alert; No acute distress Eyes Conjunctivae: conjunctivae normal Resp Auscultation: clear to auscultation bilaterally Cardio Rate: regular rate Rhythm: regular rhythm GI Inspection: Yes normal to inspection Extrem General: Yes normal to inspection and No edema Coding Level of Care Code Est Pt Level 4 (91571) Diagnoses Hypertension I10 Hypercholesterolemia E78.00 Impaired glucose tolerance R73.02 BPPV (benign paroxysmal positional vertigo) H81.10 Assessment & Plan Assessment & Plan (1) Hypertension: Code(s): I10 - Essential (primary) hypertension Category: Medical Plan: Continue with blood pressure medication. Decrease salt intake and exercise patient is not on any medication presently (2) Hypercholesterolemia: Code(s): E78.00 - Pure hypercholesterolemia, unspecified Category: Medical Plan: Avoid fried foods, chicken skin, eggs, butter margarine, pastries and meat. Be it pork or beef they have a lot of cholesterol LDL goal of less than 130 and triglyceride of less than 150 (3) Impaired glucose tolerance: Code(s): R73.02 - Impaired glucose tolerance (oral) Category: Medical Plan: Decrease the amount of carbohydrate intake, pasta, bread, rice and potatoes are all sugar and that is aside from all the sweet stuff, remember that fruits are good but they are Sweet also. (4) BPPV (benign paroxysmal positional vertigo): Code(s): H81.10 - Benign paroxysmal vertigo, unspecified ear Category: Medical Plan: Discussed with the patient regarding getting physical therapy for the vertigo. Will call if it gets worse. Plan History of Present Illness The patient is a 74-year-old female presenting for a follow-up visit to manage chronic conditions and address recent symptoms. She has a history of hypercholesterolemia and hypertension, with blood pressure readings occasionally reaching 144/80 mmHg. The patient was previously on hydrochlorothiazide but discontinued it about a year ago after being advised it was safe to do so. She reports dizziness, particularly when getting out of bed, which has been persistent and concerning. Her medical history includes osteoporosis diagnosed in February 2023, and she follows up with endocrinology for this condition. She also has seborrheic dermatitis and eczema, for which she has been prescribed topical treatments in the past. In October, she experienced left ear pain and was treated with antibiotics at an urgent care center. She has a history of cervical spine degenerative disc disease, confirmed by x-ray showing mild degenerative changes. Her last blood work in July showed normal blood counts and electrolytes, stable renal function, but elevated cholesterol and low vitamin D levels. She has been advised to maintain a cholesterol level with an LDL goal of less than 130 mg/dL and triglycerides less than 150 mg/dL. Health Maintenance - Mammogram up to date as of August 2024 - Colonoscopy up to date as of December 2023 - Bone density screening noted osteoporosis in February 2023 - Discussed shingles vaccination, patient received it three weeks ago Social History - Reports occasional dizziness when getting out of bed, requiring her to sit before standing Review of Systems - Cardiovascular: Denies chest pain, palpitations, or syncope. - Neurological: Reports dizziness, denies headaches or balance issues. - Musculoskeletal: Reports neck pain, denies joint swelling or stiffness. - Dermatological: Reports seborrheic dermatitis and eczema. - ENT: Reports left ear pain, denies hearing loss or tinnitus. Physical Exam - Cardiovascular: Blood pressure 144/80 mmHg, no murmurs or gallops noted. - Neurological: No dizziness observed during examination, no pain upon palpation of the jaw area. - Musculoskeletal: No pain upon palpation of the neck, muscular pain noted possibly due to positioning. Results - Labs: July blood work showed normal blood counts, normal electrolytes, stable renal function, elevated cholesterol, and low vitamin D. - Imaging: Cervical spine x-ray showed mild degenerative disc disease. Plan The patient will resume hydrochlorothiazide to manage her hypertension, as her blood pressure readings have been elevated since discontinuing the medication a year ago. She is advised to monitor her blood pressure regularly and maintain adequate hydration, especially with the reintroduction of the diuretic. For her hypercholesterolemia, the patient is encouraged to achieve an LDL cho lesterol goal of less than 130 mg/dL and triglycerides less than 150 mg/dL. She should continue following up with endocrinology for her osteoporosis management. The patient is advised to be cautious with ear piercings to prevent recurrent cellulitis and to avoid inserting earrings if there is any sign of infection. If dizziness persists, she should consider physical therapy for vertigo management. Patient was informed and verbally consented to the use of an ambient scribe for clinic note documentation during this visit. Discussion Notes I discussed with the patient the importance of resuming hydrochlorothiazide to control her hypertension and the need for regular blood pressure monitoring. We reviewed her cholesterol management goals and the importance of maintaining hydration with the diuretic. I advised her on preventing cellulitis by being cautious with ear piercings and discussed the option of physical therapy if her dizziness continues. Patient Instructions - Resume taking hydrochlorothiazide as prescribed. - Monitor blood pressure regularly and maintain hydration. - Aim for LDL cholesterol less than 130 mg/dL and triglycerides less than 150 mg/dL. - Follow up with endocrinology for osteoporosis management. - Be cautious with ear piercings to prevent cellulitis. - Consider physical therapy if dizziness persists. Medications: Refilled hydrochlorothiazide 12.5 mg PO DAILY 90 tabs 3RF 90 days I10 - Essential (primary) hypertension
[2024-12-18 09:39] VITALS: BP 144/80
--- OUTSIDE RECORDS SUMMARY | 2024-12-18 09:58 | XMS_ITS | Patient Health Record ---
Author [facility] Address [address] [place] [address] Care Team Providers Care Surveyor Rod Helper Name Role Phone Jackeline Oakley Primary Care Provider Serenity Ybarra Unavailable [phone] Allergies Allergen (clinical drug ingredient) Drug/Non Drug Allergy documented on EMR Reaction Allergy Type Onset Date Status Latex Latex Unknown Allergy Active Reason For Referral No Information Medications Medication SIG (Take, Route, Frequency, Duration) Notes Start Date End Date Status Loratadine 10 MG 1 tablet Orally Once a day; Duration: 30 day(s) PRN Active Diprolene AF 0.05 % 1 application Signal Integrity Engineer ally Once a day Active Naprosyn Active Naproxen 500 MG 1 tablet with food o r milk as needed Orally every 12 hrs Active Flonase Allergy Relief 50 MCG/ACT 1 spray in each nostril Nasally Once a day; Duration: 30 day(s) Active Calcium 500 + D 500-200 MG-UNIT 1 tablet with meals Orally Twice a day; Duration: 30 day(s) Active Social History Tobacco Use: [...] Problem Status W/U Status Risk Notes Problem Plantar nerve lesion ([id number]) 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 Plan Of Treatment Pending Test Test Name Order Date X ray : Foot, right 3V 07/30/2020 [id number], [id number] Neuroma/Injection 07/31/19 21 Insurance Providers Payer Name Payer Address Payer Phone Subscriber Number Group Number Insured Name Patient Relationship to Insured Coverage Start Date Coverage End Date [employer] 65 Medicare Preferred [address] [place] [address] [id number] Lyudmila Zarate Self - patient is the insured Medical (General) History Medical History History ICD Code Allergic rhinitis Hypercholesterolemia Broken bones Osteopenia Arthritis Gall bladder problems Sciatica chronic sinusitis Measles Mumps Chicken pox Surgical History Surgery Date(Month/Year) left knee arthroscopy cholecystectomy shoulder arthroscopy R [facility] 2012,2014 wrist surgery gall bladder 1999
== END 2024-12-18 09:55 | disposition home or self-care (01) ==
LOC: HO.HMCH 09:25
PROVIDERS: PCP Internal Medicine; Visit Provider Internal Medicine
DX: I10 Essential (primary) hypertension (principal); E78.00 Pure hypercholesterolemia, unspecified; R73.02 Impaired glucose tolerance (oral); H81.10 Benign paroxysmal vertigo, unspecified ear

== ENCOUNTER → 2024-12-18 09:24 | Outpatient (BNVA) | payer MEDICARE, SELFPAY | PROVIDERS: PCP Internal Medicine; Visit Provider Internal Medicine | DX: I10 Essential (primary) hypertension (principal); E78.00 Pure hypercholesterolemia, unspecified; R73.02 Impaired glucose tolerance (oral); H81.10 Benign paroxysmal vertigo, unspecified ear; Z13.30 Encounter for screening examination for mental health and behavioral disorders, unspecified | CPT/HCPCS: 96127; 99212 ==

== ENCOUNTER 2025-01-02 14:47 | Outpatient (AMB) | payer MEDICARE, SELFPAY ==
--- OUTSIDE RECORDS SUMMARY | 2024-01-22 07:40 | XMS_ITS ---
Author Organization [facility] Address [address] [place] [id number] Care Team Providers Care Inspector Plating Name Role Phone Jackeline Oakley MD Primary Care Provider Neptali Monzon Jr [phone] REASON FOR VISIT screening colon Encounters Encounter Location Date Provider Diagnosis [facility] Outpatient [address] [place] [id number] 01/22/2024 Neptali Rosado Jr Colon cancer screening Z12.11 Assessments Encounter Date Diagnosis (ICD Code) Assessment Notes Treatment Notes Treatment Clinical Notes Section Notes 01/22/2024 Colon cancer screening (ICD-10 - Z12.11) Plan Of Treatment No Information Progress Notes * MARNIE PHILLIPEDOB: (74 yo F)Acc No.[id number]:01/22/2024 COLON WITH MAC Patient: FLORINDA MOTA Provider: Kiersten Rosado MD :1950 A ge:74 Y S ex:Female Date:01/22/2024 Address:[address] [place] [address] Pcp:Jackeline Oakley MD Subjective: * Chief Complaints: * 1 . Screening colon. * Medical History: Objective: * Vitals: Assessment: * Assessment: 1. C olon cancer screening - Z12.11 (Primary) Plan: * Treatment: * Procedure Codes: 4 5378 DIAGNOSTIC COLONOSCOPY * * The named appointment provid er may or may not be the originator of this progress note, and it is not deemed complete until electronically signed by the appointment provider. Sign off status: Pending * Provider: Kiersten Rosado MD Date: 01/22/2024 Generated for Brenda felton/Liu/Lisa on: 01/02/2025 02:50 PM EDT
--- OUTSIDE RECORDS SUMMARY | 2025-01-02 14:51 | XMS_ITS | Patient Health Record ---
Author Organization [facility] Address [address] [place] [address] Care Team Providers Care Shingle Catcher Name Role Phone Jackeline Oakley Primary Care Provider Serenity Ybarra Unavailable [phone] Allergies Allergen (clinical drug ingredient) Drug/Non Drug Allergy documented on EMR Reaction Allergy Type Onset Date Status Latex Latex Unknown Allergy Active Reason For Referral No Information Medications Medication SIG (Take, Route, Frequency, Duration) Notes Start Date End Date Status Loratadine 10 MG 1 tablet Orally Once a day; Duration: 30 day(s) PRN Active Diprolene AF 0.05 % 1 application Fashion Buyer ally Once a day Active Naprosyn Active [...] Status Risk Notes Problem Plantar nerve lesion ([id number]) 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 Plan Of Treatment Pending Test Test Name Order Date X ray : Foot, right 3V 07/30/2020 [id number], [id number] Neuroma/Injection 07/31/19 21 Insurance Providers Payer Name Payer Address Payer Phone Subscriber Number Group Number Insured Name Patient Relationship to Insured Coverage Start Date Coverage End Date [employer] 65 Medicare Preferred [address] [place] [address] [id number] Lyudmila Zarate Self - patient is the insured Medical (General) History Medical History History ICD Code Allergic rhinitis Hypercholesterolemia Broken bones Osteopenia Arthritis Gall bladder problems Sciatica chronic sinusitis Measles Mumps Chicken pox Surgical History Surgery Date(Month/Year) left knee arthroscopy cholecystectomy shoulder arthroscopy R & L 2012,2014 wrist surgery gall bladder 1999
--- NOTE | 2025-01-02 15:26 | AM.OFFVISNUR ---
Intake Visit Reasons: B12 Shot Allergies lisinopril Allergy (Intermediate, Verified 12/18/24 09:28) Cough latex (Latex) Allergy (Mild, Verified 12/18/24 09:28) RASH Office Meds cyanocobalamin (vitamin B-12) 1,000 mcg/mL injection solution Performing Provider: Jackeline Oakley MD [place] [facility] [place] [facility] Administered by: Reshma Hooper LPN on 01/02/25 15:26 Dose Route Admin Location Dispensed Lot Number Expiration Date [facility] [place] Fruit Picker 1,000 mcg IM left deltoid 1 mL [id number] 01/25/26 64685-050-70 [employer] Total Dispensed Waste 1 mL 0 % Assessment & Plan Assessment & Plan Orders: Orders AMB Vitamin B12 Injection Patient Supplied Today E53.8 - Deficiency of other specified B group vitamins Coding
== END 2025-01-02 15:27 | disposition home or self-care (01) ==
LOC: HO.HMCH 14:47
PROVIDERS: PCP Internal Medicine
DX: E53.8 Deficiency of other specified B group vitamins (principal)

== ENCOUNTER → 2025-01-02 14:47 | Outpatient (BNVA) | payer MEDICARE, SELFPAY | PROVIDERS: PCP Internal Medicine | DX: E53.8 Deficiency of other specified B group vitamins (principal) | CPT/HCPCS: 96372; J3420 ==

== ENCOUNTER 2025-04-06 13:10 | Outpatient (AMB) | payer MEDICARE, SELFPAY ==
[2025-04-06 13:13] VITALS: BP 150/78; PULSE 76; TEMP 36.2; O2SAT 98
--- NOTE | 2025-04-06 13:13 | MHC.OFFVIS ---
Vital Signs 04/06/25 13:13 Height 5 ft 2 in Intake Visit Reasons: Hypertension Allergies lisinopril Allergy (Intermediate, Verified 12/18/24 09:28) Cough latex (Latex) Allergy (Mild, Verified 12/18/24 09:28) RASH PFSH Medical History Dizziness Colon cancer screening Osteopenia GERD (gastroesophageal reflux disease) HTN (hypertension) Ulnar neuropathy Osteoporosis Toe fracture, right Hypercholesterolemia Surgical History H/O colonoscopy History of arthroscopy of left shoulder H/O wrist surgery History of arthroscopy of right shoulder History of cholecystectomy History of arthroscopy of left knee Family History Father FH: prostate cancer Bladder cancer Mother CVD (cardiovascular disease) Social History Housing: House Are you a primary hospice home care coordinator to a significant other at home: No Do you presently have visiting nurse or other home services: No Alcohol intake: never Patient Tobacco Use Status: Never used Tobacco e-Cigarette/Vaping Use: Never Used Second Hand Smoke Exposure: No service: No Current occupational status: retired Current occupation: [employer] Cognitive needs: No Hearing needs: No Vision needs: Yes Coding
--- NOTE | 2025-04-06 13:17 | A.OFFPC_ITS ---
Vital Signs 04/06/25 13:13 Height 5 ft 2 in BMI Reason not done Patient refused/unable BP 150/78 H Blood Pressure Location Lt brachial Position Sitting Pulse 76 Pulse Source Pulse Oximeter Temp 97.1 F Temp Source Temporal Artery Scan Pulse Oximetry (%) 98 Oxygen Delivery Method Room Air Intake Visit Reasons: Hypertension Allergies lisinopril Allergy (Intermediate, Verified 04/06/25 13:17) Cough latex (Latex) Allergy (Mild, Verified 04/06/25 13:17) RASH Tobacco use date assessed: 04/06/25 Fall risk assessment: No Falls in past year Last assessed Fall Risk: 04/06/25 Dental Screening Dental Screen Date: 04/06/25 Did you have a dental visit in the last 12 months?: Yes Did you have a dental problem in the last 6 months where you did not have access to dental care?: No Was dental information given to patient?: Patient has dentist [facility] Medical History (Updated 04/06/25 @ 13:24 by Jackeline Oakley MD) Osteoporosis Dizziness Colon cancer screening Osteopenia GERD (gastroesophageal reflux disease) HTN (hypertension) Ulnar neuropathy Toe fracture, right Hypercholesterolemia Surgical History H/O colonoscopy History of arthroscopy of left shoulder H/O wrist surgery History of arthroscopy of right shoulder History of cholecystectomy History of arthroscopy of left knee Family History Father FH: prostate cancer Bladder cancer Mother CVD (cardiovascular disease) Social History Housing: House Are you a primary small animal caretaker to a significant other at home: No Do you presently have visiting nurse or other home services: No Alcohol intake: never Patient Tobacco Use Status: Never used Tobacco e-Cigarette/Vaping Use: Never Used Second Hand Smoke Exposure: No service: No Current occupational status: retired Current occupation: Rt handed Cognitive needs: No Hearing needs: No Vision needs: Yes Questionnaire PHQ-9 Over the last 2 weeks, how often have you been bothered by any of the following problems? 1. Little interest or pleasure in doing things: not at all 2. Feeling down, depressed, or hopeless: not at all 3. Trouble falling or staying asleep, or sleeping too much: not at all 4. Feeling tired or having little energy: not at all 5. Poor appetite or overeating: not at all 6. Feeling bad about yourself - or that you are a failure or have let yourself or your family down: not at all 7. Trouble concentrating on things, such as reading the newspaper or watching television: not at all 8. Moving or speaking so slowly that other people could have noticed. Or the opposite - being so fidgety or restless that you have been moving around a lot more than usual: not at all 9. Thoughts that you would be better off or of hurting yourself in some way: not at all Total score: 0 Source: Developed by Drs. Sawyer Childs, Selena Weathers, Claus Jefferson and colleagues, with an educational navin from [employer]. Thrive Questionnaire Date Thrive assessed: 12/11/24 I am a: Patient What is your living situation today?: I choose not to answer this question Within the past 12 months, did the food you bought not last and you didn't have the money to get more?: I choose not to answer this question Within the past 12 months, did you worry whether your food would run out before you got money to buy more?: I choose not to answer this question Do you have trouble paying for medicines?: I choose not to answer this question Do you have trouble getting transportation to medical appointments?: I choose not to answer this question Do you have trouble paying your heating and electricity bill?: I choose not to answer this question Do you have trouble taking care of your child, family member or friend?: I choose not to answer this question Do you have trouble with day-to-day activities such as bathing, preparing meals, shopping, managing finances, etc.?: I choose not to answer this question Are you currently unemployed and looking for a job?: I choose not to answer this question Are you interested in more education?: I choose not to answer this question Please select the resources that you would like help with: None Currently or been in a relationship where the following occur: I choose not to answer THRIVE Score: 0 AUDIT C Alcohol Use Questionnaire (AUDIT-C) 1. How often do you have a drink containing alcohol?: Never 3. How often do you have six or more drinks on one occasion?: Never Total Score: 0 JINNY-7 AMB Questionnaire JINNY-7 Date JINNY - 7 assessed: 08/29/24 Feeling nervous, anxious, or on edge: 0 = Not at all Not being able to stop or control worryin = Not at all Worrying too much about different things: 0 = Not at all Trouble relaxin = Not at all Being so restless that it is hard to sit still: 0 = Not at all Becoming easily annoyed or irritable: 0 = Not at all Feeling afraid as if something awful might happen: 0 = Not at all Total JINNY-7 score (0-4 normal; 5-9 mild; 10-14 moderate; 15-21 severe): 0 Source: Developed by Drs. Sawyer Childs, Selena Weathers, Claus Jefferson and colleagues, with an educational navin from [employer]. Physical exam (Primary Care) Vital Signs: Last Vital Signs Temp 97.1 F 04/06/25 13:13 Pulse 76 04/06/25 13:13 BP 150/78 H 04/06/25 13:13 Pulse Ox 98 04/06/25 13:13 Oxygen Delivery Method Room Air 04/06/25 13:13 Tobacco/Smoking Status: Tobacco use Status Tobacco use date assessed 04/06/25 04/06/25 13:18 Patient Tobacco Use Status Never used Tobacco 04/06/25 13:18 e-Cigarette/Vaping Use Never Used 04/06/25 13:18 PHQ-9: PHQ-9 Score PHQ-9: Total score 0 04/06/25 13:18 Thrive Assessment: Date of Thrive Assessment Date Thrive assessed 12/11/24 04/06/25 13:18 Currently or been in a relationship where the following occur: I choose not to answer Const General: alert; No acute distress Eyes Conjunctivae: conjunctivae normal Resp Auscultation: clear to auscultation bilaterally Cardio Rate: regular rate Rhythm: regular rhythm GI Inspection: Yes normal to inspection Extrem General: Yes normal to inspection and No edema Coding Level of Care Code Est Pt Level 4 (88545) Complex EM visit Add On G2211 Diagnoses Hypertension I10 Hypercholesterolemia E78.00 Impaired glucose tolerance R73.02 White coat syndrome with diagnosis of hypertension I10 Osteoporosis M81.0 Assessment & Plan Assessment & Plan (1) Hypertension: Code(s): I10 - Essential (primary) hypertension Category: Medical Plan: Continue with blood pressure medication. Decrease salt intake and exercise on hydrochlorothiazide 12.5 mg once a day (2) Hypercholesterolemia: Code(s): E78.00 - Pure hypercholesterolemia, unspecified Category: Medical Plan: Avoid fried foods, chicken skin, eggs, butter margarine, pastries and meat. Be it pork or beef they have a lot of cholesterol (3) Impaired glucose tolerance: Code(s): R73.02 - Impaired glucose tolerance (oral) Category: Medical Plan: Decrease the amount of carbohydrate intake, pasta, bread, rice and potatoes are all sugar and that is aside from all the sweet stuff, remember that fruits are good but they are Sweet also. (4) White coat syndrome with diagnosis of hypertension: Code(s): I10 - Essential (primary) hypertension Category: Medical Plan: BP at home is good. (5) Osteoporosis: Comment: 02/2023 Code(s): M81.0 - Age-related osteoporosis without current pathological fracture Category: Medical Plan: declined for now Plan History of Present Illness The patient is a 75-year-old female presenting for a follow-up visit for management of chronic conditions. The patient has a history of hypertension and is prescribed hydrochlorothiazide 12.5 mg daily. She reports monitoring her blood pressure at home with normal readings, such as 116/80 mmHg, but notes it is consistently high during office visits, which she attributes to stress from the check-in process. She has a history of hypercholesterolemia and impaired glucose tolerance. Her last blood work was in July, which showed a normal blood count, normal electrolytes, and mildly elevated cholesterol. The patient reports chronic bilateral arm and shoulder pain, which she describes as feeling like a muscular ache that feels She has a history of two prior shoulder surgeries and states the pain is identical on both sides. For pain management, she sometimes takes several Advil at night before bed. She canceled a rheumatology appointment and has not rescheduled. The patient has a history of osteoporosis or weakness in the bones, confirmed by a bone density scan in February 2023. She denies any recent falls or feelings of unsteadiness. Regarding health maintenance, her colonoscopy is up to date as of December 2023, and her mammogram is up to date as of August 2024. She has previously received the shingles vaccine and reports staying well-hydrated. Health Maintenance The patient is up to date on her mammogram and colonoscopy. An influenza vaccine was administered during the visit, while the pneumonia vaccine was declined. An order for blood work will be placed, and she will follow up for her next annual physical. Social History - The patient plans to travel to [place], [place] for the holidays to visit her son and sister. - The patient denies falls or unsteadiness. - The patient reports occasionally taking Advil for pain. Review of Systems - Musculoskeletal: Reports bilateral arm and shoulder pain, described as a muscular ache that feels like it's - Neurological: Denies falls or unsteadiness. Physical Exam - Vitals: Blood pressure is 148/70 mmHg. - Integumentary: An influenza vaccination was administered. Results - Labs (July): Normal blood count, normal electrolytes, mildly elevated cholesterol. - Bone Density Scan (February 2023): Findings consistent with osteoporosis/bone weakness. Plan Patient was informed and verbally consented to the use of an ambient scribe for clinic note documentation during this visit. 1. Essential Hypertension The patient's blood pressure is elevated in the office at 148/70 mmHg, but she reports normal readings at home (e.g., 116/80 mmHg), which is consistent with white coat hypertension. The plan is to continue the current regimen of hydrochlorothiazide 12.5 mg once daily and to continue monitoring her blood pressure at home. 2. Hypercholesterolemia The patient has a history of hypercholesterolemia, with her last labs in July showing mildly elevated levels. A new request for blood tests will be made to reassess her lipid profile. 3. Bilateral Shoulder Pain The patient reports bilateral, muscular shoulder and arm pain, likely related to arthritis or tendinopathy, for which she sometimes takes Advil. She was advised to always take Advil with food to prevent stomach ulcers and was informed that Tylenol could be taken as an alternative or in combination. Continued stretching of the arms was recommended. 4. Osteoporosis The patient has a history of osteoporosis confirmed on a 2022 bone density scan and currently denies any falls or instability. A follow-up bone density scan will be deferred for another year, and the importance of fall prevention was emphasized. Discussion Notes I discussed with the patient her blood pressure readings, noting the discrepancy between her elevated in-office measurement and her normal home readings. We agreed to continue her current medication and rely on home monitoring, attributing the office readings to situational stress. We discussed her bilateral arm pain and the use of Advil. I explained the risk of stomach ulcers when taking it without food and outlined the different mechanisms of Tylenol (analgesic) and Advil (anti-inflammatory), confirming that she can take them alternately or together. Regarding her bone health, we reviewed her history of osteoporosis and decided to defer a repeat bone density scan for another year, while I reinforced the importance of fall prevention. I informed the patient that I would place an order for blood tests. We administered an influenza vaccine after she consented. We planned for her to return for her next annual physical exam, and she will schedule this appointment with the front end software developer. Patient Instructions - Continue taking Hydrochlorothiazide 12.5 mg once a day for your blood pressure. - Keep checking your blood pressure at home as you have been doing. - For your arm pain, if you take Advil or similar medications, please make sure to take them with food to protect your stomach. - You can take Tylenol and Advil either together or at different times for pain relief. - Continue to stretch your arms and shoulders regularly. - Be careful to prevent any falls. - Please go to the lab for the blood tests that have been ordered for you. - Please schedule a follow-up appointment for your next yearly check-up. - You received your flu shot today in your arm. Orders: Orders Comprehensive Met. Panel 3 Months E78.00 - Pure hypercholesterolemia, unspecified Complete Blood Count Auto Diff 3 Months E78.00 - Pure hypercholesterolemia, unspecified Thyroid Stimulating Hormone 3 Months E78.00 - Pure hypercholesterolemia, unspecified Lipid Panel 3 Months E78.00 - Pure hypercholesterolemia, unspecified Free T4 (Free Thyroxine) 3 Months E78.00 - Pure hypercholesterolemia, unspecified Vitamin B12 and Folate 3 Months E78.00 - Pure hypercholesterolemia, unspecified Vitamin D 25-OH Total 3 Months E78.00 - Pure hypercholesterolemia, unspecified Hemoglobin A1c 3 Months E78.00 - Pure hypercholesterolemia, unspecified UA CC w/rflx Micro + Cult 3 Months E78.00 - Pure hypercholesterolemia, unspec ified, R30.0 - Dysuria
== END 2025-04-06 13:33 | disposition home or self-care (01) ==
LOC: HO.HMCH 13:11
PROVIDERS: PCP Internal Medicine; Visit Provider Internal Medicine
DX: I10 Essential (primary) hypertension (principal); E78.00 Pure hypercholesterolemia, unspecified; R73.02 Impaired glucose tolerance (oral); M81.0 Age-related osteoporosis without current pathological fracture

== ENCOUNTER → 2025-04-06 13:10 | Outpatient (BNVA) | payer MEDICARE, SELFPAY | PROVIDERS: PCP Internal Medicine; Visit Provider Internal Medicine | DX: I10 Essential (primary) hypertension (principal); E78.00 Pure hypercholesterolemia, unspecified; R73.02 Impaired glucose tolerance (oral); M81.0 Age-related osteoporosis without current pathological fracture | CPT/HCPCS: 96127; 99212 ==